=== PATIENT | female | born 1945 | race Caucasian/White ===

== ENCOUNTER 2018-03-14 07:57 | Emergency (ER) | payer BC, OTHER ==
[~2018-03-14] VITALS: Ht 162.6 cm; Wt 65.0 kg
[~2018-03-14 07:57] MED LIST: ASPI81CH5; LEVO.15; TAB-TAB; TOPR50TA
[2018-03-14 08:00] VITALS: BP 163/64; PULSE 97; RESP 16; TEMP 97.4; O2SAT 98
[2018-03-14] MEDS ORDERED: LOSA100T2 PO (08:17)
[2018-03-14] MEDS ORDERED: ATOR20TA15 PO (08:17)
[2018-03-14] MEDS ORDERED: LEVO137T2 PO (08:17)
[2018-03-14] MEDS ORDERED: DONE5TAB7 PO (08:17)
[2018-03-14] MEDS ORDERED: ASPI81CH7 CHEW (08:17)
[2018-03-14] MEDS ORDERED: FLUO20CA12 PO (08:17)
--- NOTE | 2018-03-14 08:36 | PD ---
HPI Chief Complaint: Headache Time Seen by Provider: 08:19 Travel History International Travel<30 days: No Contact w/Intl Traveler<30days: No Traveled to known affect area: No History of Present Illness HPI This patient complains of many things. Primary complaint is headache. She has frontal headache for her 5 days. No thunderclap onset. No fever or head injury. She takes no blood thinners. It is unusual for her to have a headache. Patient had a couple days of uncontrollable vomiting and diarrhea. That has eased off today. Yesterday she had a fall and her right leg buckled underneath her causing her pain in the knee. However no direct trauma to it. She denies neurologic deficit. Symptom severity is moderate. No alleviating factors. No exacerbating factors. PFSH Past Medical History Arthritis: Yes Cardiovascular Problems: Yes (htn on meds) High Cholesterol: Yes Dementia: Yes Diabetes: No Diminished Hearing: No Hypertension: Yes Immunizations Current: Yes Thyroid Disease: Yes Tetanus Vaccination: Unknown ?: Not Past Surgical History Appendectomy: Yes Cholecystectomy: Yes Social History Alcohol Use: No Tobacco Use: No Substance Use: No Allergies-Medications (Allergen,Severity, Reaction): Coded Allergies: codeine (Unverified Allergy, Mild, 03/14/18) penicillin G (Unverified Allergy, Mild, 03/14/18) Reported Meds & Prescriptions Reported Meds & Active Scripts Active Tramadol (Tramadol HCl) 50 Mg Tab 50 Mg PO Q6H PRN Reported Levothyroxine (Levothyroxine Sodium) 137 Mcg Tab 137 Mcg PO DAILY Losartan-Hydrochlorothiazide 100-25 Mg Tab 1 Tab PO DAILY Donepezil 5 Mg Tab 5 Mg PO HS Atorvastatin (Atorvastatin Calcium) 20 Mg Tab 20 Mg PO HS Fluoxetine (Fluoxetine HCl) 20 Mg Capsule 20 Mg PO BID Aspirin Children's (Aspirin) 81 Mg Chew 81 Mg CHEW DAILY Review of Systems General / Constitutional: No: Fever Eyes: No: Visual changes HENT: Positive: Headaches Cardiovascular: No: Chest Pain or Discomfort Respiratory: No: Shortness of Breath Gastrointestinal: Positive: Nausea, Vomiting, Diarrhea, No: Abdominal Pain Genitourinary: No: Dysuria Musculoskeletal: Positive: Pain Skin: No Rash Neurologic: Positive: Headache, No: Weakness Psychiatric: No: Depression Endocrine: No: Polydipsia Hematologic/Lymphatic: No: Easy Bruising Physical Exam Narrative GENERAL: Well-nourished, well-developed patient with headache . SKIN: Focused skin assessment reveals no rash and nodules. Skin is Warm and dry. HEAD: Atraumatic. Normocephalic. EYES: Pupils equal and round. No scleral icterus. No injection or drainage. ENT: No nasal bleeding or discharge. Mucous membranes pink and moist. NECK: Trachea midline. No JVD. No midline tenderness or meningeal signs CARDIOVASCULAR: Regular rate and rhythm. No murmur appreciated. RESPIRATORY: No accessory muscle use. Clear to auscultation. Breath sounds equal bilaterally. GASTROINTESTINAL: Abdomen soft, non-tender, nondistended. Hepatic and splenic margins not palpable. MUSCULOSKELETAL: No obvious deformities. No clubbing. No cyanosis. No edema. No long bone tenderness of the legs. Good range of motion of joints of the legs NEUROLOGICAL: Awake and alert. No obvious cranial nerve deficits. Motor grossly within normal limits. Normal speech. PSYCHIATRIC: Appropriate mood and affect; insight and judgment normal. Data Data Last Documented VS Vital Signs Date Time Temp Pulse Resp B/P (MAP) Pulse Ox O2 Delivery O2 Flow Rate FiO2 03/14/18 08:47 83 16 143/69 (93) 97 Room Air 03/14/18 08:[address] Brain W/O Iv Contrast(Rout) (03/14/18 ) Iv Access Insert/Monitor (03/14/18 08:31) Basic Metabolic Panel (Bmp) (03/14/18 08:31) Complete Blood Count With Diff (03/14/18 08:31) Ondansetron Inj (Zofran Inj) (03/14/18 08:45) Morphine Inj (Morphine Inj) (03/14/18 08:45) Labs Laboratory Tests Test 03/14/18 08:40 White Blood Count 19.1 TH/MM3 Red Blood Count 4.71 MIL/MM3 Hemoglobin 14.1 GM/DL Hematocrit 43.2 % Mean Corpuscular Volume 91.7 FL Mean Corpuscular Hemoglobin 29.8 PG Mean Corpuscular Hemoglobin Concent 32.5 % Red Cell Distribution Width 12.1 % Platelet Count 284 TH/MM3 Mean Platelet Volume 7.8 FL Neutrophils (%) (Auto) 82.8 % Lymphocytes (%) (Auto) 5.4 % Monocytes (%) (Auto) 8.0 % Eosinophils (%) (Auto) 0.4 % Basophils (%) (Auto) 3.4 % Neutrophils # (Auto) 15.8 TH/MM3 Lymphocytes # (Auto) 1.0 TH/MM3 Monocytes # (Auto) 1.5 TH/MM3 Eosinophils # (Auto) 0.1 TH/MM3 Basophils # (Auto) 0.7 TH/MM3 CBC Comment AUTO DIFF Differential Comment AUTO DIFF CONFIRMED Platelet Estimate NORMAL Platelet Morphology Comment NORMAL Red Cell Morphology Comment NORMAL Blood Urea Nitrogen 19 MG/DL Creatinine 0.81 MG/DL Random Glucose 102 MG/DL Calcium Level 10.0 MG/DL Sodium Level 137 MEQ/L Potassium Level 3.3 MEQ/L Chloride Level 103 MEQ/L Carbon Dioxide Level 25.5 MEQ/L Anion Gap 9 MEQ/L Estimat Glomerular Filtration Rate 70 ML/MIN [facility] Medical Decision Making Medical Screen Exam Complete: Yes Emergency Medical Condition: Yes Medical Record Reviewed: Yes Differential Diagnosis Differential diagnosis includes migraine, tension headache, cluster headache, meningitis. Narrative Course I have reviewed the patient's electronic medical record. No objective findings on exam. She is neurologically intact. Vital signs normal Brain CT is negative for acute findings IV placed and labs sent I gave her dose of Zofran and morphine for symptom relief She is clinically improved on recheck. Metabolic studies normal CBC shows some nonspecific leukocytosis She is not having fever or any obvious signs or symptoms of infection. She is a retired nurse. We discussed her leukocytosis and an extensive workup to look for infection but she does not want to undertake that. She is a close friend of her physician Dr. Yaron Salazar. She texted him regarding this visit and he will follow her up closely in the office. I prescribed a dozen tramadol Diagnosis Primary Impression: Headache Qualified Codes: R51 - Headache Additional Impressions: Nausea vomiting and diarrhea Leukocytosis Qualified Codes: D72.829 - Elevated white blood cell count, unspecified Additional Instructions: The patient was advised to follow up with their physician and return if they worsen. The patient was warned about potential sedation for the medications they will receive on prescription. Med/Other Pt SpecificInfo: Prescription(s) given Scripts Tramadol (Tramadol) 50 Mg Tab 50 MG PO Q6H Y for PAIN, #12 TAB 0 Refills Prov: John Ross MD 4/15/18 Disposition: 01 DISCHARGE HOME Condition: Stable John Ross MD Mar 14, 2018 08:36
[2018-03-14 08:45] LABS: AUTOMATED NEUTROPHIL # 15.8 TH/MM3 (1.8-7.7); BASOPHIL # 0.7 TH/MM3 (0-0.2); BASOPHIL % 3.4 % (0.0-2.0); EOSINOPHIL # 0.1 TH/MM3 (0-0.4); EOSINOPHIL % 0.4 % (0.0-4.0); HEMATOCRIT 43.2 % (35.0-46.0); HEMOGLOBIN 14.1 GM/DL (11.6-15.3); LYMPH % 5.4 % (9.0-44.0); MEAN CELL VOLUME 91.7 FL (80.0-100.0); MEAN CORPUSCULAR HEMOGLOBIN 29.8 PG (27.0-34.0); MEAN CORPUSCULAR HGB CONC 32.5 % (32.0-36.0); MEAN PLATELET VOLUME 7.8 FL (7.0-11.0); MONOCYTE # 1.5 TH/MM3 (0-0.9); NEUT % 82.8 % (16.0-70.0); PLATELET COUNT 284 TH/MM3 (150-450); RED BLOOD COUNT 4.71 MIL/MM3 (4.00-5.30); RED CELL DISTRIBUTION WIDTH 12.1 % (11.6-17.2); WHITE BLOOD COUNT 19.1 TH/MM3 (4.0-11.0)
[2018-03-14] MEDS ORDERED: MORPHINE SULFATE 4 MG/ML INJ IV PUSH ONE (08:45)
[2018-03-14] MEDS ORDERED: ONDANSETRON HCL 4 MG/2 ML VIAL IVP ONE (08:45)
[2018-03-14 08:47] VITALS: BP 143/69; PULSE 83; RESP 16; O2SAT 97
[2018-03-14 09:00] LABS: BICARBONATE 25.5 MEQ/L (21.0-32.0)
[2018-03-14 09:04] LABS: CREATININE 0.81 MG/DL (0.50-1.00)
--- NOTE | 2018-03-14 09:10 | RADRPT ---
EXAM DATE/TIME: 03/14/2018 08:59 [facility] COMPARISON: No previous studies available for comparison. INDICATIONS : Severe headache with nausea and vomiting. RADIATION DOSE: 51.36 CTDIvol (mGy) MEDICAL HISTORY : Hypertension. SURGICAL HISTORY : Appendectomy. Cholecystectomy. ENCOUNTER: Initial ACUITY: 4 - 6 days PAIN SCALE: 8/10 LOCATION: cranial TECHNIQUE: Multiple contiguous axial images were obtained of the head. Using automated exposure control and adj ustment of the mA and/or kV according to patient size, radiation dose was kept as low as reasonably a chievable to obtain optimal diagnostic quality images. DICOM format image data is available electro nically for review and comparison. FINDINGS: CEREBRUM: The ventricles are normal for age. No evidence of midline shift, mass lesion, hemorrhage or acute in farction. No extra-axial fluid collections are seen. POSTERIOR FOSSA: The cerebellum and brainstem are intact. The 4th ventricle is midline. The cerebellopontine angle i s unremarkable. EXTRACRANIAL: The visualized portion of the orbits is intact. SKULL: The calvaria is intact. No evidence of skull fracture. CONCLUSION: Negative for acute process. Subacute subarachnoid hemorrhage or meningitis can't be excluded. Mejia Fuentes MD FACR on March 14, 2018 at 9:07 Board Certified Radiologist. This report was verified electronically.
[2018-03-14] MEDS ORDERED: TRAM50TA PO (09:55)
[2018-03-14 10:05] VITALS: BP 176/74
== END 2018-03-14 10:20 | disposition home or self-care (01) ==
LOC: PHED 07:57
DX: R51 Headache (principal); R11.2 Nausea with vomiting, unspecified; D72.829 Elevated white blood cell count, unspecified; R19.7 Diarrhea, unspecified; M25.561 Pain in right knee; M19.90 Unspecified osteoarthritis, unspecified site; I10 Essential (primary) hypertension; E78.00 Pure hypercholesterolemia, unspecified; E07.9 Disorder of thyroid, unspecified
CPT/HCPCS: 70450; 80048; 85025; 96374; 96375; 99284; J2270; J2405

== ENCOUNTER 2018-03-17 09:55 | Inpatient (IN) | payer OTHER, MEDICARE ==
[~2018-03-17] VITALS: Ht 167.6 cm; Wt 63.2 kg
[2018-03-17] VITALS (9 sets, daily range): BP systolic 119–162; BP diastolic 55–74; PULSE 74–91; RESP 16–20; TEMP 97.9–100.9; O2SAT 95–98
[~2018-03-17 09:55] MED LIST changes: -ASPI81CH5; +ASPI81CH7 CHEW; +ATOR20TA15 PO; +DONE5TAB7 PO; +FLUO20CA12 PO; -LEVO.15; +LEVO137T2 PO; +LOSA100T2 PO; -TAB-TAB; -TOPR50TA; +TRAM50TA PO
[2018-03-17] MEDS ORDERED: SODIUM CHLOR 0.9% 1000 ML INJ 1,000 ML IV ONE (10:15)
--- NOTE | 2018-03-17 10:15 | PD ---
HPI Chief Complaint: Fall Time Seen by Provider: 10:03 Travel History International Travel<30 days: No Contact w/Intl Traveler<30days: No Traveled to known affect area: No History of Present Illness HPI This 72-year-old female says that she fell at around 8:00 last night. She fell backwards and hit her head. She said she had a loss of consciousness. She was not able to get off the floor and she spent the night on the floor. She has a history of neuropathy of unknown known etiology. She apparently saw Dr. Segundo at one time and had a spinal tap. She has been having back pain. She also says she also had a fall on Thursday night. She was seen in the emergency department on Thursday and had a CT scan of the head which was negative. She also had a fall last week. Her daughter has, provided additional information. She says that the patient has been told in the past that she has MS though she is on no medication. She had a spinal tap many years ago and then had another spinal tap 2 years ago. She has been having back pain prior to her fall and has had progressive weakness over a period of time. Daughter states that many years ago the patient was in a wheelchair and did have a loss of vision in 1 eye. The daughter says that the patient was told that she has MS many years ago she had a evaluation with Dr. GARZA about 2 years ago which included a spinal tap but the daughter believes the results were inconclusive. The patient later volunteered that she has been having some vaginal bleeding and lower abdominal pain. PFSH Past Medical History Arthritis: Yes Cardiovascular Problems: Yes (htn on meds) High Cholesterol: Yes Dementia: Yes Diabetes: No Diminished Hearing: No Hypertension: Yes Immunizations Current: Yes Thyroid Disease: Yes Past Surgical History Appendectomy: Yes Cholecystectomy: Yes Social History Alcohol Use: No Tobacco Use: No Substance Use: No Allergies-Medications (Allergen,Severity, Reaction): Coded Allergies: codeine (Unverified Allergy, Mild, 03/14/18) penicillin G (Unverified Allergy, Mild, 03/14/18) Reported Meds & Prescriptions Reported Meds & Active Scripts Active Tramadol (Tramadol HCl) 50 Mg Tab 50 Mg PO Q6H PRN Reported Levothyroxine (Levothyroxine Sodium) 137 Mcg Tab 137 Mcg PO DAILY Losartan-Hydrochlorothiazide 100-25 Mg Tab 1 Tab PO DAILY Donepezil 5 Mg Tab 5 Mg PO HS Atorvastatin (Atorvastatin Calcium) 20 Mg Tab 20 Mg PO HS Fluoxetine (Fluoxetine HCl) 20 Mg Capsule 20 Mg PO BID Aspirin Children's (Aspirin) 81 Mg Chew 81 Mg CHEW DAILY Review of Systems General / Constitutional: No: Fever, Chills Eyes: No: Diploplia, Blurred Vision HENT: Positive: Headaches Cardiovascular: No: Chest Pain or Discomfort, Palpitations Respiratory: No: Cough, Shortness of Breath Gastrointestinal: No: Nausea, Vomiting Genitourinary: No: Urgency, Frequency Musculoskeletal: No: Myalgias, Arthralgias Skin: No Rash, No Itching Neurologic: Positive: Weakness Psychiatric: No: Anxiety Endocrine: No: Heat Intolerance, Cold Intolerance Hematologic/Lymphatic: No: Easy Bruising Physical Exam Narrative GENERAL: Well-developed female SKIN: Focused skin assessment warm/dry. HEAD: Atraumatic. Normocephalic. There is a tender area in the occipital scalp EYES: Pupils equal and round. No scleral icterus. No injection or drainage. ENT: No nasal bleeding or discharge. Mucous membranes pink and moist. NECK: Trachea midline. No JVD. No midline tenderness of the neck CARDIOVASCULAR: Regular rate and rhythm. No murmur appreciated. RESPIRATORY: No accessory muscle use. Clear to auscultation. Breath sounds equal bilaterally. GASTROINTESTINAL: Abdomen soft, non-tender, nondistended. Hepatic and splenic margins not palpable. Pelvic: There is a large amount of pus in the vaginal vault. The uterus is enlarged to the level of the umbilicus and is somewhat tender MUSCULOSKELETAL: No obvious deformities. No clubbing. No cyanosis. No edema. She has some tenderness of the very low back NEUROLOGICAL: Awake and alert. No obvious cranial nerve deficits. Inspector Electromechanical are equal. Legs appear quite weak. She is unable to lift either leg against gravity. She is able to plantar and dorsiflex her feet. Babinski appears to be upgoing on the right. At times She appears to be hallucinating PSYCHIATRIC: Mood is fluctuating Data Data Last Documented VS Vital Signs Date Time Temp Pulse Resp B/P (MAP) Pulse Ox O2 Delivery O2 Flow Rate FiO2 03/17/18 13:30 74 16 152/62 (92) 97 03/17/18 09:55 97.9 Orders Orders Electrocardiogram (03/17/18 10:04) Complete Blood Count With Diff (03/17/18 10:04) Comprehensive Metabolic Panel (03/17/18 10:04) Creatine Kinase (Cpk) (03/17/18 10:04) Troponin I (03/17/18 10:04) Urinalysis - C+S If Indicated (03/17/18 10:04) Chest, Single Ap (03/17/18 10:04) Ct Brain W/O Iv Contrast(Rout) (03/17/18 10:04) Ct Lumb Spine W/O Contrast (03/17/18 10:04) Sodium Chlor 0.9% 1000 Ml Inj (Ns 1000 M (03/17/18 10:15) Mri L Spine W&W/O Contrast (03/17/18 ) CKMB (03/17/18 10:10) CKMB% (03/17/18 10:10) Ns + Kcl 20 Meq Inj (Ns + Kcl 20 Meq Inj (03/17/18 12:45) Sodium Chlorid 0.9% 500 Ml Inj (Ns 500 M (03/17/18 13:15) Creatine Kinase (Cpk) (03/17/18 13:30) Troponin I (03/17/18 13:30) Drug Screen, Random Urine (03/17/18 13:36) Urine Culture (03/17/18 13:30) Gadodiamide Pf Inj (Omniscan Pf Inj) (03/17/18 14:25) Wound Culture And Gram Stain (03/17/18 14:49) Ct Abd/Pel W Iv Contrast(Rout) (03/17/18 14:49) Ondansetron Inj (Zofran Inj) (03/17/18 15:00) Morphine Inj (Morphine Inj) (03/17/18 15:00) Labs Laboratory Tests Test 03/17/18 10:10 03/17/18 13:30 03/17/18 14:35 White Blood Count 17.9 TH/MM3 Red Blood Count 4.44 MIL/MM3 Hemoglobin 13.9 GM/DL Hematocrit 40.7 % Mean Corpuscular Volume 91.6 FL Mean Corpuscular Hemoglobin 31.3 PG Mean Corpuscular Hemoglobin Concent 34.2 % Red Cell Distribution Width 12.6 % Platelet Count 245 TH/MM3 Mean Platelet Volume 8.2 FL Neutrophils (%) (Auto) 91.3 % Lymphocytes (%) (Auto) 3.0 % Monocytes (%) (Auto) 5.3 % Eosinophils (%) (Auto) 0.2 % Basophils (%) (Auto) 0.2 % Neutrophils # (Auto) 16.5 TH/MM3 Lymphocytes # (Auto) 0.5 TH/MM3 Monocytes # (Auto) 0.9 TH/MM3 Eosinophils # (Auto) 0.0 TH/MM3 Basophils # (Auto) 0.0 TH/MM3 CBC Comment DIFF FINAL Differential Comment Blood Urea Nitrogen 35 MG/DL Creatinine 1.10 MG/DL Random Glucose 85 MG/DL Total Protein 7.0 GM/DL Albumin 2.7 GM/DL Calcium Level 10.7 MG/DL Alkaline Phosphatase 250 U/L Aspartate Amino Transf (AST/SGOT) 98 U/L Alanine Aminotransferase (ALT/SGPT) 98 U/L Total Bilirubin 0.8 MG/DL Sodium Level 135 MEQ/L Potassium Level 3.4 MEQ/L Chloride Level 98 MEQ/L Carbon Dioxide Level 25.7 MEQ/L Anion Gap 11 MEQ/L Estimat Glomerular Filtration Rate 49 ML/MIN Total Creatine Kinase 402 U/L Creatine Kinase MB 61.1 NG/ML Creatine Kinase MB % 15.2 % Troponin I LESS THAN 0.02 NG/ML Urine Collection Type CATH Urine Color YELLOW Urine Turbidity CLOUDY Urine pH 5.5 Urine Specific [place] 1.025 Urine Protein 100 mg/dL Urine Glucose (UA) NEG mg/dL Urine Ketones 40 mg/dL Urine Occult Blood LARGE Urine Nitrite NEG Urine Bilirubin NEG Urine Urobilinogen 1.0 MG/DL Urine Leukocyte Esterase NEG Urine RBC 0-3 /hpf Urine WBC 3-5 /hpf Urine Squamous Epithelial Cells 0-3 /hpf Urine Amorphous Sediment FEW Urine Bacteria RARE /hpf Urine Hyaline Casts 6-9 /lpf Urine Fine Granular Casts 6-9 /lpf Microscopic Urinalysis Comment CULTURE INDICATED MDM Medical Decision Making Medical Screen Exam Complete: Yes Emergency Medical Condition: Yes Medical Record Reviewed: Yes Differential Diagnosis Differential includes MS exacerbation, HNP, fracture Narrative Course CT scan of the lumbar spine shows extensive degenerative changes with significant spinal stenosis from L2 through L4. CT of the brain shows senescent changes with mild periventricular small vessel white matter demyelination. CPK is 400. Troponin is 0.02. EKG shows normal sinus rhythm. An MRI of the lumbar spine shows advanced multilevel degenerative spondylosis of the lumbar spine with severe canal narrowing. It was when the patient was going to MRI of that was noted that she was having vaginal bleeding. And that is the point which I did the pelvic exam. I have ordered a CT abdomen and pelvis with contrast to assess these abnormalities she has large amount of purulent drainage in the vaginal vault with an enlarged uterus Javier Maldonado MD Mar 17, 2018 10:15
[2018-03-17 10:24] LABS: AUTOMATED NEUTROPHIL # 16.5 TH/MM3 (1.8-7.7); BASOPHIL % 0.2 % (0.0-2.0); EOSINOPHIL % 0.2 % (0.0-4.0); HEMATOCRIT 40.7 % (35.0-46.0); HEMOGLOBIN 13.9 GM/DL (11.6-15.3); LYMPHOCYTE # 0.5 TH/MM3 (1.0-4.8); MEAN CELL VOLUME 91.6 FL (80.0-100.0); MEAN CORPUSCULAR HEMOGLOBIN 31.3 PG (27.0-34.0); MEAN CORPUSCULAR HGB CONC 34.2 % (32.0-36.0); MEAN PLATELET VOLUME 8.2 FL (7.0-11.0); MONO % 5.3 % (0.0-8.0); MONOCYTE # 0.9 TH/MM3 (0-0.9); NEUT % 91.3 % (16.0-70.0); PLATELET COUNT 245 TH/MM3 (150-450); RED BLOOD COUNT 4.44 MIL/MM3 (4.00-5.30); RED CELL DISTRIBUTION WIDTH 12.6 % (11.6-17.2); WHITE BLOOD COUNT 17.9 TH/MM3 (4.0-11.0)
--- NOTE | 2018-03-17 11:02 | RADRPT ---
EXAM DATE/TIME: 03/17/2018 10:36 [facility] COMPARISON: CT BRAIN W/O CONTRAST, March 14, 2018, 8:59. INDICATIONS : Trauma. Fell last night and was on the floor all night. Cephalgia. RADIATION DOSE: 52.46 CTDIvol (mGy) MEDICAL HISTORY : Dementia. Hypertension. SURGICAL HISTORY : Appendectomy. Cholecystectomy. ENCOUNTER: Initial ACUITY: 1 day PAIN SCALE: 10/10 LOCATION: cranial TECHNIQUE: Multiple contiguous axial images were obtained of the head. Using automated exposure control and adj ustment of the mA and/or kV according to patient size, radiation dose was kept as low as reasonably a chievable to obtain optimal diagnostic quality images. DICOM format image data is available electro nically for review and comparison. FINDINGS: CEREBRUM: Mild diffuse triple volume loss. Mild periventricular white matter hypodensities. The ventricles are normal for degree of atrophy. No evidence of midline shift, mass lesion, hemorrhage or acute infarct ion. No extra-axial fluid collections are seen. POSTERIOR FOSSA: The cerebellum and brainstem are intact. The 4th ventricle is midline. The cerebellopontine angle i s unremarkable. EXTRACRANIAL: The visualized portion of the orbits is intact. SKULL: The calvaria is intact. No evidence of skull fracture. CONCLUSION: 1. Senescent changes with mild periventricular small vessel ischemic white matter demyelination. 2. No acute intracranial abnormality. Jaxon Rivera MD on March 17, 2018 at 10:58 Board Certified Radiologist. This report was verified electronically.
--- NOTE | 2018-03-17 11:14 | RADRPT ---
EXAM DATE/TIME: 03/17/2018 10:50 [facility] COMPARISON: No previous studies available for comparison. INDICATIONS : Pain post fall. MEDICAL HISTORY : Hypertension. SURGICAL HISTORY : Appendectomy. Cholecystectomy. ENCOUNTER: Initial ACUITY: 1 day PAIN SCORE: 5/10 LOCATION: lumbar spine FINDINGS: A single view of the chest demonstrates the lungs to be symmetrically aerated without evidence of mas s, infiltrate or effusion. The cardiomediastinal contours are unremarkable. Osseous structures are intact. CONCLUSION: No acute disease. Mejia Fuentes MD FACR on March 17, 2018 at 11:11 Board Certified Radiologist. This report was verified electronically.
--- NOTE | 2018-03-17 11:30 | EKG ---
Date Performed: 03/17/2018 Time Performed: 10:13:02 PTAGE: 72 years EKG: Sinus rhythm POSSIBLE LEFT ATRIAL ENLARGEMENT BORDERLINE LEFT AXIS DEVIATION BORDERLINE ECG NO PREVIOUS TRACING DOCTOR: Rosenda Belle Interpretating Date/Time 03/17/2018 11:29:38
--- NOTE | 2018-03-17 11:52 | RADRPT ---
EXAM DATE/TIME: 03/17/2018 10:39 [facility] COMPARISON: No previous studies available for comparison. INDICATIONS : Trauma. Fell last night and was on the floor all night. Low back pain. RADIATION DOSE: 36.85 CTDIvol (mGy) MEDICAL HISTORY : Dementia. Hypertension. SURGICAL HISTORY : Appendectomy. Cholecystectomy. ENCOUNTER: Initial ACUITY: 1 day PAIN SCALE: 6/10 LOCATION: Lumbar spine. TECHNIQUE: Volumetric scanning of the lumbar spine was performed. Multiplanar reconstructions in the sagittal, coronal and oblique axial planes were performed. Using automated exposure control and adjustment of the mA and/or kV according to patient size, radiation dose was kept as low as reasonably achievable t o obtain optimal diagnostic quality images. DICOM format image data is available electronically for review and comparison. FINDINGS: VERTEBRAE: Normal vertebral body height. ALIGNMENT: Vacuum disc and discogenic changes are seen at L4-5 and L5-S1. T12-L1: Mild disc bulging evident without stenosis. L1-L2: Vacuum disc evident with generalized bulging, ligament hypertrophy and facet disease with moderate sp inal stenosis. L2-L3: Generalized disc bulging with hypertrophy and degenerative changes of facets with moderate to severe spinal stenosis. L3-L4: Generalized disc bulging with lateral recess stenosis, facet disease and ligament hypertrophy with se kesha spinal stenosis. L4-L5: Severe spinal stenosis and extensive facet disease. Significant left-sided neural foramina encroachm ent. Packing changes in the right facet and left facets at this motion. L5-S1: Severe spinal stenosis and bilateral neural foramina encroachment extension facet disease. Degenerative changes both SI joints Retroperitoneum intact with prominent bladder. CONCLUSION: Extensive degenerative changes radiographically significant spinal stenosis from L2-L4. Mejia Fuentes MD FACR on March 17, 2018 at 11:48 Board Certified Radiologist. This report was verified electronically.
[2018-03-17 12:17] LABS: ALBUMIN 2.7 GM/DL (3.4-5.0); AST (GOT) 98 U/L (15-37); BICARBONATE 25.7 MEQ/L (21.0-32.0); BLOOD UREA NITROGEN 35 MG/DL (7-18); CALCIUM 10.7 MG/DL (8.5-10.1); CHLORIDE 98 MEQ/L (98-107); GLOMERULAR FILTRATION RATE 49 ML/MIN (>89); GLUCOSE,RANDOM 85 MG/DL (74-106); SODIUM (NA) 135 MEQ/L (136-145)
[2018-03-17 12:18] LABS: ALT (GPT) 98 U/L (10-53)
[2018-03-17 12:22] LABS: ALKALINE PHOSPHATASE 250 U/L (45-117); TOTAL BILIRUBIN ADULT 0.8 MG/DL (0.2-1.0); TROPONIN I LESS THAN 0.02 NG/ML (0.02-0.05)
[2018-03-17] MEDS ORDERED: NS + KCL 20 MEQ INJ 1,000 ML IV ONE (12:45)
[2018-03-17] MEDS ORDERED: SODIUM CHLORID 0.9% 500 ML INJ 500 ML IV ONE (13:15)
[2018-03-17 13:57] LABS: BLOOD, URINE LARGE (NEG); GLUCOSE,URINE NEG (NEG); KETONE, URINE 40 mg/dL (NEG); NITRITE,URINE NEG (NEG); PH, URINE 5.5 (5.0-8.5); URINE COLOR YELLOW (YELLW/STRAW); URINE LEUKOCYTE ESTERASE NEG (NEG)
[2018-03-17 14:07] LABS: BILIRUBIN, URINE NEG (NEG)
[2018-03-17 14:11] LABS: RBC, URINE 0-3 /hpf (0-3); SQUAMOUS EPITHELIAL CELL URINE 0-3 /hpf (0-5)
[2018-03-17 14:12] LABS: AMORPHOUS SEDIMENT, URINE FEW; BACTERIA, URINE RARE /hpf
[2018-03-17] MEDS ORDERED: GADODIAMIDE PF 287 MG/ML 5 ML VIAL (for RAD MRI) IVCONTRAST ONE (14:25)
--- NOTE | 2018-03-17 14:58 | RADRPT ---
EXAM DATE/TIME: 03/17/2018 13:57 [facility] COMPARISON: No previous studies available for comparison. INDICATIONS : Mulitple sclerosis. Bilateral leg weakness. Abnormal CT. CONTRAST: 13 cc Omniscan (gadodiamide) IV MEDICAL HISTORY : Hypertension. SURGICAL HISTORY : Cholecystectomy. Left foot surgery. ENCOUNTER: Subsequent ACUITY: 1 day PAIN SCORE: 0/10 LOCATION: back. TECHNIQUE: Multiplanar multisequence MRI of the lumbar spine was performed with and without contrast. FINDINGS: The most caudal appearing lumbar vertebra is numbered as L5. VERTEBRAE: Diffusely heterogeneous degenerative signal. Vertebral body heights are intact. CONUS: Normal level and configuration. POST CONTRAST: 2 separate sequences were obtained due to significant motion. Despite this, there is severe motion de gradation limiting the evaluation. There's no significant abnormal bony enhancement although evaluati on of the conus is essentially not possible. T12-L1: Moderate bilateral facet arthropathy. No significant central canal or neural foraminal stenosis. L1-L2: Disc space loss with vacuum disc phenomenon. Diffuse disc bulge with bilateral facet arthropathy. Eff acement of the anterior thecal sac with central canal measuring 12 mm. Mild caudal neural foraminal n arrowing. L2-L3: Disc space narrowing with Modic endplate changes are. Diffuse disc bulge, ligamentum flavum hypertrop hy and bilateral facet arthropathy. Resultant central canal narrowing to 7 mm. Mild caudal bilateral neural frontal narrowing. L3-L4: Disc space narrowing with diffuse disc bulge, ligamentum flavum hypertrophy and prominent bilateral f acet arthropathy. Central canal narrowing to approximately 5 mm. Mild to moderate caudal bilateral ne ural foraminal narrowing. L4-L5: Severe disc space narrowing with diffuse disc bulge, ligamentum flavum hypertrophy and facet arthropa thy. Central canal is essentially completely effaced at this level measuring less than 3 mm. There is severe left neural foraminal narrowing and mild to moderate right neural foraminal narrowing. L5-S1: Severe disc space narrowing with diffuse disc bulge and facet arthropathy. Central canal measuring ap proximately 8 mm. Severe left and moderate severe right neural foraminal narrowing. CONCLUSION: 1. Very limited postcontrast images due to motion degradation. No significant abnormal enhancement al though evaluation of the conus is not possible. 2. Redemonstration of advanced multilevel degenerative spondylosis of the lumbar spine with multileve l severe spinal canal narrowing most prominently at L4-5 with near-complete effacement of the central canal. 3. Multilevel variable neural foraminal stenosis most prominently on the left at L4-5 and L5-S1. 4. Please see above for detailed description of each level. Jaxon Rivera MD on March 17, 2018 at 14:45 Board Certified Radiologist. This report was verified electronically.
[2018-03-17] MEDS ORDERED: ONDANSETRON HCL 4 MG/2 ML VIAL IV PUSH ONE (15:00)
[2018-03-17] MEDS ORDERED: MORPHINE SULFATE 8 MG/ML INJ IV PUSH ONE (15:00)
--- NOTE | 2018-03-17 15:15 | PD ---
Physical Exam Date Seen by Provider: Mar 17, 2018 Time Seen by Provider: 15:10 Narrative The patient is a 72-year-old female who was initially evaluated by Dr. Avery. Please refer to the initial history, physical, diagnostic evaluation, treatment modality plan. The patient was signed out at [address] the abdomen and pelvis pending. Data Data Last Documented VS Vital Signs Date Time Temp Pulse Resp B/P (MAP) Pulse Ox O2 Delivery O2 Flow Rate FiO2 03/17/18 16:17 16 03/17/18 16:10 89 127/62 (83) 95 Room Air 03/17/18 09:55 97.9 Orders Orders Electrocardiogram (03/17/18 10:04) Complete Blood Count With Diff (03/17/18 10:04) Comprehensive Metabolic Panel (03/17/18 10:04) Creatine Kinase (Cpk) (03/17/18 10:04) Troponin I (03/17/18 10:04) Urinalysis - C+S If Indicated (03/17/18 10:04) Chest, Single Ap (03/17/18 10:04) Ct Brain W/O Iv Contrast(Rout) (03/17/18 10:04) Ct Lumb Spine W/O Contrast (03/17/18 10:04) Sodium Chlor 0.9% 1000 Ml Inj (Ns 1000 M (03/17/18 10:15) Mri L Spine W&W/O Contrast (03/17/18 ) CKMB (03/17/18 10:10) CKMB% (03/17/18 10:10) Ns + Kcl 20 Meq Inj (Ns + Kcl 20 Meq Inj (03/17/18 12:45) Sodium Chlorid 0.9% 500 Ml Inj (Ns 500 M (03/17/18 13:15) Creatine Kinase (Cpk) (03/17/18 13:30) Troponin I (03/17/18 13:30) Drug Screen, Random Urine (03/17/18 13:36) Urine Culture (03/17/18 13:30) Gadodiamide Pf Inj (Omniscan Pf Inj) (03/17/18 14:25) Wound Culture And Gram Stain (03/17/18 14:49) Ct Abd/Pel W Iv Contrast(Rout) (03/17/18 14:49) Ondansetron Inj (Zofran Inj) (03/17/18 15:00) Morphine Inj (Morphine Inj) (03/17/18 15:00) Iohexol 350 Inj (Omnipaque 350 Inj) (03/17/18 15:59) Doxycycline (Vibramycin) (03/17/18 16:30) Metronidazole (Flagyl) (03/17/18 16:30) Admit Order (Ed Use Only) (03/17/18 16:56) Gamma Gt (Ggt) (03/17/18 14:35) Magnesium (Mg) (03/17/18 14:35) CKMB (03/17/18 14:35) CKMB% (03/17/18 14:35) Labs Laboratory Tests Test 03/17/18 10:10 03/17/18 13:30 03/17/18 14:35 White Blood Count 17.9 TH/MM3 Red Blood Count 4.44 MIL/MM3 Hemoglobin 13.9 GM/DL Hematocrit 40.7 % Mean Corpuscular Volume 91.6 FL Mean Corpuscular Hemoglobin 31.3 PG Mean Corpuscular Hemoglobin Concent 34.2 % Red Cell Distribution Width 12.6 % Platelet Count 245 TH/MM3 Mean Platelet Volume 8.2 FL Neutrophils (%) (Auto) 91.3 % Lymphocytes (%) (Auto) 3.0 % Monocytes (%) (Auto) 5.3 % Eosinophils (%) (Auto) 0.2 % Basophils (%) (Auto) 0.2 % Neutrophils # (Auto) 16.5 TH/MM3 Lymphocytes # (Auto) 0.5 TH/MM3 Monocytes # (Auto) 0.9 TH/MM3 Eosinophils # (Auto) 0.0 TH/MM3 Basophils # (Auto) 0.0 TH/MM3 CBC Comment DIFF FINAL Differential Comment Blood Urea Nitrogen 35 MG/DL Creatinine 1.10 MG/DL Random Glucose 85 MG/DL Total Protein 7.0 GM/DL Albumin 2.7 GM/DL Calcium Level 10.7 MG/DL Alkaline Phosphatase 250 U/L Aspartate Amino Transf (AST/SGOT) 98 U/L Alanine Aminotransferase (ALT/SGPT) 98 U/L Total Bilirubin 0.8 MG/DL Sodium Level 135 MEQ/L Potassium Level 3.4 MEQ/L Chloride Level 98 MEQ/L Carbon Dioxide Level 25.7 MEQ/L Anion Gap 11 MEQ/L Estimat Glomerular Filtration Rate 49 ML/MIN Total Creatine Kinase 402 U/L 309 U/L Creatine Kinase MB 61.1 NG/ML 43.3 NG/ML Creatine Kinase MB % 15.2 % 14.0 % Troponin I LESS THAN 0.02 NG/ML LESS THAN 0.02 NG/ML Urine Collection Type CATH Urine Color YELLOW Urine Turbidity CLOUDY Urine pH 5.5 Urine Specific [place] 1.025 Urine Protein 100 mg/dL Urine Glucose (UA) NEG mg/dL Urine Ketones 40 mg/dL Urine Occult Blood LARGE Urine Nitrite NEG Urine Bilirubin NEG Urine Urobilinogen 1.0 MG/DL Urine Leukocyte Esterase NEG Urine RBC 0-3 /hpf Urine WBC 3-5 /hpf Urine Squamous Epithelial Cells 0-3 /hpf Urine Amorphous Sediment FEW Urine Bacteria RARE /hpf Urine Hyaline Casts 6-9 /lpf Urine Fine Granular Casts 6-9 /lpf Microscopic Urinalysis Comment CULTURE INDICATED Urine Opiates Screen NEG Urine Barbiturates Screen NEG Urine Amphetamines Screen NEG Urine Benzodiazepines Screen NEG Urine Cocaine Screen NEG Urine Cannabinoids Screen NEG Magnesium Level 1.8 MG/DL Gamma Glutamyl Transpeptidase 217 U/L [facility] Medical Record Reviewed: Yes Supervised Visit with BRIEN: No Interpretation(s) EKG reveals normal sinus rhythm with a rate of 63. Laboratory Tests Test 03/17/18 10:10 03/17/18 13:30 03/17/18 14:35 White Blood Count 17.9 TH/MM3 Red Blood Count 4.44 MIL/MM3 Hemoglobin 13.9 GM/DL Hematocrit 40.7 % Mean Corpuscular Volume 91.6 FL Mean Corpuscular Hemoglobin 31.3 PG Mean Corpuscular Hemoglobin Concent 34.2 % Red Cell Distribution Width 12.6 % Platelet Count 245 TH/MM3 Mean Platelet Volume 8.2 FL Neutrophils (%) (Auto) 91.3 % Lymphocytes (%) (Auto) 3.0 % Monocytes (%) (Auto) 5.3 % Eosinophils (%) (Auto) 0.2 % Basophils (%) (Auto) 0.2 % Neutrophils # (Auto) 16.5 TH/MM3 Lymphocytes # (Auto) 0.5 TH/MM3 Monocytes # (Auto) 0.9 TH/MM3 Eosinophils # (Auto) 0.0 TH/MM3 Basophils # (Auto) 0.0 TH/MM3 CBC Comment DIFF FINAL Differential Comment Blood Urea Nitrogen 35 MG/DL Creatinine 1.10 MG/DL Random Glucose 85 MG/DL Total Protein 7.0 GM/DL Albumin 2.7 GM/DL Calcium Level 10.7 MG/DL Alkaline Phosphatase 250 U/L Aspartate Amino Transf (AST/SGOT) 98 U/L Alanine Aminotransferase (ALT/SGPT) 98 U/L Total Bilirubin 0.8 MG/DL Sodium Level 135 MEQ/L Potassium Level 3.4 MEQ/L Chloride Level 98 MEQ/L Carbon Dioxide Level 25.7 MEQ/L Anion Gap 11 MEQ/L Estimat Glomerular Filtration Rate 49 ML/MIN Total Creatine Kinase 402 U/L Creatine Kinase MB 61.1 NG/ML Creatine Kinase MB % 15.2 % Troponin I LESS THAN 0.02 NG/ML Urine Collection Type CATH Urine Color YELLOW Urine Turbidity CLOUDY Urine pH 5.5 Urine Specific [place] 1.025 Urine Protein 100 mg/dL Urine Glucose (UA) NEG mg/dL Urine Ketones 40 mg/dL Urine Occult Blood LARGE Urine Nitrite NEG Urine Bilirubin NEG Urine Urobilinogen 1.0 MG/DL Urine Leukocyte Esterase NEG Urine RBC 0-3 /hpf Urine WBC 3-5 /hpf Urine Squamous Epithelial Cells 0-3 /hpf Urine Amorphous Sediment FEW Urine Bacteria RARE /hpf Urine Hyaline Casts 6-9 /lpf Urine Fine Granular Casts 6-9 /lpf Microscopic Urinalysis Comment CULTURE INDICATED Last Impressions Lumbar Spine CT 03/17/18 1004 Signed Impressions: Service Date/Time: Saturday, March 17, 2018 10:39 - CONCLUSION: Extensive degenerative changes radiographically significant spinal stenosis from L2-L4. Mejia Fuentes MD FACR Head CT 03/17/18 1004 Signed Impressions: Service Date/Time: Saturday, March 17, 2018 10:36 - CONCLUSION: 1. Senescent changes with mild periventricular small vessel ischemic white matter demyelination. 2. No acute intracranial abnormality. Jaxon Rivera MD Chest X-Ray 03/17/18 1004 Signed Impressions: Service Date/Time: Saturday, March 17, 2018 10:50 - CONCLUSION: No acute disease. Mejia Fuentes MD FACR Lumbar Spine MRI 03/17/18 0000 Signed Impressions: Service Date/Time: Saturday, March 17, 2018 13:57 - CONCLUSION: 1. Very limited postcontrast images due to motion degradation. No significant abnormal enhancement although evaluation of the conus is not possible. 2. Redemonstration of advanced multilevel degenerative spondylosis of the lumbar spine with multilevel severe spinal canal narrowing most prominently at L4-5 with near-complete effacement of the central canal. 3. Multilevel variable neural foraminal stenosis most prominently on the left at L4-5 and L5-S1. 4. Please see above for detailed description of each level. Jaxon Rivera MD CT of the abdomen and pelvis reveals uterus is distended with heterogeneous debris. The appearance would be most consistent with uterine obstruction is associated with endometrial or cervical carcinoma. Differential Diagnosis Differential diagnosis includes MS, inability to ambulate, herniated disc, cauda equina syndrome, uterine tumor, PID, vaginitis, UTI, pelvic infection, fistula, rhabdomyolysis, closed head injury, intracranial hemorrhage. Narrative Course The patient is a 72-year-old female who was initially evaluated by the previous physician, Dr. Avery. Please refer to the initial history, physical, diagnostic evaluation, and treatment modality plan. The patient was signed out at [address] of the abdomen and pelvis pending for significant vaginal discharge with foul odor and enlarged uterus on physical examination. The patient apparently fell and struck her head with an LOC. CT of the brain was negative. The patient also complained of increasing low back pain with questionable history of MS. The patient did have an MRI of the lumbar spine with and without contrast which revealed some degenerative changes but no acute significant findings. The patient was signed out with CT of the abdomen and pelvis pending and subsequent admission as the patient has difficulty ambulating it was lying on the floor overnight. CT of the abdomen and pelvis reveals an enlarged uterus with debris within, suspicious for possible outlet obstruction secondary to uterine and/or cervical carcinoma. Patient has [employer] , therefore, the on-call [facility] was paged for admission. Sepsis Criteria SIRS Criteria (2 or more): WBC > 77121, < 4000 or > 10% bands Physician Communication Physician Communication The patient has [employer], therefore, [facility] were paged for admission. I discussed the patient with Dr. Moore who agrees with admission. Diagnosis Primary Impression: Uterine infection Additional Impressions: Back pain Qualified Codes: M54.5 - Low back pain; G89.29 - Other chronic pain Rhabdomyolysis Qualified Codes: T79.6XXA - Traumatic ischemia of muscle, initial encounter Admitting Information Admitting Physician Requests: Observation Condition: Stable Edilson Aburto MD Mar 17, 2018 15:15
[2018-03-17] MEDS ORDERED: IOHEXOL 350 MG/ML 10 ML VIAL (for RAD DIAG) IVCONTRAST ONE (15:59)
--- NOTE | 2018-03-17 16:16 | RADRPT ---
EXAM DATE/TIME: 03/17/2018 15:47 [facility] COMPARISON: No previous studies available for comparison. INDICATIONS : Abnormal uterus in prior MR and CT imaging. IV CONTRAST: 75 cc Omnipaque 350 (iohexol) IV ORAL CONTRAST: No oral contrast ingested. RADIATION DOSE: 11.80 CTDIvol (mGy) MEDICAL HISTORY : Multple sclerosis. Dementia. Hypertension. SURGICAL HISTORY : Appendectomy. Cholecystectomy. ENCOUNTER: Initial ACUITY: 1 day PAIN SCALE: 0/10 LOCATION: abdomen TECHNIQUE: Volumetric scanning of the abdomen and pelvis was performed. Using automated exposure control and ad justment of the mA and/or kV according to patient size, radiation dose was kept as low as reasonably achievable to obtain optimal diagnostic quality images. DICOM format image data is available electro nically for review and comparison. FINDINGS: LOWER LUNGS: Mild posterior lung base atelectasis. LIVER: Mild intra-and extrahepatic biliary ductal dilatation. No focal liver mass. Gallbladder is surgically absent SPLEEN: Normal size without lesion. PANCREAS: Within normal limits. KIDNEYS: Normal in size and shape. There is no mass, stone or hydronephrosis. ADRENAL GLANDS: Within normal limits. VASCULAR: There is no aortic aneurysm. BOWEL/MESENTERY: Distal colonic diverticulosis. No abnormal dilatation, wall thickening or focal inflammatory changes. ABDOMINAL WALL: Within normal limits. RETROPERITONEUM: There is no lymphadenopathy. BLADDER: No wall thickening or mass. REPRODUCTIVE: The uterus is grossly abnormal, appearing to be filled with abundant debris. The appearance be consis tent with cervical obstruction as likely from cancer. INGUINAL: There is no lymphadenopathy or hernia. MUSCULOSKELETAL: Prominent degenerative changes in the spine. Bone island in the left iliac wing. Degenerative changes in the hips. CONCLUSION: Uterus is distended with heterogeneous debris. The appearance would be most consistent with uterine o bstruction as associated with endometrial or cervical carcinoma. Mario Goodrich MD on March 17, 2018 at 16:09 Board Certified Radiologist. This report was verified electronically.
[2018-03-17] MEDS ORDERED: metroNIDAZOLE 500 MG TAB PO ONE (16:30)
[2018-03-17] MEDS ORDERED: DOXYCYCLINE HYCLATE 100 MG CAP PO ONE (16:30)
[2018-03-17] MEDS ORDERED: SENNOSIDES 8.6 MG TAB PO PRN (18:00)
[2018-03-17] MEDS ORDERED: ONDANSETRON HCL 4 MG/2 ML VIAL IVP PRN (18:00)
[2018-03-17] MEDS ORDERED: ZOLPIDEM TARTRATE 5 MG TAB PO PRN (18:00)
[2018-03-17] MEDS ORDERED: MAGNESIUM HYDROXIDE SUSP 30 ML CUP PO PRN (18:00)
[2018-03-17] MEDS ORDERED: NALOXONE HCL 0.4 MG/ML AMP IV PUSH PRN (18:00)
[2018-03-17] MEDS ORDERED: BISACODYL 10 MG SUPP RECTAL PRN (18:00)
[2018-03-17] MEDS ORDERED: LACTULOSE SYRUP 20 GM/30 ML CUP PO PRN (18:00)
[2018-03-17] MEDS ORDERED: SODIUM CHLORIDE 0.9% FLUSH 10 ML FLUSH IV FLUSH PRN (18:00)
[2018-03-17 18:22] LABS: GAMMA GT 217 U/L (5-55); MAGNESIUM 1.8 MG/DL (1.5-2.5)
[2018-03-17 18:25] LABS: TROPONIN I LESS THAN 0.02 NG/ML (0.02-0.05)
[2018-03-17] MEDS ORDERED: ACETAMINOPHEN 325 MG TAB PO ONE (19:15)
[2018-03-17] MEDS: LACTATED RINGER'S 1000 ML INJ 1,000 ML IV SCH (19:16)
[2018-03-17] MEDS: DOCUSATE SODIUM 50 MG/SENNA 8.6 MG TAB PO SCH (21:00)
[2018-03-17] MEDS: SODIUM CHLORIDE 0.9% FLUSH 10 ML FLUSH IV FLUSH SCH (23:07)
[2018-03-18 00:23] VITALS: BP 122/64; PULSE 76; RESP 16; TEMP 97.8; O2SAT 96
[2018-03-18] MEDS: LACTATED RINGER'S 1000 ML INJ 1,000 ML IV SCH ×2 (04:00→15:32)
[2018-03-18 04:20] VITALS: BP 131/66; PULSE 77; RESP 17; TEMP 98.2; O2SAT 97
[2018-03-18] MEDS: LEVOTHYROXINE SODIUM 112 MCG TAB PO SCH (07:04)
[2018-03-18] MEDS: LEVOTHYROXINE SODIUM 25 MCG TAB PO SCH (07:06)
[2018-03-18 07:51] LABS: BASOPHIL % 0.2 % (0.0-2.0); EOSINOPHIL # 0.1 TH/MM3 (0-0.4); EOSINOPHIL % 0.6 % (0.0-4.0); HEMATOCRIT 33.5 % (35.0-46.0); HEMOGLOBIN 11.3 GM/DL (11.6-15.3); LYMPH % 8.7 % (9.0-44.0); LYMPHOCYTE # 1.1 TH/MM3 (1.0-4.8); MEAN CELL VOLUME 92.5 FL (80.0-100.0); MEAN CORPUSCULAR HEMOGLOBIN 31.2 PG (27.0-34.0); MEAN CORPUSCULAR HGB CONC 33.8 % (32.0-36.0); MEAN PLATELET VOLUME 8.7 FL (7.0-11.0); MONO % 12.8 % (0.0-8.0); MONOCYTE # 1.6 TH/MM3 (0-0.9); NEUT % 77.7 % (16.0-70.0); PLATELET COUNT 201 TH/MM3 (150-450); RED BLOOD COUNT 3.62 MIL/MM3 (4.00-5.30); WHITE BLOOD COUNT 12.9 TH/MM3 (4.0-11.0)
[2018-03-18 07:53] VITALS: BP 161/85; PULSE 62; RESP 16; TEMP 97.9; O2SAT 98
[2018-03-18 08:03] LABS: ALKALINE PHOSPHATASE 172 U/L (45-117); ALT (GPT) 66 U/L (10-53); AST (GOT) 62 U/L (15-37); BICARBONATE 26.1 MEQ/L (21.0-32.0); BLOOD UREA NITROGEN 27 MG/DL (7-18); CALCIUM 9.4 MG/DL (8.5-10.1); CHLORIDE 109 MEQ/L (98-107); CREATININE 0.81 MG/DL (0.50-1.00); GLOMERULAR FILTRATION RATE 70 ML/MIN (>89); GLUCOSE,RANDOM 80 MG/DL (74-106); SODIUM (NA) 142 MEQ/L (136-145); TOTAL BILIRUBIN ADULT 0.3 MG/DL (0.2-1.0); TOTAL PROTEIN 5.4 GM/DL (6.4-8.2)
[2018-03-18] MEDS ORDERED: POTASSIUM CHLORIDE 10 MEQ CONTROLLED RELEASE TAB PO ONE (09:00)
[2018-03-18] MEDS: HYDROCHLOROTHIAZIDE 25 MG TAB PO SCH (09:29)
[2018-03-18] MEDS: LOSARTAN 50 MG TAB PO SCH (09:29)
[2018-03-18] MEDS: SODIUM CHLORIDE 0.9% FLUSH 10 ML FLUSH IV FLUSH SCH ×2 (09:29→21:00)
[2018-03-18] MEDS: DOCUSATE SODIUM 50 MG/SENNA 8.6 MG TAB PO SCH ×2 (09:29→23:08)
[2018-03-18] MEDS: traMADol HCL 50 MG TAB PO PRN ×2 (09:30→18:43)
[2018-03-18 11:40] VITALS: BP 164/72; PULSE 77; RESP 16; TEMP 97.9; O2SAT 97
[2018-03-18] MEDS ORDERED: methylPREDNISolone SOD SUCC 125 MG/2 ML VIAL IV PUSH ONE (14:30)
--- NOTE | 2018-03-18 14:37 | HHI.HP ---
[facility] Service [facility] Primary Care Physician Yaron Salazar M.D. Admission Diagnosis Uterine obstruction rule out carcinoma, inability to ambulate, leuko Diagnoses: Travel History International Travel<30 Days: No Contact w/Intl Traveler <30 Da: No Traveled to Known Affected Are: No History of Present Illness Mrs. Downing is a 72-year-old female. She is here today after having a gradual onset of weakness. She says she has had an onset of dyspepsia, headache and lower extremity numbness. Over the past 1-2 weeks. Just over the past 2 days she has had a acute worsening of her weakness and had 2 falls. She may have multiple sclerosis. At the age of 22 she had some sort of exacerbation and was suspected to have multiple sclerosis. She has not had exacerbations since then. This could be multiple sclerosis or alternative autoimmune exacerbation. She also complains of vaginal bleeding. Gynecology has been consulted in this regard. No other complaints today. Review of Systems Constitutional: COMPLAINS OF: Fatigue, DENIES: Fever Eyes: DENIES: Blurred vision, Diplopia, Eye inflammation, Eye pain Respiratory: DENIES: Cough, Wheezing, Shortness of breath Cardiovascular: DENIES: Chest pain, Palpitations, Syncope Gastrointestinal: DENIES: Abdominal pain, Black stools, Bloody stools, Constipation Musculoskeletal: DENIES: Joint pain, Muscle aches, Stiffness Integumentary: DENIES: Abnormal pigmentation, Pruritus, Rash, Nail changes Hematologic/lymphatic: DENIES: Bruising, Lymphadenopathy Immunologic/allergic: DENIES: Eczema, Urticaria Neurologic: COMPLAINS OF: Headache, Localized weakness, Paresthesias, Poor Balance, DENIES: Abnormal gait Psychiatric: DENIES: Anxiety, Confusion, Hallucinations Past Family Social History Past Medical History Osteoarthritis Hypertension Hyperlipidemia Mild dementia Hypothyroidism Past Surgical History Appendectomy Cholecystectomy Reported Medications Reported Meds & Active Scripts Active Tramadol (Tramadol HCl) 50 Mg Tab 50 Mg PO Q6H PRN Reported Levothyroxine (Levothyroxine Sodium) 137 Mcg Tab 137 Mcg PO DAILY Losartan-Hydrochlorothiazide 100-25 Mg Tab 1 Tab PO DAILY Donepezil 5 Mg Tab 5 Mg PO HS Atorvastatin (Atorvastatin Calcium) 20 Mg Tab 20 Mg PO HS Fluoxetine (Fluoxetine HCl) 20 Mg Capsule 20 Mg PO BID Aspirin Children's (Aspirin) 81 Mg Chew 81 Mg CHEW DAILY Allergies: Coded Allergies: codeine (Unverified Allergy, Mild, 03/14/18) penicillin G (Unverified Allergy, Mild, 03/14/18) Active Ordered Medications Administered Medications Medications (Trade) Dose Ordered Sig/Kareem Route PRN Reason Start Time Stop Time Status Last Admin Dose Admin Lactated Ringer's 1,000 ml @ 100 mls/hr Q10H IV 03/17/18 18:00 03/18/18 04:00 Sodium Chloride (NS Flush) 2 ml BID IV FLUSH 03/17/18 21:00 03/18/18 09:29 Senna/Docusate Sodium (Nargis-Colace) 1 tab BID PO 03/17/18 21:00 03/18/18 09:29 Tramadol HCl (Ultram) 50 mg Q6H PRN PO PAIN 03/17/18 18:00 03/18/18 09:30 Levothyroxine Sodium (Synthroid) 112 mcg DAILY@0600 PO 03/18/18 06:00 03/18/18 07:04 Losartan Potassium (Cozaar) 100 mg DAILY PO 03/18/18 09:00 03/18/18 09:29 Hydrochlorothiazide (Hydrodiuril) 25 mg DAILY PO 03/18/18 09:00 03/18/18 09:29 Levothyroxine Sodium (Synthroid) 25 mcg DAILY@0600 PO 03/18/18 06:00 03/18/18 07:06 Family History No known family history Social History No alcohol use No nicotine use No illicit drug abuse Physical Exam Vital Signs Vital Signs Date Time Temp Pulse Resp B/P (MAP) Pulse Ox O2 Delivery O2 Flow Rate FiO2 03/18/18 11:40 97.9 77 16 164/72 (102) 97 03/18/18 07:53 97.9 62 16 161/85 (110) 98 03/18/18 04:20 98.2 77 17 131/66 (87) 97 03/18/18 00:23 97.8 76 16 122/64 (83) 96 03/17/18 22:10 99.1 82 20 119/64 (82) 98 03/17/18 20:30 86 20 119/55 (76) 98 03/17/18 19:26 100.9 91 20 162/74 (103) 03/17/18 19:18 92 16 97 03/17/18 17:52 85 16 146/64 (91) 95 Room Air 03/17/18 16:17 16 03/17/18 16:10 89 16 127/62 (83) 95 Room Air 03/17/18 16:00 88 16 95 Room Air 03/17/18 15:30 82 16 127/64 (85) 95 Room Air Physical Exam GENERAL: This is a well-nourished, well-developed patient, in no apparent distress. SKIN: No rashes, ecchymoses or lesions. Cool and dry. HEAD: Atraumatic. Normocephalic. No temporal or scalp tenderness. EYES: Pupils equal round and reactive. Extraocular motions intact. No scleral icterus. No injection or drainage. ENT: Nose without bleeding, purulent drainage or septal hematoma. Throat without erythema, tonsillar hypertrophy or exudate. Uvula midline. Airway patent. NECK: Trachea midline. No JVD or lymphadenopathy. Supple, nontender, no meningeal signs. CARDIOVASCULAR: Regular rate and rhythm without murmurs, gallops, or rubs. RESPIRATORY: Clear to auscultation. Breath sounds equal bilaterally. No wheezes , rales, or rhonchi. GASTROINTESTINAL: Abdomen soft, non-tender, nondistended. No hepato-splenomegaly , or palpable masses. No guarding. MUSCULOSKELETAL: Extremities without clubbing, cyanosis, or edema. No joint tenderness, effusion, or edema noted. No calf tenderness. Negative Homans sign bilaterally. NEUROLOGICAL: Awake and alert. Cranial nerves II through XII intact. Motor and sensory grossly within normal limits. Five out of 5 muscle strength in all muscle groups. Normal speech. Laboratory Laboratory Tests Test 03/17/18 14:35 03/18/18 06:50 Magnesium Level 1.8 Gamma Glutamyl Transpeptidase 217 Total Creatine Kinase 309 Creatine Kinase MB 43.3 Creatine Kinase MB % 14.0 Troponin I LESS THAN 0.02 White Blood Count 12.9 Red Blood Count 3.62 Hemoglobin 11.3 Hematocrit 33.5 Mean Corpuscular Volume 92.5 Mean Corpuscular Hemoglobin 31.2 Mean Corpuscular Hemoglobin Concent 33.8 Red Cell Distribution Width 13.0 Platelet Count 201 Mean Platelet Volume 8.7 Neutrophils (%) (Auto) 77.7 Lymphocytes (%) (Auto) 8.7 Monocytes (%) (Auto) 12.8 Eosinophils (%) (Auto) 0.6 Basophils (%) (Auto) 0.2 Neutrophils # (Auto) 10.0 Lymphocytes # (Auto) 1.1 Monocytes # (Auto) 1.6 Eosinophils # (Auto) 0.1 Basophils # (Auto) 0.0 CBC Comment DIFF FINAL Differential Comment Blood Urea Nitrogen 27 Creatinine 0.81 Random Glucose 80 Total Protein 5.4 Albumin 2.0 Calcium Level 9.4 Alkaline Phosphatase 172 Aspartate Amino Transf (AST/SGOT) 62 Alanine Aminotransferase (ALT/SGPT) 66 Total Bilirubin 0.3 Sodium Level 142 Potassium Level 3.2 Chloride Level 109 Carbon Dioxide Level 26.1 Anion Gap 7 Estimat Glomerular Filtration Rate 70 Date/Time Source Procedure Growth Status 03/17/18 13:30 Urine Catheterized Urine Urine Culture Pending Received 03/17/18 15:00 Wound Groin Gram Stain - Final Resulted 03/17/18 15:00 Wound Groin Wound Culture Pending Resulted Result Diagram: 03/18/18 0650 03/18/18 0650 Caprini VTE Risk Assessment Caprini VTE Risk Assessment: Mod/High Risk (score >= 2) Caprini Risk Assessment Model Point Value = 1 Point Value = 2 Point Value = 3 Point Value = 5 Age 41-60 Minor surgery BMI > 25 kg/m2 Swollen legs Varicose veins or History of unexplained or recurrent spontaneous Oral contraceptives or hormone replacement Sepsis (< 1 month) Serious lung disease, including pneumonia (< 1 month) Abnormal pulmonary function Acute myocardial infarction Congestive heart failure (< 1 month) History of inflammatory bowel disease Medical patient at bed rest Age 61-74 Arthroscopic surgery Major open surgery (> 45 min) Laparoscopic surgery (> 45 min) Malignancy Confined to bed (> 72 hours) Immobilizing plaster cast Central venous access Age >= 75 History of VTE Family history of VTE Factor V Leiden Prothrombin [id number] Lupus anticoagulant Anticardiolipin antibodies Elevated serum homocysteine Heparin-induced thrombocytopenia Other congenital or acquired thrombophilia Stroke (< 1 month) Elective arthroplasty Hip, pelvis, or leg fracture Acute spinal cord injury (< 1 month) Prophylaxis Regimen Total Risk Factor Score Risk Level Prophylaxis Regimen 0-1 Low Early ambulation 2 Moderate Order ONE of the following: *Sequential Compression Device (SCD) *Heparin 5000 units SQ BID 3-4 Higher Order ONE of the following medications: *Heparin 5000 units SQ TID *Enoxaparin/Lovenox 40 mg SQ daily (WT < 150 kg, CrCl > 30 mL/min) *Enoxaparin/Lovenox 30 mg SQ daily (WT < 150 kg, CrCl > 10-29 mL/min) *Enoxaparin/Lovenox 30 mg SQ BID (WT < 150 kg, CrCl > 30 mL/min) AND/OR *Sequential Compression Device (SCD) 5 or more Highest Order ONE of the following medications: *Heparin 5000 units SQ TID (Preferred with Epidurals) *Enoxaparin/Lovenox 40 mg SQ daily (WT < 150 kg, CrCl > 30 mL/min) *Enoxaparin/Lovenox 30 mg SQ daily (WT < 150 kg, CrCl > 10-29 mL/min) *Enoxaparin/Lovenox 30 mg SQ BID (WT < 150 kg, CrCl > 30 mL/min) AND *Sequential Compression Device (SCD) Assessment and Plan Problem List: (1) Uterine infection ICD Code: N71.9 - Inflammatory disease of uterus, unspecified Status: Acute (2) Rhabdomyolysis ICD Code: M62.82 - Rhabdomyolysis Status: Acute (3) Back pain ICD Code: M54.9 - Dorsalgia, unspecified Status: Acute Assessment and Plan 66-year-old female admitted secondary to inflammatory exacerbation, suspected to be multiple sclerosis with evidence of uterine infection. Multiple sclerosis exacerbation versus autoimmune exacerbation High-dose systemic steroids Monitor for improvement in symptoms Physical therapy Follow for improvement Uterine infection Could be contributory to an autoimmune exacerbation Doxycycline Gynecology following Follow CBC Hypertension Continue baseline treatment Follow blood pressures Adjust treatments as needed Hyperlipidemia Continue present treatment Follow as an outpatient Mild dementia Supportive care Hypothyroidism Continue baseline treatments Follow as an outpatient DVT prophylaxis Lovenox Physician Certification 2 Midnight Certification Type: Admission for Inpatient Services Order for Inpatient Services The services are ordered in accordance with Medicare regulations or non- Medicare payer requirements, as applicable. In the case of services not specified as inpatient-only, they are appropriately provided as inpatient services in accordance with the 2-midnight benchmark. Estimated LOS (days): 2 days is the estimated time the patient will need to remain in the hospital, assuming treatment plan goals are met and no additional complications. Post-Hospital Plan: Home Problem Qualifiers (1) Rhabdomyolysis: Qualified Codes: T79.6XXA - Traumatic ischemia of muscle, initial encounter (2) Back pain: Qualified Codes: M54.5 - Low back pain; G89.29 - Other chronic pain Geo Bravo MD Mar 18, 2018 14:37
[2018-03-18 15:06] VITALS: BP 153/72; PULSE 68; RESP 16; TEMP 98; O2SAT 97
[2018-03-18] MEDS: ENOXAPARIN SODIUM 40 MG/0.4 ML SYRINGE SQ SCH (15:32)
[2018-03-18 21:09] VITALS: BP 152/72; PULSE 78; RESP 16; TEMP 98.5; O2SAT 96
[2018-03-18] MEDS: DONEPEZIL HCL 5 MG TAB PO SCH (23:08)
[2018-03-18] MEDS: ATORVASTATIN 20 MG TAB PO SCH (23:08)
[2018-03-18] MEDS: FLUoxetine HCL 20 MG CAP PO SCH (23:09)
[2018-03-18] MEDS: methylPREDNISolone SOD SUCC 40 MG/1 ML VIAL IV PUSH SCH (23:11)
[2018-03-19] VITALS (7 sets, daily range): BP systolic 130–183; BP diastolic 65–103; PULSE 54–76; RESP 16–20; TEMP 97.5–98.9; O2SAT 94–99
[2018-03-19] MEDS: methylPREDNISolone SOD SUCC 40 MG/1 ML VIAL IV PUSH SCH ×4 (02:31→21:03)
[2018-03-19] MEDS: LACTATED RINGER'S 1000 ML INJ 1,000 ML IV SCH ×4 (02:32→22:50)
[2018-03-19] MEDS: LEVOTHYROXINE SODIUM 25 MCG TAB PO SCH (05:35)
[2018-03-19] MEDS: LEVOTHYROXINE SODIUM 112 MCG TAB PO SCH (05:35)
[2018-03-19 07:47] LABS: BASOPHIL % 0.1 % (0.0-2.0); EOSINOPHIL % 0.1 % (0.0-4.0); HEMATOCRIT 34.8 % (35.0-46.0); HEMOGLOBIN 11.8 GM/DL (11.6-15.3); LYMPH % 4.4 % (9.0-44.0); LYMPHOCYTE # 0.7 TH/MM3 (1.0-4.8); MEAN CORPUSCULAR HEMOGLOBIN 31.2 PG (27.0-34.0); MEAN CORPUSCULAR HGB CONC 33.9 % (32.0-36.0); MEAN PLATELET VOLUME 8.6 FL (7.0-11.0); MONO % 3.7 % (0.0-8.0); MONOCYTE # 0.6 TH/MM3 (0-0.9); NEUT % 91.7 % (16.0-70.0); PLATELET COUNT 205 TH/MM3 (150-450); RED BLOOD COUNT 3.78 MIL/MM3 (4.00-5.30); RED CELL DISTRIBUTION WIDTH 13.2 % (11.6-17.2); WHITE BLOOD COUNT 15.2 TH/MM3 (4.0-11.0)
[2018-03-19 08:20] LABS: ALBUMIN 1.8 GM/DL (3.4-5.0); ALKALINE PHOSPHATASE 169 U/L (45-117); ALT (GPT) 51 U/L (10-53); AST (GOT) 46 U/L (15-37); BICARBONATE 28.9 MEQ/L (21.0-32.0); BLOOD UREA NITROGEN 14 MG/DL (7-18); CALCIUM 9.5 MG/DL (8.5-10.1); CHLORIDE 108 MEQ/L (98-107); CREATININE 0.61 MG/DL (0.50-1.00); GLOMERULAR FILTRATION RATE 97 ML/MIN (>89); GLUCOSE,RANDOM 136 MG/DL (74-106); SODIUM (NA) 143 MEQ/L (136-145); TOTAL BILIRUBIN ADULT 0.3 MG/DL (0.2-1.0); TOTAL PROTEIN 5.4 GM/DL (6.4-8.2)
[2018-03-19] MEDS: HYDROCHLOROTHIAZIDE 25 MG TAB PO SCH (08:56)
[2018-03-19] MEDS: ASPIRIN 81 MG CHEW TAB CHEW SCH (08:56)
[2018-03-19] MEDS: LOSARTAN 50 MG TAB PO SCH (08:57)
[2018-03-19] MEDS: FLUoxetine HCL 20 MG CAP PO SCH ×2 (08:57→21:02)
[2018-03-19] MEDS: SODIUM CHLORIDE 0.9% FLUSH 10 ML FLUSH IV FLUSH SCH ×2 (08:57→21:02)
[2018-03-19] MEDS: DOCUSATE SODIUM 50 MG/SENNA 8.6 MG TAB PO SCH ×2 (08:57→21:02)
[2018-03-19 10:39] LABS: BANDS 25 % (0-6); LYMPHOCYTES 4 % (9-44); MONOCYTES 1 % (0-8); NEUTROPHIL # MANUAL DIFF 14.3 TH/MM3 (1.8-7.7); PLASMA CELLS 1 % (0-0); POLYS (SEG NEUTROPHILS) 69 % (16-70)
--- NOTE | 2018-03-19 11:33 | PD.CONS ---
History of Present Illness Service EDISCOVERY PROJECT MANAGER CONSULTATION NOTE Consult Requested By [facility] Reason for Consult Mass on CT Primary Care Physician Yaron Salazar M.D. Diagnoses: History of Present Illness This is a 72-year-old who presented to the ED with severe muscular pain in her full body. She is admitted for further workup and started on steroids. She notes that she has had 6-7 days of abdominal pain, vaginal bleeding/discharge, and headache. Denies shortness of breath or chest pain. She did have a fall at home on Thursday morning of unknown etiology. Review of Systems Constitutional: COMPLAINS OF: Weight loss (16 pounds last 2 months), DENIES: Fever Eyes: DENIES: Blurred vision, Diplopia Respiratory: DENIES: Cough, Shortness of breath Cardiovascular: DENIES: Chest pain, Syncope Gastrointestinal: COMPLAINS OF: Abdominal pain Genitourinary: COMPLAINS OF: Abnormal vaginal bleeding, Vaginal discharge Musculoskeletal: DENIES: Joint pain, Muscle aches Integumentary: DENIES: Pruritus, Rash Hematologic/lymphatic: DENIES: Bruising, Lymphadenopathy Neurologic: DENIES: Abnormal gait, Headache Psychiatric: DENIES: Anxiety, Confusion Past Family Social History Allergies: Coded Allergies: codeine (Unverified Allergy, Mild, 03/14/18) penicillin G (Unverified Allergy, Mild, 03/14/18) Past Medical History Hypertension, hypothyroidism, hyperlipidemia Past Surgical History Tonsillectomy, appendectomy, cholecystitis Reported Medications Reported Meds & Active Scripts Active Tramadol (Tramadol HCl) 50 Mg Tab 50 Mg PO Q6H PRN Reported Levothyroxine (Levothyroxine Sodium) 137 Mcg Tab 137 Mcg PO DAILY Losartan-Hydrochlorothiazide 100-25 Mg Tab 1 Tab PO DAILY Donepezil 5 Mg Tab 5 Mg PO HS Atorvastatin (Atorvastatin Calcium) 20 Mg Tab 20 Mg PO HS Fluoxetine (Fluoxetine HCl) 20 Mg Capsule 20 Mg PO BID Aspirin Children's (Aspirin) 81 Mg Chew 81 Mg CHEW DAILY Active Ordered Medications Inpatient Medications Acetaminophen (Tylenol) 650 mg ONCE ONCE PO Last administered on 03/17/18at 19: 17; Start 03/17/18 at 19:15; Stop 03/17/18 at 19:16; Status DC Aspirin (Aspirin Chew) 81 mg DAILY CHEW Last administered on 03/19/18at 08:56; Start 03/19/18 at 09:00 Atorvastatin Calcium (Lipitor) 20 mg HS PO Last administered on 03/18/18 23:08 ; Start 03/18/18 at 21:00 Bisacodyl (Dulcolax Supp) 10 mg DAILY PRN RECTAL SEVERE CONSITIPATION; Start at 18:00 Donepezil HCl (Aricept) 5 mg HS PO Last administered on 03/18/18at 23:08; Start 03/18/18 at 21:00 Doxycycline Hyclate (Vibramycin) 100 mg ONCE ONCE PO Last administered on 03/17 18:01; Start 03/17/18 at 16:30; Stop 03/17/18 at 16:31; Status DC Enoxaparin Sodium (Lovenox Inj) 40 mg Q24H SQ Last administered on 03/18/18at 15 :32; Start 03/18/18 at 14:45 Fluoxetine HCl (PROzac) 20 mg BID PO Last administered on 03/19/18 08:57; Start 03/18/18 at 21:00 Hydrochlorothiazide (Hydrodiuril) 25 mg DAILY PO Last administered on 08:56; Start 03/18/18 at 09:00 Lactated Ringer's 1,000 ml @ 100 mls/hr Q10H IV Last administered on 10:00; Start 03/17/18 at 18:00 Lactulose (Lactulose Liq) 30 ml DAILY PRN PO SEVERE CONSITIPATION; Start at 18:00 Levothyroxine Sodium (Synthroid) 25 mcg DAILY@0600 PO Last administered on 03/19 05:35; Start 03/18/18 at 06:00 Losartan Potassium (Cozaar) 100 mg DAILY PO Last administered on 03/19/18 08: 57; Start 03/18/18 at 09:00 Magnesium Hydroxide (Milk Of Magnesia Liq) 30 ml Q12H PRN PO Mild constipation ; Start 03/17/18 at 18:00 Methylprednisolone Sodium Succinate (SoluMEDROL INJ) 40 mg Q6H IV PUSH Last administered on 03/19/18 08:57; Start 03/18/18 at 20:00 Metronidazole (Flagyl) 500 mg ONCE ONCE PO Last administered on 03/17/18at 18: 01; Start 03/17/18 at 16:30; Stop 03/17/18 at 16:31; Status DC Morphine Sulfate (Morphine Inj) 6 mg ONCE ONCE IV PUSH Last administered on at 15:01; Start 03/17/18 at 15:00; Stop 03/17/18 at 15:01; Status DC Naloxone HCl (Narcan Inj) 0.4 mg UNSCH PRN IV PUSH SEE LABEL COMMENTS; Start at 18:00 Ondansetron HCl (Zofran Inj) 4 mg Q6H PRN IVP NAUSEA OR VOMITING; Start at 18:00 Potassium Chloride/Sodium Chloride 1,000 ml @ 250 mls/hr Q4H ONCE IV Last administered on 03/17/18at 14:06; Start 03/17/18 at 12:45; Stop 03/17/18 at 16:44 ; Status DC Potassium Chloride (KCl) 30 meq ONCE ONCE PO Last administered on 03/18/18at 09 :30; Start 03/18/18 at 09:00; Stop 03/18/18 at 09:02; Status DC Senna/Docusate Sodium (Nargis-Colace) 1 tab BID PO Last administered on at 08:57; Start 03/17/18 at 21:00 Sennosides (Senokot) 17.2 mg Q12H PRN PO Moderate constipation; Start 03/17/18 at 18:00 Sodium Chloride (NS Flush) 2 ml BID IV FLUSH Last administered on 03/19/18at 08: 57; Start 03/17/18 at 21:00 Tramadol HCl (Ultram) 50 mg Q6H PRN PO PAIN Last administered on 03/18/18at 18: 43; Start 03/17/18 at 18:00 Zolpidem Tartrate (Ambien) 5 mg HS PRN PO INSOMNIA; Start 03/17/18 at 18:00 Family History Mother with breast cancer at advanced age Social History per EMR denies alcohol, tobacco, illicit drug use Physical Exam Vital Signs Vital Signs Date Time Temp Pulse Resp B/P (MAP) Pulse Ox O2 Delivery O2 Flow Rate FiO2 03/19/18 10:05 151/82 (105) 03/19/18 07:56 98.1 70 16 183/103 (129) 96 03/19/18 03:26 98.3 62 16 159/74 (102) 94 03/19/18 00:25 98.9 76 16 130/65 (86) 95 03/18/18 21:09 98.5 78 16 152/72 (98) 96 03/18/18 15:06 98.0 68 16 153/72 (99) 97 03/18/18 11:40 97.9 77 16 164/72 (102) 97 Physical Exam GENERAL: This is a well-nourished, well-developed patient, in no apparent distress. SKIN: There are healing abrasions ecchymoses on the bony prominences of the lower extremities and left elbow. Skin is cool and dry HEAD: Atraumatic. Normocephalic. No temporal or scalp tenderness. EYES: Pupils equal and EOMI. No scleral icterus. No injection or drainage. ENT: Airway patent. Trachea midline. RESPIRATORY: Clear to auscultation. Breath sounds equal bilaterally. No wheezes , rales, or rhonchi. GASTROINTESTINAL: Abdomen notable healed right upper quadrant surgical scar, palpable right lower quadrant nontender mass. No skin changes noted. No guarding. MUSCULOSKELETAL: Extremities without clubbing, cyanosis, or edema. No joint tenderness, effusion, or edema noted. NEUROLOGICAL: Awake and alert. Cranial nerves II through XII grossly intact. Normal speech. GENITOURINARY: External Genitalia: intact and normal in appearance. Speculum exam notable for malodorous serosanguineous fluid of large volume. Bimanual exam notable for 18 weeks size uterus. Palpated intravaginal mass appreciated on uterus vs cervix via bimanual exam. Cervix: large mass, unclear if mass visualized is cervical vs. uterine in origin Laboratory Laboratory Tests Test 03/19/18 06:51 White Blood Count 15.2 Red Blood Count 3.78 Hemoglobin 11.8 Hematocrit 34.8 Mean Corpuscular Volume 92.0 Mean Corpuscular Hemoglobin 31.2 Mean Corpuscular Hemoglobin Concent 33.9 Red Cell Distribution Width 13.2 Platelet Count 205 Mean Platelet Volume 8.6 Neutrophils (%) (Auto) 91.7 Lymphocytes (%) (Auto) 4.4 Monocytes (%) (Auto) 3.7 Eosinophils (%) (Auto) 0.1 Basophils (%) (Auto) 0.1 Neutrophils # (Auto) 14.0 Lymphocytes # (Auto) 0.7 Monocytes # (Auto) 0.6 Eosinophils # (Auto) 0.0 Basophils # (Auto) 0.0 CBC Comment AUTO DIFF Differential Total Cells Counted 100 Neutrophils % (Manual) 69 Band Neutrophils % 25 Lymphocytes % 4 Monocytes % 1 Neutrophils # (Manual) 14.3 Differential Comment FINAL DIFF MANUAL Plasma Cells 1 Platelet Estimate NORMAL Platelet Morphology Comment NORMAL Red Cell Morphology Comment NORMAL Blood Urea Nitrogen 14 Creatinine 0.61 Random Glucose 136 Total Protein 5.4 Albumin 1.8 Calcium Level 9.5 Alkaline Phosphatase 169 Aspartate Amino Transf (AST/SGOT) 46 Alanine Aminotransferase (ALT/SGPT) 51 Total Bilirubin 0.3 Sodium Level 143 Potassium Level 3.5 Chloride Level 108 Carbon Dioxide Level 28.9 Anion Gap 6 Estimat Glomerular Filtration Rate 97 Date/Time Source Procedure Growth Status 03/17/18 13:30 Urine Catheterized Urine Urine Culture - Preliminary NO GROWTH IN 24 HOURS. Resulted 03/17/18 15:00 Wound Groin Gram Stain - Final Complete 03/17/18 15:00 Wound Culture - Final Escherichia Coli Complete Result Diagram: 03/19/18 0651 03/19/18 0651 Imaging Last Impressions Abdomen/Pelvis CT 03/17/18 1449 Signed Impressions: Service Date/Time: Saturday, March 17, 2018 15:47 - CONCLUSION: Uterus is distended with heterogeneous debris. The appearance would be most consistent with uterine obstruction as associated with endometrial or cervical carcinoma. Mario Goodrich MD Lumbar Spine CT 03/17/18 1004 Signed Impressions: Service Date/Time: Saturday, March 17, 2018 10:39 - CONCLUSION: Extensive degenerative changes radiographically significant spinal stenosis from L2-L4. Mejia Fuentes MD FACR Head CT 03/17/18 1004 Signed Impressions: Service Date/Time: Saturday, March 17, 2018 10:36 - CONCLUSION: 1. Senescent changes with mild periventricular small vessel ischemic white matter demyelination. 2. No acute intracranial abnormality. Jaxon Rivera MD Chest X-Ray 03/17/18 1004 Signed Impressions: Service Date/Time: Saturday, March 17, 2018 10:50 - CONCLUSION: No acute disease. Mejia Fuentes MD FACR Lumbar Spine MRI 03/17/18 0000 Signed Impressions: Service Date/Time: Saturday, March 17, 2018 13:57 - CONCLUSION: 1. Very limited postcontrast images due to motion degradation. No significant abnormal enhancement although evaluation of the conus is not possible. 2. Redemonstration of advanced multilevel degenerative spondylosis of the lumbar spine with multilevel severe spinal canal narrowing most prominently at L4-5 with near-complete effacement of the central canal. 3. Multilevel variable neural foraminal stenosis most prominently on the left at L4-5 and L5-S1. 4. Please see above for detailed description of each level. Jaxon Rivera MD Assessment and Plan Assessment and Plan 72-year-old female with CT abdomen/pelvis findings malignancy. Uterus is distended with heterogeneous fiber within is also uterine outlet obstruction concerning for either endometrial or cervical carcinoma and clinical exam consistent with this differential. Additional concern is patient's 16-lb weight loss in 2 months. Differential also include fungating degenerating fibroid though is lower on the differential. No acute concern for infection at this time. Patient does require further workup prior to full disposition for this finding. Plan is as follows: * Obtain CA 19-9, CEA, CA-125. CA-125 elevated at 78. * Obtain Pelvic US: showing heterogeneous mass without obvious source. * Defer bedside biopsy given unclear etiology of mass and risk for bleeding. * Further disposition based on results * Will need EDISCOVERY PROJECT MANAGER follow-up - WOULD BENEFIT FROM DIRECT EDISCOVERY PROJECT MANAGER/ONCOLOGY FOLLOW UP SO NOT TO DELAY CARE. Patient was seen and discussed with Dr. Deshpande who agrees with above plan. Patient was discussed with Dr. Bravo who agrees with plan of care. Bonita King MD R2 Mar 19, 2018 11:33
--- NOTE | 2018-03-19 11:56 | HHI.PR ---
Subjective Remarks No new complaints today. She says her strength is improving. She feels like she could ambulate. Gynecological exam is highly suspect for cancer which is causing her uterine obstruction and symptoms. Further workup is in process. Objective Vital Signs Date Time Temp Pulse Resp B/P (MAP) Pulse Ox O2 Delivery O2 Flow Rate FiO2 03/19/18 10:05 151/82 (105) 03/19/18 07:56 98.1 70 16 183/103 (129) 96 03/19/18 03:26 98.3 62 16 159/74 (102) 94 03/19/18 00:25 98.9 76 16 130/65 (86) 95 03/18/18 21:09 98.5 78 16 152/72 (98) 96 03/18/18 15:06 98.0 68 16 153/72 (99) 97 I/O 03/18/18 03/18/18 03/18/18 03/19/18 03/19/18 03/19/18 07:00 15:00 23:00 07:00 15:00 23:00 Intake Total 1650 ml 1300 ml Output Total 300 ml 550 ml 300 ml Balance 1350 ml 750 ml -300 ml Intake Oral 250 ml 500 ml IV Total 1400 ml 800 ml Output Urine Total 300 ml 550 ml 300 ml Result Diagram: 03/19/18 0651 03/19/18 0651 Objective Remarks GENERAL: NAD, A&Ox3 HEAD: Normocephalic. NECK: Supple, trachea midline. No lymphadenopathy. EYES: No scleral icterus. No injection or drainage. CARDIOVASCULAR: Regular rate and rhythm without murmurs, gallops, or rubs. RESPIRATORY: Breath sounds equal bilaterally. No accessory muscle use. GASTROINTESTINAL: Abdomen soft, non-tender, nondistended. MUSCULOSKELETAL: No cyanosis, or edema. SKIN: Warm and dry. NEURO: No focal neurological deficitis. A/P Problem List: (1) Multiple sclerosis exacerbation ICD Code: G35 - Multiple sclerosis (2) Uterine mass ICD Code: N85.9 - Noninflammatory disorder of uterus, unspecified (3) Uterine infection ICD Code: N71.9 - Inflammatory disease of uterus, unspecified Status: Acute (4) Rhabdomyolysis ICD Code: M62.82 - Rhabdomyolysis Status: Acute (5) Back pain ICD Code: M54.9 - Dorsalgia, unspecified Status: Acute Assessment and Plan 66-year-old female admitted secondary to inflammatory exacerbation, suspected to be multiple sclerosis with evidence of uterine infection. Multiple sclerosis exacerbation versus autoimmune exacerbation Continue high-dose systemic steroids Symptoms improving Physical therapy Follow for improvement Uterine infection Uterine mass Uterine masses of concern, including cervical cancer or endometrial cancer or other Doxycycline Gynecology following Further workup by gynecology including ultrasound at this time Follow CBC Hypertension Continue baseline treatment Follow blood pressures Adjust treatments as needed Hyperlipidemia Continue present treatment Follow as an outpatient Mild dementia Supportive care Hypothyroidism Continue baseline treatments Follow as an outpatient DVT prophylaxis Lovenox Problem Qualifiers (1) Rhabdomyolysis: Qualified Codes: T79.6XXA - Traumatic ischemia of muscle, initial encounter (2) Back pain: Qualified Codes: M54.5 - Low back pain; G89.29 - Other chronic pain Geo Bravo MD Mar 19, 2018 11:56
[2018-03-19] MEDS: ENOXAPARIN SODIUM 40 MG/0.4 ML SYRINGE SQ SCH (14:50)
[2018-03-19 18:56] LABS: CA 125 78.1 U/ML (0.0-30.2); CA 19-9 36.6 U/ML (0.0-35.0)
[2018-03-19 19:17] LABS: CARCINOEMBRYONIC ANTIGEN 1.3 NG/ML (0.2-5.0)
[2018-03-19] MEDS: DONEPEZIL HCL 5 MG TAB PO SCH (21:02)
[2018-03-19] MEDS: ATORVASTATIN 20 MG TAB PO SCH (21:02)
[2018-03-19] MEDS: traMADol HCL 50 MG TAB PO PRN (22:55)
[2018-03-20] VITALS (8 sets, daily range): BP systolic 113–195; BP diastolic 56–97; PULSE 52–80; RESP 16–19; TEMP 97.3–98.5; O2SAT 95–100
--- NOTE | 2018-03-20 00:07 | RADRPT ---
EXAM DATE/TIME: 03/19/2018 17:40 [facility] COMPARISON: CT ABDOMEN & PELVIS W CONTRAST, March 17, 2018, 15:47. INDICATIONS : Vaginal bleeding. MEDICAL HISTORY : Osteoporosis. Hypertension. Hypothyroidism. Mild dimentia. SURGICAL HISTORY : Appendectomy. Cholecystectomy. ENCOUNTER: Initial ACUITY: 1 week PAIN SCORE: 3/10 LOCATION: Bilateral pelvis MEASUREMENTS: UTERUS: cm ENDOMETRIAL STRIPE: RIGHT OVARY: cm Non visualized LEFT OVARY: cm Non visualized FINDINGS: UTERUS: The uterus is markedly abnormal. It is enlarged and the endometrial canal is filled with mixed echoge nicity material including fluid. Limited evaluation of the lower uterine segment and cervical region secondary to air. No discernible mass. RIGHT OVARY: The ovary is not visualized. No adnexal mass or fluid collection is seen. LEFT OVARY: The ovary is not visualized. No adnexal mass or fluid collection is seen. MISCELLANEOUS: No free fluid. CONCLUSION: Markedly abnormal uterus which is enlarged and contains heterogeneous material including fluid within the endometrial canal. I'm not able to clearly identify a mass, however, the lower uterine segment a nd cervix are poorly visualized on this study. Consider MRI of the pelvis with contrast as follow. Ne ither ovary visualized. Sotero Fernando Jr., MD on March 20, 2018 at 0:02 Board Certified Radiologist. This report was verified electronically.
[2018-03-20] MEDS: methylPREDNISolone SOD SUCC 40 MG/1 ML VIAL IV PUSH SCH ×4 (02:16→19:57)
[2018-03-20 04:32] LABS: AUTOMATED NEUTROPHIL # 14.5 TH/MM3 (1.8-7.7); BASOPHIL % 0.1 % (0.0-2.0); HEMATOCRIT 33.6 % (35.0-46.0); HEMOGLOBIN 11.4 GM/DL (11.6-15.3); LYMPH % 7.4 % (9.0-44.0); LYMPHOCYTE # 1.2 TH/MM3 (1.0-4.8); MEAN CELL VOLUME 91.6 FL (80.0-100.0); MEAN CORPUSCULAR HGB CONC 33.9 % (32.0-36.0); MEAN PLATELET VOLUME 9.1 FL (7.0-11.0); MONO % 5.8 % (0.0-8.0); NEUT % 86.7 % (16.0-70.0); PLATELET COUNT 225 TH/MM3 (150-450); RED BLOOD COUNT 3.67 MIL/MM3 (4.00-5.30); RED CELL DISTRIBUTION WIDTH 13.4 % (11.6-17.2); WHITE BLOOD COUNT 16.8 TH/MM3 (4.0-11.0)
[2018-03-20 04:39] LABS: ALBUMIN 1.8 GM/DL (3.4-5.0); ALT (GPT) 53 U/L (10-53); AST (GOT) 49 U/L (15-37); BICARBONATE 28.4 MEQ/L (21.0-32.0); BLOOD UREA NITROGEN 18 MG/DL (7-18); CALCIUM 9.5 MG/DL (8.5-10.1); CHLORIDE 108 MEQ/L (98-107); CREATININE 0.58 MG/DL (0.50-1.00); GLOMERULAR FILTRATION RATE 102 ML/MIN (>89); GLUCOSE,RANDOM 131 MG/DL (74-106); MAGNESIUM 1.7 MG/DL (1.5-2.5); SODIUM (NA) 144 MEQ/L (136-145)
[2018-03-20 04:41] LABS: ALKALINE PHOSPHATASE 148 U/L (45-117); TOTAL BILIRUBIN ADULT 0.2 MG/DL (0.2-1.0); TOTAL PROTEIN 5.1 GM/DL (6.4-8.2)
[2018-03-20 05:32] LABS: LYMPHOCYTES 3 % (9-44); MONOCYTES 5 % (0-8); MYELOCYTES 1 % (0-0); NEUTROPHIL # MANUAL DIFF 15.5 TH/MM3 (1.8-7.7); POLYS (SEG NEUTROPHILS) 91 % (16-70)
[2018-03-20] MEDS: LEVOTHYROXINE SODIUM 112 MCG TAB PO SCH (06:30)
[2018-03-20] MEDS: LEVOTHYROXINE SODIUM 25 MCG TAB PO SCH (06:30)
[2018-03-20] MEDS: DOCUSATE SODIUM 50 MG/SENNA 8.6 MG TAB PO SCH ×2 (08:39→19:51)
[2018-03-20] MEDS: LOSARTAN 50 MG TAB PO SCH (08:39)
[2018-03-20] MEDS: traMADol HCL 50 MG TAB PO PRN (08:40)
[2018-03-20] MEDS: FLUoxetine HCL 20 MG CAP PO SCH ×2 (08:40→19:53)
[2018-03-20] MEDS: HYDROCHLOROTHIAZIDE 25 MG TAB PO SCH (08:40)
[2018-03-20] MEDS: SODIUM CHLORIDE 0.9% FLUSH 10 ML FLUSH IV FLUSH SCH ×2 (08:40→19:55)
[2018-03-20] MEDS: ASPIRIN 81 MG CHEW TAB CHEW SCH (08:40)
[2018-03-20] MEDS ORDERED: POTASSIUM CHLORIDE 20 MEQ CONTROLLED RELEASE TAB PO ONE (10:00)
[2018-03-20] MEDS ORDERED: GLYCERIN ADULT 2 GM SUPP RECTAL PRN (12:00)
[2018-03-20] MEDS: cloNIDine HCL 0.1 MG TAB PO PRN (12:29)
[2018-03-20] MEDS: ENOXAPARIN SODIUM 40 MG/0.4 ML SYRINGE SQ SCH (13:19)
[2018-03-20] MEDS: HYDROmorphone HCL PF 2 MG/ML VIAL IV PUSH PRN (15:08)
--- NOTE | 2018-03-20 15:15 | PD.CONS ---
History & Physical H&P ENGRAVER TIRE MOLD consult follow-up Patient is 72-year-old white female para 2 who has history of vaginal bleeding discharge, abdominal pain, syncope, she was sent from [place] to [facility] [address] scan and ultrasound showed an enlarged uterus filled with fluid and tissue and a large lower uterine segment mass. CA 125 is 78 which is elevated I was called today because the patient passed some blood clots per vagina. I went and examined the patient. Exam-normal external genitalia with some blood noted on the pad and on the vulva which appeared normal;, in the vagina there is a large soft brown tissue mass approximately baseball size this mass essentially fills three fourths of the vagina almost growing to the point of presenting at the introitus. On visualizing with the speculum there is some minimal amount of old blood buildup around and underneath this. And on digital exam I could not get around the soft tissue mass to get back to the cervical os . However because this soft tissue mass is really soft and he can just break off pieces of with the examining hand, that is what I did several small pieces then one large piece that was 7 x 5 cm, this tissue is roach-brown and very fleshy and soft. And apparently is relatively avascular because his whole area did not bleed from this manipulation. 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 Bennett the ENGRAVER TIRE MOLD oncologist, obviously await tissue results, and plan therapy accordingly Glen Shi II, MD Mar 20, 2018 15:15
[2018-03-20] MEDS ORDERED: hydrALAZINE HCL 20 MG/ML VIAL IV PUSH ONE (17:00)
--- NOTE | 2018-03-20 18:18 | HHI.PR ---
Subjective Remarks This morning patient only complained of dizziness. She is not quite aware what is going on with her uterus. I did my best to fill her in without causing her distress. Objective Vitals Vital Signs Date Time Temp Pulse Resp B/P (MAP) Pulse Ox O2 Delivery O2 Flow Rate FiO2 03/20/18 17:51 58 18 113/58 (76) 96 03/20/18 17:27 80 18 181/84 (116) 100 03/20/18 15:38 18 03/20/18 14:37 195/90 (125) 03/20/18 12:00 98.0 52 18 187/97 (127) 98 03/20/18 09:40 18 03/20/18 08:00 97.4 52 18 179/94 (122) 98 03/20/18 04:00 98.5 55 19 182/91 (121) 95 03/20/18 00:00 97.6 57 18 171/92 (118) 95 03/19/18 20:57 97.8 54 20 177/79 (111) 96 I/O 03/19/18 03/19/18 03/19/18 03/20/18 03/20/18 03/20/18 07:00 15:00 23:00 07:00 15:00 23:00 Intake Total 1720 ml 1000 ml Output Total 300 ml Balance -300 ml 1720 ml 1000 ml Intake Oral 720 ml 300 ml IV Total 1000 ml 700 ml Output Urine Total 300 ml # Voids 1 2 2 # Bowel Movements 1 # Sanitary Pads 1 Pads Result Diagram: 03/20/18 0342 03/20/18 0342 Objective Remarks GENERAL: Well-nourished, well-developed patient. SKIN: Warm and dry. HEAD: Normocephalic. EYES: No scleral icterus. No injection or drainage. NECK: Supple, trachea midline. No JVD or lymphadenopathy. CARDIOVASCULAR: Regular rate and rhythm without murmurs, gallops, or rubs. RESPIRATORY: Breath sounds equal bilaterally. No accessory muscle use. GASTROINTESTINAL: Abdomen soft, non-tender, nondistended. EXTREMITIES: No cyanosis, or trace edema NEUROLOGICAL: Awake, alert, and oriented x 3. Non-focal. A/P Problem List: (1) Uterine infection ICD Code: N71.9 - Inflammatory disease of uterus, unspecified Status: Acute (2) Rhabdomyolysis ICD Code: M62.82 - Rhabdomyolysis Status: Acute (3) Back pain ICD Code: M54.9 - Dorsalgia, unspecified Status: Acute Assessment and Plan Uterine mass w/ signs of infection Uterine masses concerning for malignancy Uterine ultrasound shows widespread abnormality, MRI deferred due to today's obtaining of tissue sample Gynecology was able to obtain a tissue sample during manual exam today, sent to pathology Follow pathology for identification Once identification is confirmed consult 3rd grade teacher-onc Continue doxycycline Benign paroxysmal positional vertigo Patient has history of MS which should be considered, however the onset of her symptoms are more consistent with BPPV Recommend continuing IV steroids Patient states she is somewhat improved Will request specific PT therapy (Ade's maneuver) if symptoms persist Hypertension Elevated pressure today into the 190s despite pain management following biopsy Clonidine as needed, hydralazine as needed Continue home meds as baseline Mild dementia By daughter's report, continue supportive care Hypothyroidism Continue home meds DVT prophylaxis Lovenox Problem Qualifiers (1) Rhabdomyolysis: Qualified Codes: T79.6XXA - Traumatic ischemia of muscle, initial encounter (2) Back pain: Qualified Codes: M54.5 - Low back pain; G89.29 - Other chronic pain Russ Bravo MD Mar 20, 2018 18:18
[2018-03-20] MEDS: ATORVASTATIN 20 MG TAB PO SCH (19:51)
[2018-03-20] MEDS: DONEPEZIL HCL 5 MG TAB PO SCH (19:54)
[2018-03-21] VITALS (8 sets, daily range): BP systolic 148–193; BP diastolic 67–93; PULSE 52–96; RESP 16–18; TEMP 97.4–98; O2SAT 96–99
[2018-03-21] MEDS: LEVOTHYROXINE SODIUM 25 MCG TAB PO SCH (04:05)
[2018-03-21] MEDS: methylPREDNISolone SOD SUCC 40 MG/1 ML VIAL IV PUSH SCH ×4 (04:05→19:40)
[2018-03-21] MEDS: LEVOTHYROXINE SODIUM 112 MCG TAB PO SCH (04:05)
[2018-03-21] MEDS: FLUoxetine HCL 20 MG CAP PO SCH ×2 (08:36→19:39)
[2018-03-21] MEDS: DOCUSATE SODIUM 50 MG/SENNA 8.6 MG TAB PO SCH ×2 (08:37→19:39)
[2018-03-21] MEDS: SODIUM CHLORIDE 0.9% FLUSH 10 ML FLUSH IV FLUSH SCH ×2 (08:37→19:40)
[2018-03-21] MEDS: HYDROCHLOROTHIAZIDE 25 MG TAB PO SCH (08:37)
[2018-03-21] MEDS: LOSARTAN 50 MG TAB PO SCH (08:37)
[2018-03-21] MEDS: cloNIDine HCL 0.1 MG TAB PO PRN ×2 (13:30→19:39)
--- NOTE | 2018-03-21 16:02 | HHI.PR ---
Subjective Remarks 72-year-old female with vertigo and uterine mass. She had a manual biopsy of a growth in her vaginal wall yesterday by gynecology, she had pain following this procedure. Today her pain is improved. She feels less vertigo and on her previous 2 days here. Objective Vitals Vital Signs Date Time Temp Pulse Resp B/P (MAP) Pulse Ox O2 Delivery O2 Flow Rate FiO2 03/21/18 13:00 97.8 56 16 161/79 (106) 96 03/21/18 09:30 56 160/76 (104) 03/21/18 08:30 97.4 52 16 190/83 (118) 98 03/21/18 04:00 98.0 64 16 150/86 (107) 96 03/21/18 00:00 97.5 96 16 150/75 (100) 97 03/20/18 20:00 97.3 55 16 119/56 (77) 97 03/20/18 17:51 58 18 113/58 (76) 96 03/20/18 17:27 80 18 181/84 (116) 100 I/O 03/20/18 03/20/18 03/20/18 03/21/18 03/21/18 03/21/18 07:00 15:00 23:00 07:00 15:00 23:00 Intake Total 1000 ml 1080 ml 240 ml Balance 1000 ml 1080 ml 240 ml Intake Oral 300 ml 1080 ml 240 ml IV Total 700 ml # Voids 2 3 2 # Bowel Movements 1 # Sanitary Pads 1 Pads 2 Pads 1 Pads 3 Pads Result Diagram: 03/20/18 0342 03/20/18 0342 Objective Remarks GENERAL: Well-nourished, well-developed patient. SKIN: Warm and dry. HEAD: Normocephalic. EYES: No scleral icterus. No injection or drainage. NECK: Supple, trachea midline. No JVD or lymphadenopathy. CARDIOVASCULAR: Regular rate and rhythm without murmurs, gallops, or rubs. RESPIRATORY: Breath sounds equal bilaterally. No accessory muscle use. GASTROINTESTINAL: Abdomen soft, non-tender, nondistended. EXTREMITIES: No cyanosis, or trace edema NEUROLOGICAL: Awake, alert, and oriented x 3. Non-focal. A/P Problem List: (1) Uterine infection ICD Code: N71.9 - Inflammatory disease of uterus, unspecified Status: Acute (2) Rhabdomyolysis ICD Code: M62.82 - Rhabdomyolysis Status: Acute (3) Back pain ICD Code: M54.9 - Dorsalgia, unspecified Status: Acute Assessment and Plan Uterine mass w/ signs of infection Uterine masses concerning for malignancy Uterine ultrasound shows widespread abnormality, MRI deferred due to today's obtaining of tissue sample Gynecology was able to obtain a tissue sample during manual exam 03/20, pathology results pending Consult retail and promotions coordinator-onc once pathology results are resulted Continue doxycycline Benign paroxysmal positional vertigo Patient has history of MS which should be considered, however the onset of her symptoms are more consistent with BPPV Continue IV steroids Patient states she feels well today, vertigo is minimal Hypertension Clonidine as needed, hydralazine as needed Continue home meds as baseline coverage Mild dementia By daughter's report, continue supportive care Hypothyroidism Continue home meds DVT prophylaxis Lovenox Problem Qualifiers (1) Rhabdomyolysis: Qualified Codes: T79.6XXA - Traumatic ischemia of muscle, initial encounter (2) Back pain: Qualified Codes: M54.5 - Low back pain; G89.29 - Other chronic pain Russ Bravo MD Mar 21, 2018 16:02
[2018-03-21] MEDS: DONEPEZIL HCL 5 MG TAB PO SCH (19:39)
[2018-03-21] MEDS: ATORVASTATIN 20 MG TAB PO SCH (19:39)
[2018-03-21] MEDS: traMADol HCL 50 MG TAB PO PRN (21:34)
[2018-03-21] MEDS ORDERED: hydrALAZINE HCL 20 MG/ML VIAL IV PUSH ONE (21:45)
[2018-03-22] MEDS: methylPREDNISolone SOD SUCC 40 MG/1 ML VIAL IV PUSH SCH ×2 (03:31→09:14)
[2018-03-22] MEDS: LEVOTHYROXINE SODIUM 112 MCG TAB PO SCH (03:32)
[2018-03-22] MEDS: LEVOTHYROXINE SODIUM 25 MCG TAB PO SCH (03:32)
[2018-03-22 04:22] VITALS: BP_SYST 150; BP_SYST 156; BP_DIAS 70; BP_DIAS 86; PULSE 64; RESP 16; TEMP 98; O2SAT 96
[2018-03-22 06:27] LABS: HEMATOCRIT 35.3 % (35.0-46.0); HEMOGLOBIN 11.9 GM/DL (11.6-15.3); MEAN CORPUSCULAR HEMOGLOBIN 30.7 PG (27.0-34.0); MEAN CORPUSCULAR HGB CONC 33.8 % (32.0-36.0); MEAN PLATELET VOLUME 8.7 FL (7.0-11.0); PLATELET COUNT 303 TH/MM3 (150-450); RED BLOOD COUNT 3.88 MIL/MM3 (4.00-5.30); RED CELL DISTRIBUTION WIDTH 13.1 % (11.6-17.2); WHITE BLOOD COUNT 22.9 TH/MM3 (4.0-11.0)
[2018-03-22 06:49] LABS: BICARBONATE 27.6 MEQ/L (21.0-32.0); CALCIUM 9.6 MG/DL (8.5-10.1); CREATININE 0.58 MG/DL (0.50-1.00)
[2018-03-22 09:06] VITALS: BP 133/60; PULSE 65; RESP 18; TEMP 97.8; O2SAT 98
[2018-03-22] MEDS: LOSARTAN 50 MG TAB PO SCH (09:14)
[2018-03-22] MEDS: FLUoxetine HCL 20 MG CAP PO SCH ×2 (09:14→21:28)
[2018-03-22] MEDS: HYDROCHLOROTHIAZIDE 25 MG TAB PO SCH (09:14)
[2018-03-22] MEDS: DOCUSATE SODIUM 50 MG/SENNA 8.6 MG TAB PO SCH ×3 (09:15→21:29)
[2018-03-22] MEDS: SODIUM CHLORIDE 0.9% FLUSH 10 ML FLUSH IV FLUSH SCH ×2 (09:15→21:28)
--- NOTE | 2018-03-22 12:20 | HHI.PR ---
Subjective Remarks Patient c/o abdominal cramping and vaginal bleeding. Denies cp/sob Afebrile Denies dizziness Objective Vitals Vital Signs Date Time Temp Pulse Resp B/P (MAP) Pulse Ox O2 Delivery O2 Flow Rate FiO2 03/22/18 09:06 97.8 65 18 133/60 (84) 98 03/22/18 04:22 98.0 64 16 156/70 (98) 96 03/21/18 23:00 98.0 60 16 148/67 (94) 96 03/21/18 20:00 97.5 67 16 193/93 (126) 97 03/21/18 17:45 98.0 54 18 172/84 (113) 99 03/21/18 13:00 97.8 56 16 161/79 (106) 96 I/O 03/21/18 03/21/18 03/21/18 03/22/18 03/22/18 03/22/18 07:00 15:00 23:00 07:00 15:00 23:00 Intake Total 240 ml 1080 ml 120 ml Output Total 50 ml Balance 240 ml 1080 ml 70 ml Intake Oral 240 ml 1080 ml 120 ml Output Urine Total 50 ml # Voids 2 4 4 # Bowel Movements 2 # Sanitary Pads 2 Pads 1 Pads 3 Pads Result Diagram: 03/22/18 0604 03/22/18 0604 Imaging Last Impressions Pelvis Ultrasound 03/19/18 1121 Signed Impressions: Service Date/Time: Monday, March 19, 2018 17:40 - CONCLUSION: Markedly abnormal uterus which is enlarged and contains heterogeneous material including fluid within the endometrial canal. I'm not able to clearly identify a mass, however, the lower uterine segment and cervix are poorly visualized on this study. Consider MRI of the pelvis with contrast as follow. Neither ovary visualized. Sotero Fernando Jr., MD Abdomen/Pelvis CT 03/17/18 1449 Signed Impressions: Service Date/Time: Saturday, March 17, 2018 15:47 - CONCLUSION: Uterus is distended with heterogeneous debris. The appearance would be most consistent with uterine obstruction as associated with endometrial or cervical carcinoma. Mario Goodrich MD Lumbar Spine CT 03/17/18 1004 Signed Impressions: Service Date/Time: Saturday, March 17, 2018 10:39 - CONCLUSION: Extensive degenerative changes radiographically significant spinal stenosis from L2-L4. Mejia Fuentes MD FACR Head CT 03/17/18 1004 Signed Impressions: Service Date/Time: Saturday, March 17, 2018 10:36 - CONCLUSION: 1. Senescent changes with mild periventricular small vessel ischemic white matter demyelination. 2. No acute intracranial abnormality. Jaxon Rivera MD Chest X-Ray 03/17/18 1004 Signed Impressions: Service Date/Time: Saturday, March 17, 2018 10:50 - CONCLUSION: No acute disease. Mejia Fuentes MD FACR Lumbar Spine MRI 03/17/18 0000 Signed Impressions: Service Date/Time: Saturday, March 17, 2018 13:57 - CONCLUSION: 1. Very limited postcontrast images due to motion degradation. No significant abnormal enhancement although evaluation of the conus is not possible. 2. Redemonstration of advanced multilevel degenerative spondylosis of the lumbar spine with multilevel severe spinal canal narrowing most prominently at L4-5 with near-complete effacement of the central canal. 3. Multilevel variable neural foraminal stenosis most prominently on the left at L4-5 and L5-S1. 4. Please see above for detailed description of each level. Jaxon Rivera MD Objective Remarks AAOx3, moderate distress due to pain Clear lungs BL S1S2 RRR, no MRG abdomen soft, moderately tender to palpation of hypogastric region, no rebound tenderness no edema in lower extremities Large clot and active vaginal bleeding Procedures none Medications and IVs Current Medications Medications (Trade) Dose Ordered Sig/Kareem Route Start Time Stop Time Status Last Admin (NS Flush) 2 ml UNSCH PRN IV FLUSH 03/17/18 18:00 (NS Flush) 2 ml BID IV FLUSH 03/17/18 21:00 03/22/18 09:15 (Zofran Inj) 4 mg Q6H PRN IVP 03/17/18 18:00 (Ambien) 5 mg HS PRN PO 03/17/18 18:00 (Narcan Inj) 0.4 mg UNSCH PRN IV PUSH 03/17/18 18:00 (Nargis-Colace) 1 tab BID PO 03/17/18 21:00 03/22/18 09:15 (Milk Of Magnesia Liq) 30 ml Q12H PRN PO 03/17/18 18:00 (Senokot) 17.2 mg Q12H PRN PO 03/17/18 18:00 (Dulcolax Supp) 10 mg DAILY PRN RECTAL 03/17/18 18:00 (Lactulose Liq) 30 ml DAILY PRN PO 03/17/18 18:00 (Ultram) 50 mg Q6H PRN PO 03/17/18 18:00 03/21/18 21:34 (Synthroid) 112 mcg DAILY@0600 PO 03/18/18 06:00 03/22/18 03:32 (Cozaar) 100 mg DAILY PO 03/18/18 09:00 03/22/18 09:14 (Hydrodiuril) 25 mg DAILY PO 03/18/18 09:00 03/22/18 09:14 (Synthroid) 25 mcg DAILY@0600 PO 03/18/18 06:00 03/22/18 03:32 (SoluMEDROL INJ) 40 mg Q6H IV PUSH 03/18/18 20:00 03/22/18 09:14 (Lipitor) 20 mg HS PO 03/18/18 21:00 03/21/18 19:39 (Aricept) 5 mg HS PO 03/18/18 21:00 03/21/18 19:39 (PROzac) 20 mg BID PO 03/18/18 21:00 03/22/18 09:14 (Glycerin Adult Supp) 2 gm BID PRN RECTAL 03/20/18 12:00 (Catapres) 0.1 mg Q6H PRN PO 03/20/18 12:15 03/21/18 19:39 (Dilaudid Pf Inj) 0.5 mg Q4H PRN IV PUSH 03/20/18 15:00 03/20/18 15:08 A/P Problem List: (1) Uterine infection ICD Code: N71.9 - Inflammatory disease of uterus, unspecified Status: Acute (2) Rhabdomyolysis ICD Code: M62.82 - Rhabdomyolysis Status: Acute (3) Back pain ICD Code: M54.9 - Dorsalgia, unspecified Status: Acute (4) Uterine mass ICD Code: N85.9 - Noninflammatory disorder of uterus, unspecified Status: Acute (5) Vaginal bleeding ICD Code: N93.9 - Abnormal uterine and vaginal bleeding, unspecified Assessment and Plan Uterine mass w signs of infection Uterine masses concerning for malignancy with elevated CA-19-9 and CEA 125. Uterine ultrasound shows widespread abnormality, MRI deferred due to today's obtaining of tissue sample Gynecology was able to obtain a tissue sample during manual exam 03/20, pathology results pending 03/22 continue oral doxycycline for presumptive infection as per previous records. Patient with active GI bleeding. Discussed with RN will contact [employer] and will get stat CBC and correlation profile. Benign paroxysmal positional vertigo Patient has history of MS which should be considered, however the onset of her symptoms are more consistent with BPPV Patient states she feels well today, vertigo is minimal 03/22 will start steroid taper. Decrease Solu-Medrol dose to 40 g IV every 12 hours. Hypertension Clonidine as needed, hydralazine as needed Continue home meds as baseline coverage 03/22 blood pressure has been persistently elevated into the 140s up to 190s. Continue as needed antihypertensive medications as above. Continue losartan and HCTZ. Mild dementia By daughter's report, continue supportive care Seems stable. Hypothyroidism On levothyroxine. Continue. Vaginal bleeding Suspect patient is bleeding from mass. Will order stat CBC and monitor hemoglobin trend. Also ordered stat correlation profile. Discussed with RN who will contact [employer] physician. Transfuse as needed for hemoglobin less than 8 with a target of hemoglobin more than 9. DVT prophylaxis As per previous records the patient supposedly on Lovenox, however upon review of active medication list, the patient is not on Lovenox. Discharge Planning Continue to monitor on the medical floor. Pending pathology results, with active vaginal bleeding. Problem Qualifiers (1) Rhabdomyolysis: Qualified Codes: T79.6XXA - Traumatic ischemia of muscle, initial encounter (2) Back pain: Qualified Codes: M54.5 - Low back pain; G89.29 - Other chronic pain Howard Demarco MD Mar 22, 2018 12:20
[2018-03-22] MEDS: traMADol HCL 50 MG TAB PO PRN (12:41)
[2018-03-22 12:58] VITALS: BP 172/80; PULSE 52; RESP 18; TEMP 97.4; O2SAT 96
[2018-03-22] MEDS: HYDROmorphone HCL PF 2 MG/ML VIAL IV PUSH PRN (13:00)
[2018-03-22 13:30] VITALS: BP 152/67
[2018-03-22 14:06] LABS: HEMATOCRIT 36.1 % (35.0-46.0); HEMOGLOBIN 12.1 GM/DL (11.6-15.3); MEAN CELL VOLUME 91.4 FL (80.0-100.0); MEAN CORPUSCULAR HEMOGLOBIN 30.7 PG (27.0-34.0); MEAN CORPUSCULAR HGB CONC 33.6 % (32.0-36.0); MEAN PLATELET VOLUME 8.6 FL (7.0-11.0); PLATELET COUNT 384 TH/MM3 (150-450); RED BLOOD COUNT 3.95 MIL/MM3 (4.00-5.30); RED CELL DISTRIBUTION WIDTH 12.9 % (11.6-17.2); WHITE BLOOD COUNT 31.9 TH/MM3 (4.0-11.0)
[2018-03-22 14:22] LABS: INTERNATIONAL NORMALIZED RATIO 1.1 RATIO; PROTHROMBIN TIME - PATIENT 11.2 SEC (9.8-11.6)
[2018-03-22 16:22] VITALS: BP 131/73; PULSE 57; RESP 18; TEMP 97.8; O2SAT 96
[2018-03-22 20:00] VITALS: BP 151/70; PULSE 59; RESP 16; TEMP 97.8; O2SAT 98
[2018-03-22] MEDS: DONEPEZIL HCL 5 MG TAB PO SCH (21:28)
[2018-03-22] MEDS: ATORVASTATIN 20 MG TAB PO SCH (21:29)
[2018-03-22 22:11] LABS: HEMATOCRIT 36.6 % (35.0-46.0); HEMOGLOBIN 12.1 GM/DL (11.6-15.3); MEAN CELL VOLUME 92.3 FL (80.0-100.0); MEAN CORPUSCULAR HEMOGLOBIN 30.4 PG (27.0-34.0); MEAN PLATELET VOLUME 8.9 FL (7.0-11.0); PLATELET COUNT 377 TH/MM3 (150-450); RED BLOOD COUNT 3.97 MIL/MM3 (4.00-5.30); WHITE BLOOD COUNT 36.9 TH/MM3 (4.0-11.0)
[2018-03-23] VITALS: BP 132/80; PULSE 62; RESP 16; TEMP 97.8; O2SAT 98
[2018-03-23 04:00] VITALS: BP 168/74; PULSE 57; RESP 16; TEMP 97.9; O2SAT 97
[2018-03-23] MEDS: LEVOTHYROXINE SODIUM 25 MCG TAB PO SCH (06:05)
[2018-03-23] MEDS: LEVOTHYROXINE SODIUM 112 MCG TAB PO SCH (06:05)
[2018-03-23 06:34] LABS: ALBUMIN 1.9 GM/DL (3.4-5.0); ALT (GPT) 72 U/L (10-53); AST (GOT) 35 U/L (15-37); BICARBONATE 28.6 MEQ/L (21.0-32.0); BLOOD UREA NITROGEN 24 MG/DL (7-18); CALCIUM 9.4 MG/DL (8.5-10.1); CHLORIDE 107 MEQ/L (98-107); CREATININE 0.61 MG/DL (0.50-1.00); GLOMERULAR FILTRATION RATE 97 ML/MIN (>89); GLUCOSE,RANDOM 80 MG/DL (74-106); SODIUM (NA) 143 MEQ/L (136-145)
[2018-03-23 06:40] LABS: ALKALINE PHOSPHATASE 110 U/L (45-117); TOTAL BILIRUBIN ADULT 0.4 MG/DL (0.2-1.0); TOTAL PROTEIN 4.6 GM/DL (6.4-8.2)
[2018-03-23 06:46] LABS: AUTOMATED NEUTROPHIL # 25.9 TH/MM3 (1.8-7.7); BASOPHIL # 0.1 TH/MM3 (0-0.2); BASOPHIL % 0.4 % (0.0-2.0); EOSINOPHIL % 0.1 % (0.0-4.0); HEMATOCRIT 33.3 % (35.0-46.0); HEMOGLOBIN 11.2 GM/DL (11.6-15.3); LYMPHOCYTE # 4.1 TH/MM3 (1.0-4.8); MEAN CELL VOLUME 92.6 FL (80.0-100.0); MEAN CORPUSCULAR HEMOGLOBIN 31.1 PG (27.0-34.0); MEAN CORPUSCULAR HGB CONC 33.5 % (32.0-36.0); MEAN PLATELET VOLUME 8.7 FL (7.0-11.0); MONO % 4.6 % (0.0-8.0); MONOCYTE # 1.5 TH/MM3 (0-0.9); NEUT % 81.9 % (16.0-70.0); PLATELET COUNT 311 TH/MM3 (150-450); RED BLOOD COUNT 3.59 MIL/MM3 (4.00-5.30); RED CELL DISTRIBUTION WIDTH 12.8 % (11.6-17.2); WHITE BLOOD COUNT 31.6 TH/MM3 (4.0-11.0)
[2018-03-23 08:05] VITALS: BP 163/80; PULSE 62; RESP 16; TEMP 98.4; O2SAT 97
[2018-03-23 08:23] LABS: BANDS 4 % (0-6); LYMPHOCYTES 10 % (9-44); METAMYELOCYTES 1 % (0-1); MONOCYTES 4 % (0-8); MYELOCYTES 1 % (0-0); NEUTROPHIL # MANUAL DIFF 27.2 TH/MM3 (1.8-7.7); POLYS (SEG NEUTROPHILS) 80 % (16-70)
[2018-03-23] MEDS: LOSARTAN 50 MG TAB PO SCH (08:43)
[2018-03-23] MEDS: HYDROCHLOROTHIAZIDE 25 MG TAB PO SCH (08:43)
[2018-03-23] MEDS: FLUoxetine HCL 20 MG CAP PO SCH ×2 (08:43→20:57)
[2018-03-23] MEDS: DOCUSATE SODIUM 50 MG/SENNA 8.6 MG TAB PO SCH ×2 (08:44→21:00)
[2018-03-23] MEDS: SODIUM CHLORIDE 0.9% FLUSH 10 ML FLUSH IV FLUSH SCH ×2 (08:44→20:57)
[2018-03-23] MEDS ORDERED: POTASSIUM CHLORIDE 10 MEQ CONTROLLED RELEASE TAB PO ONE (09:15)
[2018-03-23] MEDS: traMADol HCL 50 MG TAB PO PRN (12:13)
[2018-03-23] MEDS ORDERED: HYDROmorphone HCL PF 0.5 MG/0.5 ML SYRINGE IV PRN (12:15)
[2018-03-23] MEDS: predniSONE 20 MG TAB PO SCH ×2 (12:16→20:54)
[2018-03-23 12:45] VITALS: BP 154/72; PULSE 58; RESP 16; TEMP 97.6; O2SAT 98
--- NOTE | 2018-03-23 15:44 | HHI.PR ---
Subjective Remarks c/o low backl pain 7/10 in intensity. Denies fevers or chills. Patient states she still having vaginal bleeding. Objective Vitals Vital Signs Date Time Temp Pulse Resp B/P (MAP) Pulse Ox O2 Delivery O2 Flow Rate FiO2 03/23/18 12:45 97.6 58 16 154/72 (99) 98 03/23/18 08:05 98.4 62 16 163/80 (107) 97 03/23/18 04:00 97.9 57 16 168/74 (105) 97 03/23/18 00:00 97.8 62 16 132/80 (97) 98 03/22/18 20:00 97.8 59 16 151/70 (97) 98 03/22/18 16:22 97.8 57 18 131/73 (92) 96 I/O 03/22/18 03/22/18 03/22/18 03/23/18 03/23/18 03/23/18 06:59 14:59 22:59 06:59 14:59 22:59 Intake Total 120 ml 560 ml 150 ml Output Total 50 ml Balance 70 ml 560 ml 150 ml Intake Oral 120 ml 560 ml 150 ml Output Urine Total 50 ml # Voids 4 6 2 # Bowel Movements 1 1 Result Diagram: 03/23/18 0527 03/23/18 0527 Imaging Last Impressions Pelvis Ultrasound 03/19/18 1121 Signed Impressions: Service Date/Time: Monday, March 19, 2018 17:40 - CONCLUSION: Markedly abnormal uterus which is enlarged and contains heterogeneous material including fluid within the endometrial canal. I'm not able to clearly identify a mass, however, the lower uterine segment and cervix are poorly visualized on this study. Consider MRI of the pelvis with contrast as follow. Neither ovary visualized. Sotero Fernando Jr., MD Abdomen/Pelvis CT 03/17/18 1449 Signed Impressions: Service Date/Time: Saturday, March 17, 2018 15:47 - CONCLUSION: Uterus is distended with heterogeneous debris. The appearance would be most consistent with uterine obstruction as associated with endometrial or cervical carcinoma. Mario Goodrich MD Lumbar Spine CT 03/17/18 1004 Signed Impressions: Service Date/Time: Saturday, March 17, 2018 10:39 - CONCLUSION: Extensive degenerative changes radiographically significant spinal stenosis from L2-L4. Mejia Fuentes MD FACR Head CT 03/17/18 1004 Signed Impressions: Service Date/Time: Saturday, March 17, 2018 10:36 - CONCLUSION: 1. Senescent changes with mild periventricular small vessel ischemic white matter demyelination. 2. No acute intracranial abnormality. Jaxon Rivera MD Chest X-Ray 03/17/18 1004 Signed Impressions: Service Date/Time: Saturday, March 17, 2018 10:50 - CONCLUSION: No acute disease. Mejia Fuentes MD FACR Lumbar Spine MRI 03/17/18 0000 Signed Impressions: Service Date/Time: Saturday, March 17, 2018 13:57 - CONCLUSION: 1. Very limited postcontrast images due to motion degradation. No significant abnormal enhancement although evaluation of the conus is not possible. 2. Redemonstration of advanced multilevel degenerative spondylosis of the lumbar spine with multilevel severe spinal canal narrowing most prominently at L4-5 with near-complete effacement of the central canal. 3. Multilevel variable neural foraminal stenosis most prominently on the left at L4-5 and L5-S1. 4. Please see above for detailed description of each level. Jaxon Rivera MD Objective Remarks AAOx3, moderate distress due to pain Clear lungs BL S1S2 RRR, no MRG abdomen soft, moderately tender to palpation of hypogastric region, no rebound tenderness no edema in lower extremities + vaginal bleeding cranial nerves II through XII appear to be normal. Muscle strength is 5/5 in all extremities. Intact sensation in all extremities. Procedures none Medications and IVs Current Medications Medications (Trade) Dose Ordered Sig/Kareem Route Start Time Stop Time Status Last Admin (NS Flush) 2 ml UNSCH PRN IV FLUSH 03/17/18 18:00 (NS Flush) 2 ml BID IV FLUSH 03/17/18 21:00 03/23/18 08:44 (Zofran Inj) 4 mg Q6H PRN IVP 03/17/18 18:00 (Ambien) 5 mg HS PRN PO 03/17/18 18:00 03/22/18 21:32 (Narcan Inj) 0.4 mg UNSCH PRN IV PUSH 03/17/18 18:00 (Nargis-Colace) 1 tab BID PO 03/17/18 21:00 03/22/18 09:15 (Milk Of Magnesia Liq) 30 ml Q12H PRN PO 03/17/18 18:00 (Senokot) 17.2 mg Q12H PRN PO 03/17/18 18:00 (Dulcolax Supp) 10 mg DAILY PRN RECTAL 03/17/18 18:00 (Lactulose Liq) 30 ml DAILY PRN PO 03/17/18 18:00 (Ultram) 50 mg Q6H PRN PO 03/17/18 18:00 03/23/18 12:13 (Synthroid) 112 mcg DAILY@0600 PO 03/18/18 06:00 03/23/18 06:05 (Cozaar) 100 mg DAILY PO 03/18/18 09:00 03/23/18 08:43 (Hydrodiuril) 25 mg DAILY PO 03/18/18 09:00 03/23/18 08:43 (Synthroid) 25 mcg DAILY@0600 PO 03/18/18 06:00 03/23/18 06:05 (Lipitor) 20 mg HS PO 03/18/18 21:00 03/22/18 21:29 (Aricept) 5 mg HS PO 03/18/18 21:00 03/22/18 21:28 (PROzac) 20 mg BID PO 03/18/18 21:00 03/23/18 08:43 (Glycerin Adult Supp) 2 gm BID PRN RECTAL 03/20/18 12:00 (Catapres) 0.1 mg Q6H PRN PO 03/20/18 12:15 03/21/18 19:39 (Deltasone) 20 mg BID PO 03/23/18 09:15 03/23/18 12:16 (Dilaudid Pf Inj) 0.5 mg Q4H PRN IV 03/23/18 12:15 A/P Problem List: (1) Uterine infection ICD Code: N71.9 - Inflammatory disease of uterus, unspecified Status: Acute (2) Rhabdomyolysis ICD Code: M62.82 - Rhabdomyolysis Status: Acute (3) Back pain ICD Code: M54.9 - Dorsalgia, unspecified Status: Acute (4) Uterine mass ICD Code: N85.9 - Noninflammatory disorder of uterus, unspecified Status: Acute (5) Vaginal bleeding ICD Code: N93.9 - Abnormal uterine and vaginal bleeding, unspecified (6) Leukocytosis ICD Code: D72.829 - Elevated white blood cell count, unspecified Plan: Patient presented with leukocytosis of 17.9 and bandemia. Patient met sepsis criteria on admission with leukocytosis, bandemia and heart rate more than 90. The patient was started on doxycycline. Continue. Leukocytosis trended up to 30 6.9K, however patient was placed on IV steroids. WBC trending down, 30 1.6K today. Continue to monitor CBC with differential. (7) Sepsis ICD Code: A41.9 - Sepsis, unspecified organism Plan: Suspected uterine infection on admission -as per ED documentation the patient had a large amount of purulent drainage in the vaginal vault with an enlarged uterus. Continue doxycycline. (8) Central stenosis of spinal canal ICD Code: M48.00 - Spinal stenosis, site unspecified Assessment and Plan Uterine mass w signs of infection Uterine masses concerning for malignancy with elevated CA-19-9 and CEA 125. Uterine ultrasound shows widespread abnormality, MRI deferred due to today's obtaining of tissue sample Gynecology was able to obtain a tissue sample during manual exam 03/20, pathology results pending 03/22 continue oral doxycycline for presumptive infection as per previous records. Patient with active GI bleeding. Discussed with RN will contact [employer] and will get stat CBC and c anticoagulate and profile. 03/23 awaiting [facility] [facility]/oncology recommendations. Monitor H&H every 12 hours. Awaiting pathology results. Benign paroxysmal positional vertigo Patient has history of MS which should be considered, however the onset of her symptoms are more consistent with BPPV Patient states she feels well today, vertigo is minimal 03/23 DC IV Solu-Medrol and start the patient on prednisone taper. Dizziness resolved. Hypertension Clonidine as needed, hydralazine as needed Continue home meds as baseline coverage 03/22 blood pressure has been persistently elevated into the 140s up to 190s. Continue as needed antihypertensive medications as above. Continue losartan and HCTZ. 03/23 blood pressure severely elevated into the 170 systolic. Continue losartan and hydrochlorothiazide. Add amlodipine 5 mg p.o. daily. Mild dementia By daughter's report, continue supportive care Seems stable. Hypothyroidism On levothyroxine. Continue. Vaginal bleeding Coagulation profile normal. Hemoglobin dropped from 12.1-11.2. Continue to monitor CBC Transfuse as needed for hemoglobin less than 8 with a target of hemoglobin more than 9. Low back pain/spinal canal stenosis. Patient had imaging of the lumbar spine including lumbar spine CT which showed extensive degenerative changes radiographically, significant spinal stenosis from L2 through L4. MRI of the lumbar spine showed advanced multilevel degenerative spondylosis of the lumbar spine with multilevel severe spinal canal narrowing most prominently at L4-5 with near complete effacement of the central canal. Multilevel variable neural foraminal stenosis most prominent on the left at L4-5 and L5-S1. Patient started on IV Dilaudid for pain control. I will place on oral Bigelow and IV morphine for breakthrough pain. Consult neurosurgery. DVT prophylaxis As per previous records the patient supposedly on Lovenox, however upon review of active medication list, the patient is not on Lovenox. Discharge Planning Continue to monitor on the medical floor. Pending pathology results, with active vaginal bleeding. Problem Qualifiers (1) Rhabdomyolysis: Qualified Codes: T79.6XXA - Traumatic ischemia of muscle, initial encounter (2) Back pain: Qualified Codes: M54.5 - Low back pain; G89.29 - Other chronic pain (3) Leukocytosis: Qualified Codes: D72.829 - Elevated white blood cell count, unspecified (4) Sepsis: Qualified Codes: A41.9 - Sepsis, unspecified organism Howard Demarco MD Mar 23, 2018 15:44
[2018-03-23] MEDS ORDERED: ACETAMINOPHEN/HYDROcodone 325 MG/5 MG TAB PO PRN (15:45)
[2018-03-23] MEDS ORDERED: amLODIPine BESYLATE 5 MG TAB PO ONE (15:45)
[2018-03-23] MEDS ORDERED: MORPHINE SULFATE 2 MG/ML SYRINGE IV PUSH PRN (15:45)
[2018-03-23 16:30] VITALS: BP 154/80; PULSE 74; RESP 18; TEMP 98.7; O2SAT 96
[2018-03-23] MEDS: ACETAMINOPHEN/HYDROcodone 325 MG/5 MG TAB PO PRN ×2 (16:36→20:54)
--- NOTE | 2018-03-23 16:58 | PD.CONS ---
History of Present Illness Service [employer]/ONC Consult Requested By Dr. You Reason for Consult adenocarcinoma cervix vs. endometrial Primary Care Physician Yaron Salazar M.D. Diagnoses: (1) Vaginal bleeding (2) Uterine mass History of Present Illness This is a 72 year old female who came to ER with a 7 day history of vaginal bleeding and abdominal pain. She tells me she had a fall and that is when the vaginal bleeding started. 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 She states she was having some constipation and difficulty with urination that start over the past few days but that has subsided. I explained to patient that when someone presents with vaginal bleeding we need for figure out if it is coming from cervix vs. uterus because they are not treated the same. As of this time we do not have final pathology from recent tissue send to pathology during Dr. Shi's exam. Imaging obtained shown a uterus that has fluid and debris. Dr. Shi describes a (during his exam ) mass from uterus or cervix. No other abnormalities were detected per CT scan. Review of Systems Gastrointestinal: COMPLAINS OF: Constipation Genitourinary: COMPLAINS OF: Abnormal vaginal bleeding, Vaginal discharge Musculoskeletal: COMPLAINS OF: Back pain Past Family Social History Allergies: Coded Allergies: codeine (Unverified Allergy, Mild, 03/14/18) penicillin G (Unverified Allergy, Mild, 03/14/18) Past Surgical History HTN hypothyroid hyperlipidemia Reported Medications per EMR Active Ordered Medications Current Medications Sodium Chloride 1,000 ml @ 999 mls/hr BOLUS ONCE IV Last administered on 03/17at 10:45; Start 03/17/18 at 10:15; Stop 03/17/18 at 11:15; Status DC Potassium Chloride/Sodium Chloride 1,000 ml @ 250 mls/hr Q4H ONCE IV Last administered on 03/17/18at 14:06; Start 03/17/18 at 12:45; Stop 03/17/18 at 16:44 ; Status DC Sodium Chloride 500 ml @ 500 mls/hr BOLUS ONCE IV Last administered on at 14:05; Start 03/17/18 at 13:15; Stop 03/17/18 at 14:14; Status DC Gadodiamide (Omniscan Pf Inj) 13 ml STK-MED ONCE IVCONTRAST Last administered on 03/17/18at 14:25; Start 03/17/18 at 14:25; Stop 03/17/18 at 14:37; Status DC Ondansetron HCl (Zofran Inj) 4 mg ONCE ONCE IV PUSH Last administered on at 15:02; Start 03/17/18 at 15:00; Stop 03/17/18 at 15:01; Status DC Morphine Sulfate (Morphine Inj) 6 mg ONCE ONCE IV PUSH Last administered on at 15:01; Start 03/17/18 at 15:00; Stop 03/17/18 at 15:01; Status DC Iohexol (Omnipaque 350 Inj) 75 ml STK-MED ONCE IVCONTRAST Last administered on 03/17/18at 15:59; Start 03/17/18 at 15:59; Stop 03/17/18 at 16:00; Status DC Doxycycline Hyclate (Vibramycin) 100 mg ONCE ONCE PO Last administered on 03/17at 18:01; Start 03/17/18 at 16:30; Stop 03/17/18 at 16:31; Status DC Metronidazole (Flagyl) 500 mg ONCE ONCE PO Last administered on 03/17/18at 18: 01; Start 03/17/18 at 16:30; Stop 03/17/18 at 16:31; Status DC Lactated Ringer's 1,000 ml @ 100 mls/hr Q10H IV Last administered on at 22:50; Start 03/17/18 at 18:00; Stop 03/20/18 at 09:47; Status DC Sodium Chloride (NS Flush) 2 ml UNSCH PRN IV FLUSH FLUSH AFTER USING IV ACCESS ; Start 03/17/18 at 18:00 Sodium Chloride (NS Flush) 2 ml BID IV FLUSH Last administered on 03/23/18at 08: 44; Start 03/17/18 at 21:00 Ondansetron HCl (Zofran Inj) 4 mg Q6H PRN IVP NAUSEA OR VOMITING; Start at 18:00 Zolpidem Tartrate (Ambien) 5 mg HS PRN PO INSOMNIA Last administered on at 21:32; Start 03/17/18 at 18:00 Naloxone HCl (Narcan Inj) 0.4 mg UNSCH PRN IV PUSH SEE LABEL COMMENTS; Start at 18:00 Senna/Docusate Sodium (Nargis-Colace) 1 tab BID PO Last administered on at 09:15; Start 03/17/18 at 21:00 Magnesium Hydroxide (Milk Of Magnesia Liq) 30 ml Q12H PRN PO Mild constipation ; Start 03/17/18 at 18:00 Sennosides (Senokot) 17.2 mg Q12H PRN PO Moderate constipation; Start 03/17/18 at 18:00 Bisacodyl (Dulcolax Supp) 10 mg DAILY PRN RECTAL SEVERE CONSITIPATION; Start at 18:00 Lactulose (Lactulose Liq) 30 ml DAILY PRN PO SEVERE CONSITIPATION; Start at 18:00 Tramadol HCl (Ultram) 50 mg Q6H PRN PO PAIN Last administered on 03/23/18at 12: 13; Start 03/17/18 at 18:00; Stop 03/23/18 at 15:45; Status DC Levothyroxine Sodium (Synthroid) 112 mcg DAILY@0600 PO Last administered on at 06:05; Start 03/18/18 at 06:00 Losartan Potassium (Cozaar) 100 mg DAILY PO Last administered on 03/23/18at 08: 43; Start 03/18/18 at 09:00 Hydrochlorothiazide (Hydrodiuril) 25 mg DAILY PO Last administered on at 08:43; Start 03/18/18 at 09:00 Levothyroxine Sodium (Synthroid) 25 mcg DAILY@0600 PO Last administered on 03/23at 06:05; Start 03/18/18 at 06:00 Acetaminophen (Tylenol) 650 mg ONCE ONCE PO Last administered on 03/17/18at 19: 17; Start 03/17/18 at 19:15; Stop 03/17/18 at 19:16; Status DC Potassium Chloride (KCl) 30 meq ONCE ONCE PO Last administered on 03/18/18at 09 :30; Start 03/18/18 at 09:00; Stop 03/18/18 at 09:02; Status DC Methylprednisolone Sodium Succinate (SoluMEDROL INJ) 125 mg ONCE ONCE IV PUSH Last administered on 03/18/18 15:32; Start 03/18/18 at 14:30; Stop 03/18/18 at 14:32; Status DC Methylprednisolone Sodium Succinate (SoluMEDROL INJ) 40 mg Q6H IV PUSH Last administered on 03/22/18 09:14; Start 03/18/18 at 20:00; Stop 03/22/18 at 12:45 ; Status DC Aspirin (Aspirin Chew) 81 mg DAILY CHEW Last administered on 03/20/18 08:40; Start 03/19/18 at 09:00; Stop 03/20/18 at 14:55; Status DC Atorvastatin Calcium (Lipitor) 20 mg HS PO Last administered on 03/22/18 21:29 ; Start 03/18/18 at 21:00 Donepezil HCl (Aricept) 5 mg HS PO Last administered on 03/22/18 21:28; Start 03/18/18 at 21:00 Fluoxetine HCl (PROzac) 20 mg BID PO Last administered on 03/23/18 08:43; Start 03/18/18 at 21:00 Enoxaparin Sodium (Lovenox Inj) 40 mg Q24H SQ Last administered on 03/20/18 13 :19; Start 03/18/18 at 14:45; Stop 03/20/18 at 14:55; Status DC Potassium Chloride (KCl) 20 meq ONCE ONCE PO Last administered on 03/20/18at 10 :46; Start 03/20/18 at 10:00; Stop 03/20/18 at 10:01; Status DC Glycerin (Glycerin Adult Supp) 2 gm BID PRN RECTAL MODERATE CONSTIPATION; Start 03/20/18 at 12:00 Clonidine (Catapres) 0.1 mg Q6H PRN PO SBP > 160 Last administered on 19:39; Start 03/20/18 at 12:15 Hydromorphone HCl (Dilaudid Pf Inj) 0.5 mg Q4H PRN IV PUSH PAIN SCALE 4 TO 10 Last administered on 03/22/18 13:00; Start 03/20/18 at 15:00; Stop 03/23/18 at 12:01; Status DC Hydralazine HCl (Apresoline Inj) 20 mg ONCE ONCE IV PUSH Last administered on 4/21/18at 17:27; Start 03/20/18 at 17:00; Stop 03/20/18 at 17:02; Status DC Hydralazine HCl (Apresoline Inj) 10 mg ONCE ONCE IV PUSH Last administered on 03/21/18at 22:03; Start 03/21/18 at 21:45; Stop 03/21/18 at 21:52; Status DC Prednisone (Deltasone) 20 mg BID PO Last administered on 03/23/18at 12:16; Start 03/23/18 at 09:15 Potassium Chloride (KCl) 30 meq ONCE ONCE PO Last administered on 03/23/18at 12 :12; Start 03/23/18 at 09:15; Stop 03/23/18 at 09:16; Status DC Hydromorphone HCl (Dilaudid Pf Inj) 0.5 mg Q4H PRN IV PAIN 4-10; Start at 12:15; Stop 03/23/18 at 15:45; Status DC Amlodipine Besylate (Norvasc) 5 mg ONCE ONCE PO ; Start 03/23/18 at 15:45; Stop 03/23/18 at 15:47; Status DC Amlodipine Besylate (Norvasc) 5 mg DAILY PO ; Start 03/24/18 at 09:00 Acetaminophen/ Hydrocodone Bitart ([place] 5-325 Mg) 1 tab Q4H PRN PO PAIN SCALE 1 TO 4; Start 03/23/18 at 15:45 Acetaminophen/ Hydrocodone Bitart ([place] 5-325 Mg) 2 tab Q4H PRN PO PAIN SCALE 5 TO 10; Start 03/23/18 at 15:45 Morphine Sulfate (Morphine Inj) 2 mg Q3H PRN IV PUSH BREAKTHROUGH PAIN; Start 03/23/18 at 15:45 Family History breast CA: Mom Social History denies alcohol, tobacco or illicit drugs Physical Exam Vital Signs Vital Signs Date Time Temp Pulse Resp B/P (MAP) Pulse Ox O2 Delivery O2 Flow Rate FiO2 03/23/18 16:30 98.7 74 18 154/80 (104) 96 03/23/18 12:45 97.6 58 16 154/72 (99) 98 03/23/18 08:05 98.4 62 16 163/80 (107) 97 03/23/18 04:00 97.9 57 16 168/74 (105) 97 03/23/18 00:00 97.8 62 16 132/80 (97) 98 03/22/18 20:00 97.8 59 16 151/70 (97) 98 Physical Exam GENERAL: This is a well-nourished, well-developed patient, in no apparent distress. SKIN: No rashes, ecchymoses or lesions. Cool and dry. HEAD: Atraumatic. Normocephalic. No temporal or scalp tenderness. EYES: Pupils equal round and reactive. Extraocular motions intact. No scleral icterus. No injection or drainage. CARDIOVASCULAR: Regular rate and rhythm without murmurs, gallops, or rubs. RESPIRATORY: Clear to auscultation. Breath sounds equal bilaterally. No wheezes , rales, or rhonchi. MUSCULOSKELETAL: Extremities without clubbing, cyanosis. mild edema to LLE/ foot. negative Josiah's bilat NEUROLOGICAL: Awake and alert. Motor and sensory grossly within normal limits. Normal speech. Laboratory Laboratory Tests Test 03/22/18 20:32 03/23/18 05:27 White Blood Count 36.9 31.6 Red Blood Count 3.97 3.59 Hemoglobin 12.1 11.2 Hematocrit 36.6 33.3 Mean Corpuscular Volume 92.3 92.6 Mean Corpuscular Hemoglobin 30.4 31.1 Mean Corpuscular Hemoglobin Concent 33.0 33.5 Red Cell Distribution Width 13.0 12.8 Platelet Count 377 311 Mean Platelet Volume 8.9 8.7 Neutrophils (%) (Auto) 81.9 Lymphocytes (%) (Auto) 13.0 Monocytes (%) (Auto) 4.6 Eosinophils (%) (Auto) 0.1 Basophils (%) (Auto) 0.4 Neutrophils # (Auto) 25.9 Lymphocytes # (Auto) 4.1 Monocytes # (Auto) 1.5 Eosinophils # (Auto) 0.0 Basophils # (Auto) 0.1 CBC Comment AUTO DIFF Differential Total Cells Counted 100 Neutrophils % (Manual) 80 Band Neutrophils % 4 Lymphocytes % 10 Monocytes % 4 Neutrophils # (Manual) 27.2 Metamyelocytes 1 Myelocytes 1 Differential Comment FINAL DIFF MANUAL Platelet Estimate NORMAL Platelet Morphology Comment NORMAL Red Cell Morphology Comment NORMAL Blood Urea Nitrogen 24 Creatinine 0.61 Random Glucose 80 Total Protein 4.6 Albumin 1.9 Calcium Level 9.4 Alkaline Phosphatase 110 Aspartate Amino Transf (AST/SGOT) 35 Alanine Aminotransferase (ALT/SGPT) 72 Total Bilirubin 0.4 Sodium Level 143 Potassium Level 3.5 Chloride Level 107 Carbon Dioxide Level 28.6 Anion Gap 7 Estimat Glomerular Filtration Rate 97 Date/Time Source Procedure Growth Status 03/17/18 13:30 Urine Catheterized Urine Urine Culture - Final NO GROWTH IN 48 HOURS. Complete 03/17/18 15:00 Wound Groin Gram Stain - Final Complete 03/17/18 15:00 Wound Culture - Final Escherichia Coli Complete Result Diagram: 03/23/1827 03/23/18526 Imaging Last Impressions Pelvis Ultrasound 03/19/18 1121 Signed Impressions: Service Date/Time: Monday, March 19, 2018 17:40 - CONCLUSION: Markedly abnormal uterus which is enlarged and contains heterogeneous material including fluid within the endometrial canal. I'm not able to clearly identify a mass, however, the lower uterine segment and cervix are poorly visualized on this study. Consider MRI of the pelvis with contrast as follow. Neither ovary visualized. Sotero Fernando Jr., MD Abdomen/Pelvis CT 03/17/18 1449 Signed Impressions: Service Date/Time: Saturday, March 17, 2018 15:47 - CONCLUSION: Uterus is distended with heterogeneous debris. The appearance would be most consistent with uterine obstruction as associated with endometrial or cervical carcinoma. Mario Goodrich MD Lumbar Spine CT 03/17/18 1004 Signed Impressions: Service Date/Time: Saturday, March 17, 2018 10:39 - CONCLUSION: Extensive degenerative changes radiographically significant spinal stenosis from L2-L4. Mejia Fuentes MD FACR Head CT 03/17/18 1004 Signed Impressions: Service Date/Time: Saturday, March 17, 2018 10:36 - CONCLUSION: 1. Senescent changes with mild periventricular small vessel ischemic white matter demyelination. 2. No acute intracranial abnormality. Jaxon Rivera MD Chest X-Ray 03/17/18 1004 Signed Impressions: Service Date/Time: Saturday, March 17, 2018 10:50 - CONCLUSION: No acute disease. Mejia Fuentes MD FACR Lumbar Spine MRI 03/17/18 0000 Signed Impressions: Service Date/Time: Saturday, March 17, 2018 13:57 - CONCLUSION: 1. Very limited postcontrast images due to motion degradation. No significant abnormal enhancement although evaluation of the conus is not possible. 2. Redemonstration of advanced multilevel degenerative spondylosis of the lumbar spine with multilevel severe spinal canal narrowing most prominently at L4-5 with near-complete effacement of the central canal. 3. Multilevel variable neural foraminal stenosis most prominently on the left at L4-5 and L5-S1. 4. Please see above for detailed description of each level. Jaxon Rivera MD Assessment and Plan Problem List: (1) Vaginal bleeding ICD Codes: N93.9 - Abnormal uterine and vaginal bleeding, unspecified Status: Acute (2) Uterine mass ICD Codes: N85.9 - Noninflammatory disorder of uterus, unspecified Status: Acute Plan: uterine vs. cervical mass pathology pending plan of treatment based on pathology surgery vs. treatment Discussed with Dr. Bennett and he is considering EUA D&C bx, cycto and procto. for . Kathy Dominique Mar 23, 2018 16:58
--- NOTE | 2018-03-23 18:29 | MB ---
cc: Barbei Bennett MD,Judie Shi,Glen Bravo,Yaron Kebede MD, MD,Howard ARCE DATE: 03/23/2018 REQUESTING PHYSICIANS: Dr. Judie Moore and Dr. Glen Shi. REASON FOR CONSULTATION: Postmenopausal bleeding; uterine ,cervical and vaginal mass-like abnormalities; fluid in the endometrial cavity. REASON FOR ADMISSION: 1. Dizziness, fall, loss of consciousness at home. 2. Ongoing evaluation for neuromuscular disorder. HISTORY OF PRESENT ILLNESS: This patient seen. Her findings are reviewed. Radiology images are viewed. She is counseled by me and examined by me in conjunction with our nurse practitioner (Kathy Dominique). I agree with the findings, assessment and plan of care. This is a 72-year-old female who suddenly went very weak, passed out at home, apparently was unconscious for a while and unable to get to a phone for many hours to call for help. She was able to finally get help. She states that she had to crawl to her phone. She did not have the strength to get up or to stand up. Prior to this, she noted some progressive weakness over recent days to a couple of weeks, but got quite profound and then suddenly the episode where she could no longer stand. She has a history that suggests she may have a neuromuscular disorder, possibly multiple sclerosis, perhaps some relapsing remitting variant. Nevertheless, ongoing evaluation is underway to try to clarify these issues. Also, she reports recently only in the last 7 days, she has had postmenopausal bleeding. She denies any bleeding, spotting or blood tinged discharge prior to that time. Imaging shows a markedly enlarged uterus. The uterine wall is thinned out as there is fluid and solid appearing material within the endometrial cavity, dilating the uterus at the lower uterine segment and cervix, it is prominent with a mass-like effect. Dr. 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 On pelvic exam, his findings were quite abnormal in that the vagina was filled with polypoid mass that had the appearance of tumor that extended almost to the introitus as per his description. He tried to palpate the cervix and could not clearly delineate any normal cervix such that the origin of this abnormality remains uncertain as to vaginal, cervical or uterine in origin, less likely other pelvic structures with growth into the central pelvis. Dr. Shi was able to obtain tissue as the tissue was friable and segments of the tissue was removed and sent to pathology. At that time, there was no active bleeding, suggesting a possibility of some necrosis. Pathology report is pending. She reports that she has had intermittent bleeding, but this had been going on for approximately 1 week and accompanying the bleeding, she describes pain which is in her lower back, lower mid abdomen and pelvis, not otherwise specified. PAST MEDICAL HISTORY: Due for hypothyroidism, elevated lipids, hypertension, osteoarthritis, neurological or neuromuscular disorder, and medical record suggests mild dementia. PAST SURGICAL HISTORY: Open cholecystectomy and appendectomy. ALLERGIES: 1. CODEINE. 2. PENICILLIN. MEDICATIONS: As listed in the chart and are reviewed. FAMILY HISTORY: Noncontributory. SOCIAL HISTORY: She is accompanied by a family member. Denies alcohol, tobacco or illicit drug use. 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 She found her work very satisfying. DIAGNOSTIC STUDIES: Imaging of her lumbar spine, CAT scan and MRI showed degenerative changes. Head CT showed some age-related changes with no acute abnormality. Chest x-ray no acute disease. Pelvic ultrasound and CAT scan of the abdomen and pelvis both show a markedly enlarged uterus, fluid and/or solid tissue within the dilated uterine cavity, mass effect in the lower uterine segment and cervix. No overt evidence to suggest metastatic disease and that there is no ascites, adenopathy, omental thickening, intraperitoneal nodularity or other changes. LABORATORY STUDIES: She was admitted a week ago on 03/17/2018. H and H at that time were 13.9 and 40.7, white count was elevated at 17.9. Currently, her H and H as of this morning 11.2 and 33.3, white count 31.6, platelets normal at 311. CA-125 modestly elevated 78. CA 19-9 modestly elevated at 36. Her troponins were less than 0.02, but her CK-MB 1 and 2 are elevated. Transaminases elevated. The liver functions have improved. Bilirubin has been normal, 0.8 at admission. BUN and creatinine currently 24 and 0.61. PHYSICAL EXAMINATION: VITAL SIGNS: She is afebrile currently, respirations 18, blood pressure 154/80, pulse 96. GENERAL: She seems to be alert and oriented x 3, talkative, very pleasant, asks insightful questions. She is accompanied by a family member. HEENT: Pupils equal, round, reactive to light. Mucous membranes are moist. NECK: No adenopathy in the cervical or supraclavicular area. HEART: Normal S1 and S2. Regular rate and rhythm with an occasional premature beat. LUNGS: Clear to auscultation. Scant basilar rales. BACK: Without CVA tenderness or point tenderness. ABDOMEN: Not appreciably distended. There is a fullness palpable in the lower midline of the abdomen although her abdomen itself on visual inspection is flat. There is no rebound or guarding. GYNECOLOGIC: Exam is deferred until exam under anesthesia. EXTREMITIES: Shows some superficial abrasions. She has some well-healed scars that seem consistent her varicose vein surgery. Trace to 1+ lower extremity edema in the ankles and lower legs. No palpable cords. Vascularly intact. Time is spent discussion with her, reviewing findings in her case to date, the reason for INSURANCE SALES MANAGER oncology consultation is explained. I explained the findings as above, expressed concern about her symptoms and the abnormalities displayed on imaging as well as the tissue protruding into the vagina, a portion of which was removed for a pathology specimen, the results of which are pending at the time of this dictation. I recommend we obtain additional information to try to clarify whether this is benign or malignant to try to clarify the origin of vaginal versus cervical or a mass from the endometrium that has prolapsed through a dilated cervix or even the possibility of a problem arising from elsewhere in the pelvis, such as the bladder, anus or rectum that has extended into the central pelvis and/or to clarify if the problem has extended into the bladder or into the anus or rectum. I have recommend an exam where it would not be uncomfortable to her and that we would exam under anesthesia to get additional tissue biopsies if technically feasible to get into the uterine cavity, dilate the cervix, drain some fluid to perform a fractional dilation and curettage and to perform cystoscopy and proctoscopy and the reason for each of those steps are explained. I also explained that this may be a tumor that is arising from the vagina or arising from and replacing the cervix, such that it may not be safe or feasible to enter the cervical canal for risk of hemorrhage or it may be obstructed due to whatever this abnormality is. Nevertheless, the purpose of this procedure is information gathering. We will try to clarify the origin of this tissue, try to determine the type and extent so that we can subsequently make recommendations for intervention. Intervention may include such things as packing the vagina or using hemostatic agents, it may include a consultation with interventional radiology to consider arterial embolization, it could include surgical intervention such as hysterectomy or it may include radiation and chemotherapy which is certainly a broad spectrum of possibilities and accordingly more information is needed to try to clarify. Discussion ensued. Questions were answered. They expressed good understanding and agreed. She has been made aware that we have tentatively scheduled this for 7:00 a.m. this forthcoming to (03/25/2018), she will need to be n.p.o. after midnight Thursday night and stay on clear liquids tomorrow, but I do not think a bowel prep is necessary. She and her family member expressed good understanding and would like to move forward as per our recommendations. ASSESSMENT: 1. Postmenopausal bleeding. 2. Enlarged uterus, fluid and/or tissue in the endometrial cavity, a mass-like effect in the lower uterine segment, cervix and mass-like tissue extending into the vagina. 3. Extensive discussion PLAN: 1. Exam under anesthesia morning, 03/25/2018 at 7:00 a.m. 2. Keep n.p.o. after midnight on Thursday. ADDENDUM: Pathology has been signed out from the tissue previously removed on pelvic exam. It remains largely nondiagnostic as it was largely necrotic and specific information could not be provided. There is a range of possibilities without definitive diagnosis. Thank you for the consultation. MD LEIGH ANN Herman/BERNARDA , 05:30 PM , 06:27 PM
[2018-03-23 19:30] VITALS: BP 137/74; PULSE 73; RESP 18; TEMP 99.7; O2SAT 97
--- NOTE | 2018-03-23 19:51 | PD.CONS ---
History of Present Illness Service Neurosurgery Consult Requested By Medicine service Reason for Consult Lumbar stenosis Primary Care Physician Yaron Salazar M.D. Diagnoses: History of Present Illness 72-year-old female who presented to the emergency room on 03/17/2018 with complaints of approximately 1 week of abdominal pain, vaginal bleeding. She has also noted approximately 2 weeks of increased difficulty with ambulation which she states may be related to recent onset of vertigo. She does not indicate any recent back or lower extremity pain symptoms. She has felt somewhat unsteady ambulating. Some complaint of generalized weakness in the lower extremities with ambulation recently. She does state that she has been using a cane to ambulate for quite a while due to some gait unsteadiness. She states that she tripped over her dog and lost her balance, fell to the ground and passed out at home on the day of admission, initially unable to stand up due to diffuse numbness in the lower extremities. She was able to crawl to a phone to ask for help. The lower extremity numbness has since resolved and she has no complaint of ongoing weakness. She did have some problems with bladder control in the few days prior to admission, however this seemed to be temporary. She has been seen by Dr. Bennett, found to have enlarged uterus, masslike region of the cervix and vagina. She has been scheduled for examination under anesthesia on 03/25/2018. Previous biopsies have been nondiagnostic. Review of Systems Constitutional: COMPLAINS OF: Fatigue, Dizziness, Change in appetite, DENIES: Fever Eyes: DENIES: Blurred vision Ears, nose, mouth, throat: COMPLAINS OF: Vertigo Respiratory: DENIES: Cough Cardiovascular: DENIES: Chest pain, Palpitations Gastrointestinal: DENIES: Abdominal pain, Nausea, Vomiting Genitourinary: COMPLAINS OF: Abnormal vaginal bleeding Musculoskeletal: DENIES: Joint pain, Muscle aches Hematologic/lymphatic: DENIES: Bruising Neurologic: COMPLAINS OF: Abnormal gait, DENIES: Headache Psychiatric: DENIES: Confusion Past Family Social History Allergies: Coded Allergies: codeine (Unverified Allergy, Mild, 03/14/18) penicillin G (Unverified Allergy, Mild, 03/14/18) Past Medical History Hypertension Dyslipidemia Hypothyroidism Arthritis Past Surgical History Appendectomy Cholecystectomy Reported Medications Reported Meds & Active Scripts Active Tramadol (Tramadol HCl) 50 Mg Tab 50 Mg PO Q6H PRN Reported Levothyroxine (Levothyroxine Sodium) 137 Mcg Tab 137 Mcg PO DAILY Losartan-Hydrochlorothiazide 100-25 Mg Tab 1 Tab PO DAILY Donepezil 5 Mg Tab 5 Mg PO HS Atorvastatin (Atorvastatin Calcium) 20 Mg Tab 20 Mg PO HS Fluoxetine (Fluoxetine HCl) 20 Mg Capsule 20 Mg PO BID Aspirin Children's (Aspirin) 81 Mg Chew 81 Mg CHEW DAILY Family History Negative neurologic disorders Social History No history of significant alcohol or cigarette use Physical Exam Vital Signs Vital Signs Date Time Temp Pulse Resp B/P (MAP) Pulse Ox O2 Delivery O2 Flow Rate FiO2 03/23/18 16:30 98.7 74 18 154/80 (104) 96 03/23/18 12:45 97.6 58 16 154/72 (99) 98 03/23/18 08:05 98.4 62 16 163/80 (107) 97 03/23/18 04:00 97.9 57 16 168/74 (105) 97 03/23/18 00:00 97.8 62 16 132/80 (97) 98 03/22/18 20:00 97.8 59 16 151/70 (97) 98 Physical Exam GENERAL: This is a well-nourished, well-developed patient, no apparent distress. SKIN: No abrasions, contusion, rash noted. Skin warm and dry. HEAD: Atraumatic. Normocephalic. No temporal or scalp tenderness. EYES: Sclerae are clear and nonicteric ENT: No facial edema or ecchymosis. No periorbital edema. No CSF otorrhea or rhinorrhea. No palpable facial fracture or deformity. NECK: Trachea midline. No cervical spine tenderness. CARDIOVASCULAR: Regular rate and rhythm without murmurs, gallops, or rubs. RESPIRATORY: Clear to auscultation. Breath sounds equal bilaterally. No wheezes , rales, or rhonchi. GASTROINTESTINAL: Abdomen soft, non-tender, nondistended. No hepato-splenomegaly , or palpable masses. No guarding. MUSCULOSKELETAL: Extremities without cyanosis, or edema. No joint tenderness, or edema noted. No calf tenderness. Dorsalis pedis pulses 2+ bilateral NEUROLOGICAL: Awake and alert Oriented X 3 Speech is clear Conversant and appropriate Follow simple commands well Answers questions appropriately Reasonable judgment and insight Recent and remote memory are intact No evidence of anxiety or depression Pupils are equal and reactive to accommodation. Extra-ocular movements, visual pierre to confrontation, facial sensorimotor, tongue, palate, sternocleidomastoid testing, hearing to finger rub testing, and bilateral shoulder shrug are all intact. Sensation is intact to light touch in all extremities Strength normal major flexion and extension groups all extremities Vandana's absent bilaterally No ankle clonus Plantar responses absent bilateral Fine motor movements intact upper extremities Laboratory Laboratory Tests Test 03/22/18 20:32 03/23/18 05:27 White Blood Count 36.9 31.6 Red Blood Count 3.97 3.59 Hemoglobin 12.1 11.2 Hematocrit 36.6 33.3 Mean Corpuscular Volume 92.3 92.6 Mean Corpuscular Hemoglobin 30.4 31.1 Mean Corpuscular Hemoglobin Concent 33.0 33.5 Red Cell Distribution Width 13.0 12.8 Platelet Count 377 311 Mean Platelet Volume 8.9 8.7 Neutrophils (%) (Auto) 81.9 Lymphocytes (%) (Auto) 13.0 Monocytes (%) (Auto) 4.6 Eosinophils (%) (Auto) 0.1 Basophils (%) (Auto) 0.4 Neutrophils # (Auto) 25.9 Lymphocytes # (Auto) 4.1 Monocytes # (Auto) 1.5 Eosinophils # (Auto) 0.0 Basophils # (Auto) 0.1 CBC Comment AUTO DIFF Differential Total Cells Counted 100 Neutrophils % (Manual) 80 Band Neutrophils % 4 Lymphocytes % 10 Monocytes % 4 Neutrophils # (Manual) 27.2 Metamyelocytes 1 Myelocytes 1 Differential Comment FINAL DIFF MANUAL Platelet Estimate NORMAL Platelet Morphology Comment NORMAL Red Cell Morphology Comment NORMAL Blood Urea Nitrogen 24 Creatinine 0.61 Random Glucose 80 Total Protein 4.6 Albumin 1.9 Calcium Level 9.4 Alkaline Phosphatase 110 Aspartate Amino Transf (AST/SGOT) 35 Alanine Aminotransferase (ALT/SGPT) 72 Total Bilirubin 0.4 Sodium Level 143 Potassium Level 3.5 Chloride Level 107 Carbon Dioxide Level 28.6 Anion Gap 7 Estimat Glomerular Filtration Rate 97 Date/Time Source Procedure Growth Status 03/17/18 13:30 Urine Catheterized Urine Urine Culture - Final NO GROWTH IN 48 HOURS. Complete 03/17/18 15:00 Wound Groin Gram Stain - Final Complete 03/17/18 15:00 Wound Culture - Final Escherichia Coli Complete Result Diagram: 03/23/18 0503/23/1827 Imaging 03/17/2018 MRI lumbar spine images reviewed. The study reveals severe L4-5 and L5-S1 degenerative disc disease, loss of intervertebral disc space height. There is a at least moderate posterior osteophytic disc complex at the L4-5 and L5-S1 level which along with moderate facet and ligament hypertrophy creates severe L4-5 stenosis with approximately 4 mm central AP thecal sac dimension. Approximately 4-5 mm canal at the L3-4 level and 8 mm at the L5-S1 level. Pelvis Ultrasound 03/19/18 1121 Signed Impressions: Service Date/Time: Monday, March 19, 2018 17:40 - CONCLUSION: Markedly abnormal uterus which is enlarged and contains heterogeneous material including fluid within the endometrial canal. I'm not able to clearly identify a mass, however, the lower uterine segment and cervix are poorly visualized on this study. Consider MRI of the pelvis with contrast as follow. Neither ovary visualized. Sotero Fernando Jr., MD Abdomen/Pelvis CT 03/17/18 1449 Signed Impressions: Service Date/Time: Saturday, March 17, 2018 15:47 - CONCLUSION: Uterus is distended with heterogeneous debris. The appearance would be most consistent with uterine obstruction as associated with endometrial or cervical carcinoma. Mario Goodrich MD Lumbar Spine CT 03/17/18 1004 Signed Impressions: Service Date/Time: Saturday, March 17, 2018 10:39 - CONCLUSION: Extensive degenerative changes radiographically significant spinal stenosis from L2-L4. Mejia Fuentes MD FACR Head CT 03/17/18 1004 Signed Impressions: Service Date/Time: Saturday, March 17, 2018 10:36 - CONCLUSION: 1. Senescent changes with mild periventricular small vessel ischemic white matter demyelination. 2. No acute intracranial abnormality. Jaxon Rivera MD Chest X-Ray 03/17/18 1004 Signed Impressions: Service Date/Time: Saturday, March 17, 2018 10:50 - CONCLUSION: No acute disease. Mejia Fuentes MD FACR Lumbar Spine MRI 03/17/18 0000 Signed Impressions: Service Date/Time: Saturday, March 17, 2018 13:57 - CONCLUSION: 1. Very limited postcontrast images due to motion degradation. No significant abnormal enhancement although evaluation of the conus is not possible. 2. Redemonstration of advanced multilevel degenerative spondylosis of the lumbar spine with multilevel severe spinal canal narrowing most prominently at L4-5 with near-complete effacement of the central canal. 3. Multilevel variable neural foraminal stenosis most prominently on the left at L4-5 and L5-S1. 4. Please see above for detailed description of each level. Jaxon Rivera MD Assessment and Plan Assessment and Plan Impression: 1. Lumbar spondylosis and degenerative disc disease. Severe L4-5 canal stenosis with AP thecal sac dimension, severe bilateral lateral recess stenosis. 2. No evidence of focal lumbar radiculopathy, or cauda equina syndrome. Possible mild recent claudication symptoms. 3. Uterine, cervical, vaginal masslike abnormalities with enlarged uterus. Plan: Continue to watch closely for any signs of progressive radiculopathy or development of cauda equina syndrome. At this point patient should complete her gynecologic oncology evaluation to get a better understanding of what further treatment she may require as well as overall prognosis. She can mobilize out of bed with assistance, continue physical therapy. Signs and symptoms to watch for including possible foot drop have been discussed. She will need intermittent monitoring of her her lower extremity neurologic function on an ongoing basis. Bautista Nguyen MD Mar 23, 2018 19:51
[2018-03-23] MEDS: DONEPEZIL HCL 5 MG TAB PO SCH (20:54)
[2018-03-23] MEDS: ATORVASTATIN 20 MG TAB PO SCH (20:54)
[2018-03-23 21:55] LABS: HEMATOCRIT 34.3 % (35.0-46.0); HEMOGLOBIN 11.5 GM/DL (11.6-15.3); MEAN CELL VOLUME 91.9 FL (80.0-100.0); MEAN CORPUSCULAR HEMOGLOBIN 30.7 PG (27.0-34.0); MEAN CORPUSCULAR HGB CONC 33.4 % (32.0-36.0); MEAN PLATELET VOLUME 8.6 FL (7.0-11.0); PLATELET COUNT 360 TH/MM3 (150-450); RED BLOOD COUNT 3.74 MIL/MM3 (4.00-5.30); RED CELL DISTRIBUTION WIDTH 13.1 % (11.6-17.2); WHITE BLOOD COUNT 37.1 TH/MM3 (4.0-11.0)
[2018-03-24] VITALS (8 sets, daily range): BP systolic 91–163; BP diastolic 49–90; PULSE 58–80; RESP 18–24; TEMP 97.1–98.3; O2SAT 95–99
[2018-03-24] MEDS: ACETAMINOPHEN/HYDROcodone 325 MG/5 MG TAB PO PRN ×6 (00:38→22:05)
[2018-03-24] MEDS: LEVOTHYROXINE SODIUM 25 MCG TAB PO SCH (05:20)
[2018-03-24] MEDS: cloNIDine HCL 0.1 MG TAB PO PRN (05:20)
[2018-03-24] MEDS: LEVOTHYROXINE SODIUM 112 MCG TAB PO SCH (05:20)
[2018-03-24 08:55] LABS: AUTOMATED NEUTROPHIL # 34.8 TH/MM3 (1.8-7.7); BASOPHIL % 0.1 % (0.0-2.0); EOSINOPHIL % 0.1 % (0.0-4.0); HEMATOCRIT 34.2 % (35.0-46.0); HEMOGLOBIN 11.3 GM/DL (11.6-15.3); LYMPH % 7.6 % (9.0-44.0); MEAN CELL VOLUME 92.7 FL (80.0-100.0); MEAN CORPUSCULAR HEMOGLOBIN 30.6 PG (27.0-34.0); MONO % 3.2 % (0.0-8.0); MONOCYTE # 1.3 TH/MM3 (0-0.9); PLATELET COUNT 361 TH/MM3 (150-450); RED BLOOD COUNT 3.69 MIL/MM3 (4.00-5.30); RED CELL DISTRIBUTION WIDTH 12.9 % (11.6-17.2); WHITE BLOOD COUNT 39.1 TH/MM3 (4.0-11.0)
[2018-03-24] MEDS: LOSARTAN 50 MG TAB PO SCH (09:00)
[2018-03-24 09:29] LABS: AST (GOT) 41 U/L (15-37); BICARBONATE 28.9 MEQ/L (21.0-32.0); BLOOD UREA NITROGEN 19 MG/DL (7-18); CALCIUM 9.6 MG/DL (8.5-10.1); CHLORIDE 105 MEQ/L (98-107); CREATININE 0.71 MG/DL (0.50-1.00); GLOMERULAR FILTRATION RATE 81 ML/MIN (>89); GLUCOSE,RANDOM 94 MG/DL (74-106); SODIUM (NA) 141 MEQ/L (136-145)
[2018-03-24 09:32] LABS: ALKALINE PHOSPHATASE 128 U/L (45-117); ALT (GPT) 71 U/L (10-53); TOTAL BILIRUBIN ADULT 0.5 MG/DL (0.2-1.0)
[2018-03-24 09:38] LABS: BANDS 3 % (0-6); LYMPHOCYTES 6 % (9-44); MONOCYTES 6 % (0-8); NEUTROPHIL # MANUAL DIFF 34.4 TH/MM3 (1.8-7.7); POLYS (SEG NEUTROPHILS) 85 % (16-70)
[2018-03-24] MEDS: HYDROCHLOROTHIAZIDE 25 MG TAB PO SCH (09:41)
[2018-03-24] MEDS: amLODIPine BESYLATE 5 MG TAB PO SCH (09:43)
[2018-03-24] MEDS: FLUoxetine HCL 20 MG CAP PO SCH ×2 (09:43→22:06)
[2018-03-24] MEDS: DOCUSATE SODIUM 50 MG/SENNA 8.6 MG TAB PO SCH ×2 (09:43→22:05)
[2018-03-24] MEDS: predniSONE 20 MG TAB PO SCH ×2 (09:43→22:06)
--- NOTE | 2018-03-24 12:52 | HHI.PR ---
Subjective Remarks Patient still complaining of vaginal bleeding. Still having abdominal cramps but these are better controlled. Denies fevers or chills. Denies diarrhea. Denies nausea, vomiting. Objective Vitals Vital Signs Date Time Temp Pulse Resp B/P (MAP) Pulse Ox O2 Delivery O2 Flow Rate FiO2 03/24/18 10:44 18 03/24/18 08:00 97.3 58 18 105/55 (72) 98 03/24/18 05:16 97.9 69 18 163/90 (114) 96 03/24/18 00:42 97.1 73 18 129/73 (91) 99 03/23/18 19:30 99.7 73 18 137/74 (95) 97 03/23/18 16:30 98.7 74 18 154/80 (104) 96 03/23/18 12:45 97.6 58 16 154/72 (99) 98 I/O 03/23/18 03/23/18 03/23/18 03/24/18 03/24/18 03/24/18 07:00 15:00 23:00 07:00 15:00 23:00 Intake Total 150 ml 1200 ml Balance 150 ml 1200 ml Intake Oral 150 ml 1200 ml # Voids 2 7 2 # Bowel Movements 1 # Sanitary Pads 5 Pads Result Diagram: 03/24/18 0841 03/24/18 0841 Imaging Last Impressions Pelvis Ultrasound 03/19/18 1121 Signed Impressions: Service Date/Time: Monday, March 19, 2018 17:40 - CONCLUSION: Markedly abnormal uterus which is enlarged and contains heterogeneous material including fluid within the endometrial canal. I'm not able to clearly identify a mass, however, the lower uterine segment and cervix are poorly visualized on this study. Consider MRI of the pelvis with contrast as follow. Neither ovary visualized. Sotero Fernando Jr., MD Abdomen/Pelvis CT 03/17/18 1449 Signed Impressions: Service Date/Time: Saturday, March 17, 2018 15:47 - CONCLUSION: Uterus is distended with heterogeneous debris. The appearance would be most consistent with uterine obstruction as associated with endometrial or cervical carcinoma. Mario Goodrich MD Lumbar Spine CT 03/17/18 1004 Signed Impressions: Service Date/Time: Saturday, March 17, 2018 10:39 - CONCLUSION: Extensive degenerative changes radiographically significant spinal stenosis from L2-L4. Mejia Fuentes MD FACR Head CT 03/17/18 1004 Signed Impressions: Service Date/Time: Saturday, March 17, 2018 10:36 - CONCLUSION: 1. Senescent changes with mild periventricular small vessel ischemic white matter demyelination. 2. No acute intracranial abnormality. Jaxon Rivera MD Chest X-Ray 03/17/18 1004 Signed Impressions: Service Date/Time: Saturday, March 17, 2018 10:50 - CONCLUSION: No acute disease. Mejia Fuentes MD FACR Lumbar Spine MRI 03/17/18 0000 Signed Impressions: Service Date/Time: Saturday, March 17, 2018 13:57 - CONCLUSION: 1. Very limited postcontrast images due to motion degradation. No significant abnormal enhancement although evaluation of the conus is not possible. 2. Redemonstration of advanced multilevel degenerative spondylosis of the lumbar spine with multilevel severe spinal canal narrowing most prominently at L4-5 with near-complete effacement of the central canal. 3. Multilevel variable neural foraminal stenosis most prominently on the left at L4-5 and L5-S1. 4. Please see above for detailed description of each level. Jaxon Rivera MD Objective Remarks AAOx3, moderate distress due to pain Clear lungs BL S1S2 RRR, no MRG abdomen soft, moderately tender to palpation of hypogastric region, no rebound tenderness no edema in lower extremities + vaginal bleeding cranial nerves II through XII appear to be normal. Muscle strength is 5/5 in all extremities. Intact sensation in all extremities. Procedures none Medications and IVs Current Medications Medications (Trade) Dose Ordered Sig/Kareem Route Start Time Stop Time Status Last Admin (NS Flush) 2 ml UNSCH PRN IV FLUSH 03/17/18 18:00 (NS Flush) 2 ml BID IV FLUSH 03/17/18 21:00 03/23/18 20:57 (Zofran Inj) 4 mg Q6H PRN IVP 03/17/18 18:00 (Ambien) 5 mg HS PRN PO 03/17/18 18:00 03/22/18 21:32 (Narcan Inj) 0.4 mg UNSCH PRN IV PUSH 03/17/18 18:00 (Nargis-Colace) 1 tab BID PO 03/17/18 21:00 03/24/18 09:43 (Milk Of Magnesia Liq) 30 ml Q12H PRN PO 03/17/18 18:00 (Senokot) 17.2 mg Q12H PRN PO 03/17/18 18:00 (Dulcolax Supp) 10 mg DAILY PRN RECTAL 03/17/18 18:00 (Lactulose Liq) 30 ml DAILY PRN PO 03/17/18 18:00 (Synthroid) 112 mcg DAILY@0600 PO 03/18/18 06:00 03/24/18 05:20 (Cozaar) 100 mg DAILY PO 03/18/18 09:00 03/24/18 09:00 (Hydrodiuril) 25 mg DAILY PO 03/18/18 09:00 03/24/18 09:41 (Synthroid) 25 mcg DAILY@0600 PO 03/18/18 06:00 03/24/18 05:20 (Lipitor) 20 mg HS PO 03/18/18 21:00 03/23/18 20:54 (Aricept) 5 mg HS PO 03/18/18 21:00 03/23/18 20:54 (PROzac) 20 mg BID PO 03/18/18 21:00 03/24/18 09:43 (Glycerin Adult Supp) 2 gm BID PRN RECTAL 03/20/18 12:00 (Catapres) 0.1 mg Q6H PRN PO 03/20/18 12:15 03/24/18 05:20 (Deltasone) 20 mg BID PO 03/23/18 09:15 03/24/18 09:43 (Norvasc) 5 mg DAILY PO 03/24/18 09:00 03/24/18 09:43 ([place] 5-325 Mg) 1 tab Q4H PRN PO 03/23/18 15:45 ([place] 5-325 Mg) 2 tab Q4H PRN PO 03/23/18 15:45 03/24/18 09:44 (Morphine Inj) 2 mg Q3H PRN IV PUSH 03/23/18 15:45 A/P Problem List: (1) Uterine infection ICD Code: N71.9 - Inflammatory disease of uterus, unspecified Status: Acute (2) Rhabdomyolysis ICD Code: M62.82 - Rhabdomyolysis Status: Acute (3) Back pain ICD Code: M54.9 - Dorsalgia, unspecified Status: Acute (4) Uterine mass ICD Code: N85.9 - Noninflammatory disorder of uterus, unspecified Status: Acute (5) Vaginal bleeding ICD Code: N93.9 - Abnormal uterine and vaginal bleeding, unspecified Status: Acute (6) Leukocytosis ICD Code: D72.829 - Elevated white blood cell count, unspecified (7) Sepsis ICD Code: A41.9 - Sepsis, unspecified organism (8) Central stenosis of spinal canal ICD Code: M48.00 - Spinal stenosis, site unspecified Assessment and Plan Uterine mass w signs of infection Uterine masses concerning for malignancy with elevated CA-19-9 and CEA 125. Uterine ultrasound shows widespread abnormality, MRI deferred due to today's obtaining of tissue sample Gynecology was able to obtain a tissue sample during manual exam 03/20, pathology results pending 03/22 continue oral doxycycline for presumptive infection as per previous records. Patient with active GI bleeding. Discussed with RN will contact [facility] and will get stat CBC and c anticoagulate and profile. 03/23 awaiting [facility]/oncology recommendations. Monitor H&H every 12 hours. Awaiting pathology results. 03/24 pathology showed a fragment of tissue almost entirely necrotic with several diagnostic possibilities. The patient has been seen by [facility] oncology and is going for exam under anesthesia on morning, 03/25/18 at 7 AM. Keep n.p.o. after midnight. Benign paroxysmal positional vertigo Patient has history of MS which should be considered, however the onset of her symptoms are more consistent with BPPV Patient states she feels well today, vertigo is minimal 03/23 DC IV Solu-Medrol and start the patient on prednisone taper. Dizziness resolved. 03/24 no recurrence of dizziness. Continue to taper prednisone. Hypertension Clonidine as needed, hydralazine as needed Continue home meds as baseline coverage 03/22 blood pressure has been persistently elevated into the 140s up to 190s. Continue as needed antihypertensive medications as above. Continue losartan and HCTZ. 03/23 blood pressure severely elevated into the 170 systolic. Continue losartan and hydrochlorothiazide. Add amlodipine 5 mg p.o. daily. 03/24 blood pressure with improved control. Continue losartan, hydrochlorothiazide and amlodipine. Mild dementia By daughter's report, continue supportive care Seems stable. Hypothyroidism On levothyroxine. Continue. Vaginal bleeding Coagulation profile normal. Hemoglobin dropped from 12.1-11.2. Continue to monitor CBC Transfuse as needed for hemoglobin less than 8 with a target of hemoglobin more than 9. 03/24 hemoglobin stable at 11.3. Low back pain/spinal canal stenosis. Patient had imaging of the lumbar spine including lumbar spine CT which showed extensive degenerative changes radiographically, significant spinal stenosis from L2 through L4. MRI of the lumbar spine showed advanced multilevel degenerative spondylosis of the lumbar spine with multilevel severe spinal canal narrowing most prominently at L4-5 with near complete effacement of the central canal. Multilevel variable neural foraminal stenosis most prominent on the left at L4-5 and L5-S1. Patient started on IV Dilaudid for pain control. I will place on oral [place] and IV morphine for breakthrough pain. Consult neurosurgery. 03/24 appreciate neurosurgery consultation. Recommended conservative management with close observation of any signs of progressive radiculopathy or development of cauda equina syndrome. I will liberalize out of bed with assistance and continue physical therapy. Recommended intermittent monitoring of her lower extremity neurologic function ongoing basis. Continue pain control as above. DVT prophylaxis As per previous records the patient supposedly on Lovenox, however upon review of active medication list, the patient is not on Lovenox. Discharge Planning For exam under anesthesia with possible hysterectomy in a.m. Problem Qualifiers (1) Rhabdomyolysis: Qualified Codes: T79.6XXA - Traumatic ischemia of muscle, initial encounter (2) Back pain: Qualified Codes: M54.5 - Low back pain; G89.29 - Other chronic pain (3) Leukocytosis: Qualified Codes: D72.829 - Elevated white blood cell count, unspecified (4) Sepsis: Qualified Codes: A41.9 - Sepsis, unspecified organism Howard Demarco MD Mar 24, 2018 12:52
--- NOTE | 2018-03-24 12:56 | RADRPT ---
EXAM DATE/TIME: 03/24/2018 12:00 [facility] COMPARISON: No previous studies available for comparison. INDICATIONS : Lower extremity numbness. MEDICAL HISTORY : Hypertension. SURGICAL HISTORY : Cholecystectomy. Lt foot surgery ENCOUNTER: Subsequent ACUITY: 4-6 days PAIN SCORE: 0/10 LOCATION: neck TECHNIQUE: Multiplanar, multisequence MRI examination of the cervical spine was performed. FINDINGS: VERTEBRAE: Normal vertebral body height. Homogeneous marrow signal. ALIGNMENT: No evidence of subluxation. CORD: Normal configuration and signal. POST FOSSA: The cerebellar tonsils are normal in position. C2-C3: The thecal sac has a normal configuration. There is no evidence of disc herniation or spinal canal s tenosis. The neural foramina are patent bilaterally. C3-C4: The thecal sac has a normal configuration. There is no evidence of disc herniation or spinal canal s tenosis. The neural foramina are patent bilaterally. C4-C5: The thecal sac has a normal configuration. There is no evidence of disc herniation or spinal canal s tenosis. The neural foramina are patent bilaterally. C5-C6: There is a mild broad-based disc osteophyte complex with mild mass effect on the anterior thecal sac and mild flattening of the anterior cord. There is no abnormal signal. There is a small amount of res idual CSF surrounding the cord. It is a mild narrowing of the neural foramina. C6-C7: The thecal sac has a normal configuration. There is no evidence of disc herniation or spinal canal s tenosis. The neural foramina are patent bilaterally. C7-T1: The thecal sac has a normal configuration. There is no evidence of disc herniation or spinal canal s tenosis. The neural foramina are patent bilaterally. CONCLUSION: 1. Mild disc osteophyte complex at C5-6 with mass effect on the anterior thecal sac and mild flatteni ng of anterior cord with no abnormal signal. 2. Mild narrowing of the neural foramina bilaterally at C5-6. Ocsar Barrientos MD on March 24, 2018 at 12:51 Board Certified Radiologist. This report was verified electronically.
[2018-03-24] MEDS: SODIUM CHLORIDE 0.9% FLUSH 10 ML FLUSH IV FLUSH SCH ×2 (18:43→22:06)
--- NOTE | 2018-03-24 20:13 | HHI.NSPN ---
History Chief Complaint: Mild lower extremity numbness Interval History 72-year-old female who presented to the emergency room on 03/17/2018 with complaints of approximately 1 week of abdominal pain, vaginal bleeding. She has also noted approximately 2 weeks of increased difficulty with ambulation which she states may be related to recent onset of vertigo. She does not indicate any recent back or lower extremity pain symptoms. She has felt somewhat unsteady ambulating. Some complaint of generalized weakness in the lower extremities with ambulation recently. She does state that she has been using a cane to ambulate for quite a while due to some gait unsteadiness. She states that she tripped over her dog and lost her balance, fell to the ground and passed out at home on the day of admission, initially unable to stand up due to diffuse numbness in the lower extremities. She was able to crawl to a phone to ask for help. The lower extremity numbness has since resolved and she has no complaint of ongoing weakness. She did have some problems with bladder control in the few days prior to admission, however this seemed to be temporary. She has been seen by Dr. Bennett, found to have enlarged uterus, masslike region of the cervix and vagina. She has been scheduled for examination under anesthesia on 03/25/2018. Previous biopsies have been nondiagnostic. 03/24/2018: Patient states that lower extremity numbness continues to improve. She does have some baseline chronic numbness in the lower extremities. It does not appear to her present symptoms are much different than her usual baseline. She was able to ambulate with therapy today. No significant low back pain. Exam Results Vital Signs Date Time Temp Pulse Resp B/P (MAP) Pulse Ox O2 Delivery O2 Flow Rate FiO2 03/24/18 18:00 97.6 63 18 108/62 (77) 03/24/18 13:30 97 Intake and Output 03/24/18 03/24/18 03/25/18 08:00 16:00 00:00 Intake Total 840 ml Balance 840 ml Physical Examination Awake and alert Conversant and appropriate Sensation mostly intact to light touch in the lower extremities with complaint of mild paresthesias-may be close to her usual baseline. Strength is 5/5 all major flexion-extension groups in the lower extremities. No ankle clonus Castrejon's response mild positive right, absent left Plantar responses are absent Lab, Micro, Other Results 03/24/2018 cervical spine MRI images are reviewed. Mild C5-6 posterior osteophytic disc complex with effacement of the anterior thecal sac. No significant spinal cord or nerve compression. No abnormal cervical cord signal intensity. Cervical Spine MRI 03/24/18 0000 Signed Impressions: Service Date/Time: Saturday, March 24, 2018 12:00 - CONCLUSION: 1. Mild disc osteophyte complex at C5-6 with mass effect on the anterior thecal sac and mild flattening of anterior cord with no abnormal signal. 2. Mild narrowing of the neural foramina bilaterally at C5-6. Oscar Barrientos MD Medical Decision Making Impression and Plan Impression: 1. L4-5 stenosis. No definite evidence of cauda equina syndrome or focal lumbar radiculopathy. She may have some mild relatively chronic neurogenic claudication symptoms. Plan: Findings were discussed at length with the patient. She will continue conservative treatment and observation for the lumbar stenosis. I would like to see her back for follow-up in 2-3 months. Signs and symptoms to watch for fully discussed including signs of claudication , cauda equina syndrome, or radiculopathy including foot drop. She appears to understand all of the above All questions answered She is stable for discharge from a neurosurgical standpoint Bautista Nguyen MD Mar 24, 2018 20:13
[2018-03-24] MEDS: DONEPEZIL HCL 5 MG TAB PO SCH (22:05)
[2018-03-24] MEDS: ATORVASTATIN 20 MG TAB PO SCH (22:06)
[2018-03-25] VITALS (13 sets, daily range): BP systolic 106–142; BP diastolic 53–80; PULSE 64–83; RESP 16–22; TEMP 97.9–99.7; O2SAT 74–98
[2018-03-25] MEDS: LEVOTHYROXINE SODIUM 112 MCG TAB PO SCH (06:00)
[2018-03-25] MEDS: LEVOTHYROXINE SODIUM 25 MCG TAB PO SCH (06:00)
[2018-03-25] MEDS ORDERED: LIDOCAINE 1%/EPINEPHrine 1:100,000 SOLN 50 ML VIAL ONE (06:15)
[2018-03-25] MEDS ORDERED: ESTROGENS CONJUGATED VAG CREA 15 APPL/30 GM TUBE ONE ×3 (07:25→07:42)
[2018-03-25] MEDS ORDERED: MIDAZOLAM HCL 2 MG/2 ML VIAL ONE ×3 (08:24→10:13)
[2018-03-25] MEDS ORDERED: fentaNYL CITRATE 250 MCG/5 ML AMP ONE (08:50)
--- NOTE | 2018-03-25 08:54 | MP ---
cc: Barbie Bennett MD,Howard Milligan,Carson Nguyen,Bautista Bravo,Russ Shi,Glen Bravo,Geo Johnson MD DATE OF OPERATION: 03/25/2018 PREOPERATIVE DIAGNOSIS: 1. Enlarged uterus with fluid or blood in the uterine cavity. 2. Large pelvic tumor hemorrhagic. 3. Mass effect in the lower uterine segment, cervix and vagina. 4. Initial tissue biopsy necrotic, nondiagnostic. POSTOPERATIVE DIAGNOSIS the 1. Enlarged uterus with fluid or blood in the uterine cavity. 2. Large pelvic tumor hemorrhagic. 3. Mass effect in the lower uterine segment, cervix and vagina. 4. Initial tissue biopsy necrotic, nondiagnostic. 5. Active bleeding. PROCEDURE: Examination under anesthesia, removal of necrotic mass extending through the introitus approximately 10 cm in diameter with large multiple biopsies of tissue in the vagina and against the right upper vaginal sidewall, vaginal packing and Alejandro catheter placement for acquisition of hemostasis. SURGEON: Barbie Bennett MD. PLATE KEEPER: Terri safety assistant. ANESTHESIA: General endotracheal anesthesia. ESTIMATED BLOOD LOSS: 300 mL. HISTORY: A 72-year-old female presented to the emergency room after weakness, falling down at home. She has some neuromuscular disorder, possible variant of multiple sclerosis that is being evaluated. Also in her history, she reports bleeding supposedly of only 7 days duration. Imaging was obtained which showed a markedly enlarged uterus, fluid or blood and a dilated uterine cavity with some solid tissue,as well and then a very widened lower uterine segment, cervix and mass-like effect that on exam was clearly confirmed to extend into the vagina. She was seen by Dr. Shi, one of the [facility] hospitalists, where tissue was obtained on pelvic exam and sent for pathology, but the tissue was necrotic and therefore nondiagnostic. She was counseled regarding concerns of malignancy on the nondiagnostic initial biopsy and to try to get a better understanding of the origin and extent of the tumor and she presents now for diagnostic surgical evaluation. FINDINGS: On exam under anesthesia in the resting position, there was large necrotic tissue prolapsing through the introitus. On speculum exam, the overtly necrotic portion was approximately 10 cm. The entire vaginal canal was filled with tissue that certainly clinically appeared to be tumor. There was tumor against the right proximal vaginal sidewall. Tumor replacing the cervix. I could not visibly see the cervix due to the large volume of tumor. I could not palpate a clear cervix, although clinically it still suggested this to be a tumor that had prolapsed through a dilated cervix, perhaps initially and now has grown through the cervix. The parametria is full, nodular and there is extension to the upper vagina. Clinically, this is certainly suggestive of a sarcoma. Frozen section biopsies obtained again showed necrotic tissue, but there was a small area of viable tissue. In speaking with Dr. 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 PROCEDURE: She was taken to the operating room, placed in the dorsal lithotomy position. After general endotracheal anesthesia was administered, time-out was undertaken. The planned procedure was reviewed and the patient was identified by site recognition and hospital ID [email or web address]. An exam under anesthesia was performed. There was a large malodorous necrotic tumor prolapsing through the introitus as described above. She was prepped and draped in a sterile fashion. Digital exam was such that about a 10 cm necrotic mass was from the remainder of the tumor and there was initially minimal to absent bleeding as the tissue was necrotic. Speculum was then introduced. The entire vaginal canal replaced with tumor with findings as described above. More necrotic tissue was removed and a ring forceps was used to grab large portions of tissue until viable appearing tissue was obtained to try to clarify diagnosis. Pelvic exam was performed thoroughly with findings as described above. More tissue was obtained, some for frozen section analysis, some for permanent analysis. Bleeding was fairly brisk. A very large vascular tumor. A pack was placed temporarily. Alejandro catheter was placed in the bladder. Once the hemostatic Surgicel SNoW agent was available, this was covered across the surface of the tumor after the lap pad was removed and then a speculum was introduced. The vaginal pack was secured very tightly circumferentially all around the edges of the tumor and across the face of the tumor lubricated with Premarin cream. A second vaginal pack was tied end-to-end and continued as part of the vaginal packing and then a third vaginal packing was tied end-to-end (2 sections with knots), lubricated with Premarin vaginal cream until the tumor was packed and now appeared to be hemostatic due to the vigorous packing. As this tumor was clearly coming from the central pelvis, the uterus or cervix extending into the vagina and due to the hemorrhage nature and need to place a Alejandro catheters, neither cystoscopy or proctoscopy were performed as exam did not reveal any obvious tumor approaching or invading into the posterior vaginal wall, into the anus, rectum or in the region of the bladder. She was returned to dorsal supine position. Consults were placed to interventional radiology for vascular embolization to control bleeding. A consult was also placed to Radiation Oncology for urgent initiation of hyperfractionated radiation to help control bleeding and given the diagnosis of tumor that is deemed not operable. I had the opportunity to speak with Dr. Carson milligan of radiation oncology. He was gracious to see her today and will move forward and as of the time of this dictation, I have yet to, but will place a call to interventional radiology as well. Barbie Bennett MD KLM/ANGIE , 08:20 AM , 08:53 AM
[2018-03-25] MEDS: DOCUSATE SODIUM 50 MG/SENNA 8.6 MG TAB PO SCH ×2 (09:00→21:15)
[2018-03-25] MEDS: predniSONE 20 MG TAB PO SCH ×2 (09:00→21:16)
[2018-03-25] MEDS: FLUoxetine HCL 20 MG CAP PO SCH ×2 (09:00→21:15)
[2018-03-25] MEDS: LOSARTAN 50 MG TAB PO SCH (09:00)
[2018-03-25] MEDS: HYDROCHLOROTHIAZIDE 25 MG TAB PO SCH (09:00)
[2018-03-25] MEDS: amLODIPine BESYLATE 5 MG TAB PO SCH (09:00)
[2018-03-25] MEDS ORDERED: DO NOT ADM ANY ANTICOAGULANT DRUGS PRN (10:45)
[2018-03-25] MEDS ORDERED: IODIXANOL 320 MG/ML 50 ML VIAL (for RAD SPEC) I-ARTERIAL ONE (11:53)
[2018-03-25] MEDS ORDERED: SODIUM CHLOR 0.9% 1000 ML INJ 1,000 ML IV SCH (12:10)
--- NOTE | 2018-03-25 12:12 | PD.RAD ---
Post Procedure Progress Note Pre Procedure Diagnosis: (1) Uterine mass Post Procedure Diagnosis: (1) Uterine mass Procedure Date: Mar 25, 2018 Supervising Radiologist: Julio Gayle Proceduralist/Assist: RT Annie(R) Anesthesia: Conscious Sedation Plan of Activity Patient to Unit: Nursing Unit Patient Condition: Good See PACS Report for procedural detail/treatment Vascular-Arterial Procedure Procedure 1 Procedure Site: Abdominal Procedure(s): Embolization (left uterine artery) Access Access Site(s): Right Femoral Artery Closure Site(s): Right manual pressure Julio Gayle MD Mar 25, 2018 12:12
[2018-03-25] MEDS ORDERED: ACETAMINOPHEN 325 MG TAB PO PRN (12:15)
--- NOTE | 2018-03-25 16:31 | HHI.PR ---
Subjective Remarks Patient just returned from or. Patient is somnolent, however wakes up easily. Daughter is at bedside who states that the patient had severe pain earlier. Patient denies chest pain or shortness of breath. Denies nausea, vomiting, abdominal pain is present but is controlled. Objective Vitals Vital Signs Date Time Temp Pulse Resp B/P (MAP) Pulse Ox O2 Delivery O2 Flow Rate FiO2 03/25/18 15:11 98.9 71 18 106/53 (70) 95 03/25/18 14:10 74 18 120/56 (77) 74 03/25/18 13:40 72 18 126/63 (84) 93 03/25/18 13:10 69 18 120/70 (87) 94 03/25/18 12:40 78 18 127/65 (85) 97 03/25/18 12:10 65 17 138/62 (87) 97 03/25/18 11:55 64 18 126/62 (83) 97 03/25/18 11:40 65 18 111/60 (77) 97 03/25/18 11:40 65 18 111/60 (77) 97 03/25/18 11:25 98.1 72 16 134/64 (87) 96 03/25/18 11:25 98.1 68 18 134/64 (87) 95 03/25/18 08:30 98.0 74 14 129/56 (80) 100 Nasal Cannula 2 03/25/18 08:15 74 14 142/65 (90) 99 Nasal Cannula 2 03/25/18 08:00 78 14 140/66 (90) 100 Nasal Cannula 2 03/25/18 07:58 98.0 78 14 152/67 (95) 100 Nasal Cannula 2 03/25/18 04:00 98.2 79 22 142/77 (98) 98 03/25/18 00:00 98.7 65 18 135/80 (98) 97 03/24/18 20:00 98.3 67 20 131/68 (89) 96 03/24/18 18:00 97.6 63 18 108/62 (77) I/O 03/24/18 03/24/18 03/24/18 03/25/18 03/25/18 03/25/18 06:59 14:59 22:59 06:59 14:59 22:59 Intake Total 1590 ml 400 ml Output Total 100 ml Balance 1590 ml 300 ml Intake Oral 1590 ml Other 400 ml Estimated Blood Loss 100 ml # Voids 2 4 2 # Bowel Movements 0 1 # Sanitary Pads 5 Pads 5 Pads 5 Pads Result Diagram: 03/24/18 0841 03/24/18 0841 Imaging Last Impressions Cervical Spine MRI 03/24/18 0000 Signed Impressions: Service Date/Time: Saturday, March 24, 2018 12:00 - CONCLUSION: 1. Mild disc osteophyte complex at C5-6 with mass effect on the anterior thecal sac and mild flattening of anterior cord with no abnormal signal. 2. Mild narrowing of the neural foramina bilaterally at C5-6. Oscar Barrientos MD Pelvis Ultrasound 03/19/18 1121 Signed Impressions: Service Date/Time: Monday, March 19, 2018 17:40 - CONCLUSION: Markedly abnormal uterus which is enlarged and contains heterogeneous material including fluid within the endometrial canal. I'm not able to clearly identify a mass, however, the lower uterine segment and cervix are poorly visualized on this study. Consider MRI of the pelvis with contrast as follow. Neither ovary visualized. Sotero Fernando Jr., MD Abdomen/Pelvis CT 03/17/18 1449 Signed Impressions: Service Date/Time: Saturday, March 17, 2018 15:47 - CONCLUSION: Uterus is distended with heterogeneous debris. The appearance would be most consistent with uterine obstruction as associated with endometrial or cervical carcinoma. Mario Goodrich MD Lumbar Spine CT 03/17/18 1004 Signed Impressions: Service Date/Time: Saturday, March 17, 2018 10:39 - CONCLUSION: Extensive degenerative changes radiographically significant spinal stenosis from L2-L4. Mejia Fuentes MD FACR Head CT 03/17/18 1004 Signed Impressions: Service Date/Time: Saturday, March 17, 2018 10:36 - CONCLUSION: 1. Senescent changes with mild periventricular small vessel ischemic white matter demyelination. 2. No acute intracranial abnormality. Jaxon Rivera MD Chest X-Ray 03/17/18 1004 Signed Impressions: Service Date/Time: Saturday, March 17, 2018 10:50 - CONCLUSION: No acute disease. Mejia Fuentes MD FACR Lumbar Spine MRI 03/17/18 0000 Signed Impressions: Service Date/Time: Saturday, March 17, 2018 13:57 - CONCLUSION: 1. Very limited postcontrast images due to motion degradation. No significant abnormal enhancement although evaluation of the conus is not possible. 2. Redemonstration of advanced multilevel degenerative spondylosis of the lumbar spine with multilevel severe spinal canal narrowing most prominently at L4-5 with near-complete effacement of the central canal. 3. Multilevel variable neural foraminal stenosis most prominently on the left at L4-5 and L5-S1. 4. Please see above for detailed description of each level. Jaxon Rivera MD Objective Remarks AAOx3, moderate distress due to pain Clear lungs BL S1S2 RRR, no MRG abdomen soft, moderately tender to palpation of hypogastric region, no rebound tenderness no edema in lower extremities + vaginal bleeding cranial nerves II through XII appear to be normal. Muscle strength is 5/5 in all extremities. Intact sensation in all extremities. Procedures none Medications and IVs Current Medications Medications (Trade) Dose Ordered Sig/Kareem Route Start Time Stop Time Status Last Admin (NS Flush) 2 ml UNSCH PRN IV FLUSH 03/17/18 18:00 (NS Flush) 2 ml BID IV FLUSH 03/17/18 21:00 03/24/18 22:06 (Zofran Inj) 4 mg Q6H PRN IVP 03/17/18 18:00 (Ambien) 5 mg HS PRN PO 03/17/18 18:00 03/22/18 21:32 (Narcan Inj) 0.4 mg UNSCH PRN IV PUSH 03/17/18 18:00 (Nargis-Colace) 1 tab BID PO 03/17/18 21:00 03/24/18 22:05 (Milk Of Magnesia Liq) 30 ml Q12H PRN PO 03/17/18 18:00 (Senokot) 17.2 mg Q12H PRN PO 03/17/18 18:00 (Dulcolax Supp) 10 mg DAILY PRN RECTAL 03/17/18 18:00 (Lactulose Liq) 30 ml DAILY PRN PO 03/17/18 18:00 (Synthroid) 112 mcg DAILY@0600 PO 03/18/18 06:00 03/24/18 05:20 (Cozaar) 100 mg DAILY PO 03/18/18 09:00 03/24/18 09:00 (Hydrodiuril) 25 mg DAILY PO 03/18/18 09:00 03/24/18 09:41 (Synthroid) 25 mcg DAILY@0600 PO 03/18/18 06:00 03/24/18 05:20 (Lipitor) 20 mg HS PO 03/18/18 21:00 03/24/18 22:06 (Aricept) 5 mg HS PO 03/18/18 21:00 03/24/18 22:05 (PROzac) 20 mg BID PO 03/18/18 21:00 03/24/18 22:06 (Glycerin Adult Supp) 2 gm BID PRN RECTAL 03/20/18 12:00 (Catapres) 0.1 mg Q6H PRN PO 03/20/18 12:15 03/24/18 05:20 (Deltasone) 20 mg BID PO 03/23/18 09:15 03/24/18 22:06 (Norvasc) 5 mg DAILY PO 03/24/18 09:00 03/24/18 09:43 ([place] 5-325 Mg) 1 tab Q4H PRN PO 03/23/18 15:45 03/25/18 13:00 ([place] 5-325 Mg) 2 tab Q4H PRN PO 03/23/18 15:45 03/24/18 22:05 (Morphine Inj) 2 mg Q3H PRN IV PUSH 03/23/18 15:45 03/25/18 15:26 Miscellaneous Information ALL NURSING DEPARTME... UNSCH PRN .XX 03/25/18 10:45 03/26/18 10:44 Sodium Chloride 1,000 ml @ 100 mls/hr Q10H IV 03/25/18 12:10 03/25/18 22:09 A/P Problem List: (1) Uterine infection ICD Code: N71.9 - Inflammatory disease of uterus, unspecified Status: Acute (2) Rhabdomyolysis ICD Code: M62.82 - Rhabdomyolysis Status: Acute (3) Back pain ICD Code: M54.9 - Dorsalgia, unspecified Status: Acute (4) Uterine mass ICD Code: N85.9 - Noninflammatory disorder of uterus, unspecified Status: Acute (5) Vaginal bleeding ICD Code: N93.9 - Abnormal uterine and vaginal bleeding, unspecified Status: Acute (6) Leukocytosis ICD Code: D72.829 - Elevated white blood cell count, unspecified (7) Sepsis ICD Code: A41.9 - Sepsis, unspecified organism (8) Central stenosis of spinal canal ICD Code: M48.00 - Spinal stenosis, site unspecified Assessment and Plan Uterine mass Uterine masses concerning for malignancy with elevated CA-19-9 and CEA 125. Uterine ultrasound shows widespread abnormality, MRI deferred due to today's obtaining of tissue sample. The patient status post oral doxycycline and Flagyl p.o. 1 and for presented infection as per previous records. Pathology showed a fragment of tissue almost entirely necrotic with several diagnostic possibilities. The patient has been seen by PM TECHNICIAN oncology and is going for exam under anesthesia on morning, 03/25/18 at 7 AM. Keep n.p.o. after midnight. No evidence of infection. 03/25 the patient underwent examination under anesthesia with removal of necrotic mass extending through the introitus approximately 10 cm in diameter with large multiple biopsies of tissue in the vagina and against the right upper vaginal sidewall. The patient also had vaginal packing and Alejandro catheter placement. Patient clearly had severe vaginal bleeding and had embolization of the left uterine artery. Follow-up pathology. Discontinue oral Percocet and placed on IV morphine 2 mg every 3 hours as needed for pain 1 - 4 and morphine 4 mg IV every 3 hours as needed for pain 5- 10. Benign paroxysmal positional vertigo Patient has history of MS which should be considered, however the onset of her symptoms are more consistent with BPPV Patient states she feels well today, vertigo is minimal 03/23 DC IV Solu-Medrol and start the patient on prednisone taper. Dizziness resolved. No recurrence of dizziness. Continue to taper prednisone. Hypertension Clonidine as needed, hydralazine as needed Continue home meds as baseline coverage 03/22 blood pressure has been persistently elevated into the 140s up to 190s. Continue as needed antihypertensive medications as above. Continue losartan and HCTZ. 03/23 blood pressure severely elevated into the 170 systolic. Continue losartan and hydrochlorothiazide. Add amlodipine 5 mg p.o. daily. 03/24 blood pressure with improved control. Continue losartan, hydrochlorothiazide and amlodipine. Mild dementia By daughter's report, continue supportive care Seems stable. Hypothyroidism On levothyroxine. Continue. Vaginal bleeding Coagulation profile normal. Hemoglobin dropped from 12.1-11.2. Continue to monitor CBC Transfuse as needed for hemoglobin less than 8 with a target of hemoglobin more than 9. 03/24 hemoglobin stable at 11.3. Low back pain spinal canal stenosis. Patient had imaging of the lumbar spine including lumbar spine CT which showed extensive degenerative changes radiographically, significant spinal stenosis from L2 through L4. MRI of the lumbar spine showed advanced multilevel degenerative spondylosis of the lumbar spine with multilevel severe spinal canal narrowing most prominently at L4-5 with near complete effacement of the central canal. Multilevel variable neural foraminal stenosis most prominent on the left at L4-5 and L5-S1. Patient started on IV Dilaudid for pain control. I will place on oral [place] and IV morphine for breakthrough pain. Consult neurosurgery. 03/24 appreciate neurosurgery consultation. Recommended conservative management with close observation of any signs of progressive radiculopathy or development of cauda equina syndrome. I will liberalize out of bed with assistance and continue physical therapy. Recommended intermittent monitoring of her lower extremity neurologic function ongoing basis. Continue pain control as above. Toxic encephalopathy Patient slightly somnolent after surgery due to effect of medication use or anesthesia. Monitor patient's neurological status. DVT prophylaxis As per previous records the patient supposedly on Lovenox, however upon review of active medication list, the patient is not on Lovenox. Discharge Planning Pending discharge PM TECHNICIAN/unk clearance. Problem Qualifiers (1) Rhabdomyolysis: Qualified Codes: T79.6XXA - Traumatic ischemia of muscle, initial encounter (2) Back pain: Qualified Codes: M54.5 - Low back pain; G89.29 - Other chronic pain (3) Leukocytosis: Qualified Codes: D72.829 - Elevated white blood cell count, unspecified (4) Sepsis: Qualified Codes: A41.9 - Sepsis, unspecified organism Howard Demarco MD Mar 25, 2018 16:31
[2018-03-25] MEDS: MORPHINE SULFATE 4 MG/ML INJ IV PUSH PRN (17:48)
[2018-03-25] MEDS: SODIUM CHLORIDE 0.9% FLUSH 10 ML FLUSH IV FLUSH SCH ×2 (17:50→21:16)
[2018-03-25] MEDS ORDERED: MORPHINE SULFATE 2 MG/ML SYRINGE IM PRN (18:00)
[2018-03-25] MEDS: DONEPEZIL HCL 5 MG TAB PO SCH (21:15)
[2018-03-25] MEDS: ATORVASTATIN 20 MG TAB PO SCH (21:15)
[2018-03-26] VITALS (7 sets, daily range): BP systolic 108–146; BP diastolic 56–92; PULSE 70–112; RESP 18–24; TEMP 96.5–99.1; O2SAT 95–99
[2018-03-26] MEDS: MORPHINE SULFATE 4 MG/ML INJ IV PUSH PRN ×5 (00:30→22:56)
[2018-03-26 05:28] LABS: AUTOMATED NEUTROPHIL # 52.1 TH/MM3 (1.8-7.7); HEMATOCRIT 29.5 % (35.0-46.0); HEMOGLOBIN 9.7 GM/DL (11.6-15.3); LYMPH % 2.2 % (9.0-44.0); LYMPHOCYTE # 1.2 TH/MM3 (1.0-4.8); MEAN CORPUSCULAR HGB CONC 32.9 % (32.0-36.0); MEAN PLATELET VOLUME 8.4 FL (7.0-11.0); MONO % 3.5 % (0.0-8.0); MONOCYTE # 1.9 TH/MM3 (0-0.9); NEUT % 94.3 % (16.0-70.0); PLATELET COUNT 362 TH/MM3 (150-450); RED BLOOD COUNT 3.14 MIL/MM3 (4.00-5.30); RED CELL DISTRIBUTION WIDTH 13.3 % (11.6-17.2); WHITE BLOOD COUNT 55.2 TH/MM3 (4.0-11.0)
[2018-03-26 05:53] LABS: BICARBONATE 27.7 MEQ/L (21.0-32.0); CALCIUM 9.1 MG/DL (8.5-10.1); CREATININE 0.63 MG/DL (0.50-1.00)
[2018-03-26] MEDS: LEVOTHYROXINE SODIUM 112 MCG TAB PO SCH (06:35)
[2018-03-26] MEDS: LEVOTHYROXINE SODIUM 25 MCG TAB PO SCH (06:35)
[2018-03-26 06:55] LABS: BANDS 5 % (0-6); LYMPHOCYTES 4 % (9-44); MONOCYTES 5 % (0-8); NEUTROPHIL # MANUAL DIFF 50.2 TH/MM3 (1.8-7.7); POLYS (SEG NEUTROPHILS) 86 % (16-70)
--- NOTE | 2018-03-26 08:01 | HHI.PR ---
Subjective . No new c/o, reports back and pelvic pain, pressure R.N. reported some blood showing through pad overnight Objective . afeb, vss h/h 9.7/29.5, plts 362, INR 1.1 alert, no change in baseline abdomen non-acute, non-tender vaginal pack & malik in place blood stained, no overt active bleeding Assessment/Plan . 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
[2018-03-26] MEDS: LOSARTAN 50 MG TAB PO SCH (08:11)
[2018-03-26] MEDS: predniSONE 20 MG TAB PO SCH ×2 (08:11→20:00)
[2018-03-26] MEDS: HYDROCHLOROTHIAZIDE 25 MG TAB PO SCH (08:11)
[2018-03-26] MEDS: amLODIPine BESYLATE 5 MG TAB PO SCH (08:11)
[2018-03-26] MEDS: FLUoxetine HCL 20 MG CAP PO SCH ×2 (08:13→20:00)
[2018-03-26] MEDS: SODIUM CHLORIDE 0.9% FLUSH 10 ML FLUSH IV FLUSH SCH ×2 (08:13→20:01)
[2018-03-26] MEDS: DOCUSATE SODIUM 50 MG/SENNA 8.6 MG TAB PO SCH ×2 (09:00→20:00)
--- NOTE | 2018-03-26 10:19 | RADRPT ---
EXAM DATE/TIME: 03/25/2018 08:42 [place] COMPARISON: No previous studies available for comparison. INDICATIONS : Patient presents with pelvic tumor in need of pelvic angiogram with possible embolization. MEDICAL HISTORY : HTN Dyslipidemia PAD Osteoarthritis Mild dementia Hypothyroidism SURGICAL HISTORY : Delonte Lazar ENCOUNTER: Initial ACUITY: 1 week PAIN SCORE: 10/10 LOCATION: Bilateral abdomen FLUORO TIME: 39.6 minutes IMAGE SERIES: 37 ACCESS SITE: Right Femoral artery SEDATION TIME: 120 minutes CONTRAST: 1.) 92 cc Visipaque (iodixanol) MEDICATION(S): 1.) 3.5 mg midazolam (Versed) IV 2.) 225 mcg fentanyl (Sublimaze) IV 3.) 200 mcg Nitroglycerine IV DEVICE(S): 1.) Left uterine artery tornado 035 4/3 (x5) embolic coil(s) 2.) Left uterine artery 12-7mm Gelfoam 3.) Left uterine artery 355-500 microns PVA 4.) Right common femoral artery Syvek pad PROCEDURE : 1. Ultrasound-guided puncture of the access site. 2. Conscious sedation with continuous EKG and Oximetry monitoring. 3. Angiography of the pelvis 4. Angiography of the left uterine artery 5. Angiography of the right uterine artery 6. Embolization of the left uterine artery third order branch 7. Coil embolization of terminal branches of the left internal iliac artery x2 The risks, benefits and alternatives to the procedure were explained and verbal and written consent w as obtained. The site was prepped in sterile fashion. Full sterile technique was used, including ca p, mask, sterile gloves and gown and a large sterile sheet. Hand hygiene and 2% chlorhexidine and/or betadine/alcohol prep was utilized per protocol for cutaneous antisepsis. Sterile gel and sterile p robe cover were utilized for ultrasound guidance. The skin and subcutaneous tissues were infiltrated with local anesthetic solution. With ultrasound and fluoroscopic guidance the selected artery was punctured and a vascular sheath was placed An omni-flush catheter was placed the abdominal aorta and digital abdominal aortogram was performed i n the AP projection. This demonstrates a large gonadal artery on the right side supplying the mass in the superior and right lateral aspect. Small branches are seen in the right side of the pelvis and t here is a larger left uterine artery present. The left internal iliac artery was catheterized and subsequent to this the uterine artery was seen. D istal branches of the artery were embolized with coils to direct flow towards the uterine vessels. Em bolization was performed using PVA and Gelfoam to complete stasis. Followup angiography demonstrates no antegrade flow. Catheterization of the right uterine artery demonstrates only small vessels with no large vascular pe dicle identified and embolization was not performed. The gonadal artery could not be catheterized. The puncture site was closed with manual pressure and hemostasis was obtained. The patient tolerated the procedure well and there were no complications. Conscious sedation was performed with the prescribed dosages and duration as above in the presence of an independent trained radiology nurse to assist in the monitoring of the patient. EKG and oximetry remained stable throughout the procedure. CONCLUSION: Uncomplicated embolization of the left uterine artery Julio Gayle MD on March 26, 2018 at 9:59 Board Certified Radiologist. This report was verified electronically.
--- NOTE | 2018-03-26 16:14 | HHI.PR ---
Subjective Remarks Patient somewhat somnolent when I came in but does wake up. Denies any pain. Daughter at bedside and states that she is going for her radiation therapy later this afternoon. Apparently she did work with physical therapy when she got up blood came out from her vagina. Objective Vitals Vital Signs Date Time Temp Pulse Resp B/P (MAP) Pulse Ox O2 Delivery O2 Flow Rate FiO2 03/26/18 13:16 98.4 79 18 146/64 (91) 95 03/26/18 08:00 98.6 89 18 139/67 (91) 03/26/18 04:00 99.1 70 20 108/56 (73) 98 03/26/18 00:00 98.5 86 20 137/66 (89) 98 03/25/18 20:00 99.7 83 18 135/77 (96) 94 03/25/18 18:10 97.9 82 18 115/56 (75) 94 03/25/18 18:00 18 I/O 03/25/18 03/25/18 03/25/18 03/26/18 03/26/18 03/26/18 07:00 15:00 23:00 07:00 15:00 23:00 Intake Total 400 ml Output Total 100 ml 600 ml Balance 300 ml -600 ml Other 400 ml Output Urine Total 600 ml Estimated Blood Loss 100 ml # Voids 2 # Bowel Movements 1 # Sanitary Pads 5 Pads 5 Pads Result Diagram: 03/26/18 0401 03/26/18 0401 Imaging Last Impressions Angiography 03/25/18 0000 Signed Impressions: Service Date/Time: February 08:42 - CONCLUSION: Uncomplicated embolization of the left uterine artery Julio Gayle MD Cervical Spine MRI 03/24/18 0000 Signed Impressions: Service Date/Time: Saturday, March 24, 2018 12:00 - CONCLUSION: 1. Mild disc osteophyte complex at C5-6 with mass effect on the anterior thecal sac and mild flattening of anterior cord with no abnormal signal. 2. Mild narrowing of the neural foramina bilaterally at C5-6. Oscar Barrientos MD Pelvis Ultrasound 03/19/18 1121 Signed Impressions: Service Date/Time: Monday, March 19, 2018 17:40 - CONCLUSION: Markedly abnormal uterus which is enlarged and contains heterogeneous material including fluid within the endometrial canal. I'm not able to clearly identify a mass, however, the lower uterine segment and cervix are poorly visualized on this study. Consider MRI of the pelvis with contrast as follow. Neither ovary visualized. Sotero Fernando Jr., MD Abdomen/Pelvis CT 03/17/18 1449 Signed Impressions: Service Date/Time: Saturday, March 17, 2018 15:47 - CONCLUSION: Uterus is distended with heterogeneous debris. The appearance would be most consistent with uterine obstruction as associated with endometrial or cervical carcinoma. Mario Goodrich MD Lumbar Spine CT 03/17/18 1004 Signed Impressions: Service Date/Time: Saturday, March 17, 2018 10:39 - CONCLUSION: Extensive degenerative changes radiographically significant spinal stenosis from L2-L4. Mejia Fuentes MD FACR Head CT 03/17/18 1004 Signed Impressions: Service Date/Time: Saturday, March 17, 2018 10:36 - CONCLUSION: 1. Senescent changes with mild periventricular small vessel ischemic white matter demyelination. 2. No acute intracranial abnormality. Jaxon Rivera MD Chest X-Ray 03/17/18 1004 Signed Impressions: Service Date/Time: Saturday, March 17, 2018 10:50 - CONCLUSION: No acute disease. Mejia Fuentes MD FACR Lumbar Spine MRI 03/17/18 0000 Signed Impressions: Service Date/Time: Saturday, March 17, 2018 13:57 - CONCLUSION: 1. Very limited postcontrast images due to motion degradation. No significant abnormal enhancement although evaluation of the conus is not possible. 2. Redemonstration of advanced multilevel degenerative spondylosis of the lumbar spine with multilevel severe spinal canal narrowing most prominently at L4-5 with near-complete effacement of the central canal. 3. Multilevel variable neural foraminal stenosis most prominently on the left at L4-5 and L5-S1. 4. Please see above for detailed description of each level. Jaxon Rivera MD Objective Remarks somnolent but wakes up easily. Clear lungs BL RRR, no MRG abdomen soft, moderately tender to palpation of hypogastric region, no rebound tenderness moves ext upon request Procedures none A/P Problem List: (1) Uterine infection ICD Code: N71.9 - Inflammatory disease of uterus, unspecified Status: Acute (2) Rhabdomyolysis ICD Code: M62.82 - Rhabdomyolysis Status: Acute (3) Back pain ICD Code: M54.9 - Dorsalgia, unspecified Status: Acute (4) Uterine mass ICD Code: N85.9 - Noninflammatory disorder of uterus, unspecified Status: Acute (5) Vaginal bleeding ICD Code: N93.9 - Abnormal uterine and vaginal bleeding, unspecified Status: Acute (6) Leukocytosis ICD Code: D72.829 - Elevated white blood cell count, unspecified (7) Sepsis ICD Code: A41.9 - Sepsis, unspecified organism (8) Central stenosis of spinal canal ICD Code: M48.00 - Spinal stenosis, site unspecified Assessment and Plan Uterine masses concerning for malignancy with elevated CA-19-9 and CEA 125. Uterine ultrasound shows widespread abnormality, MRI deferred due to today's obtaining of tissue sample. The patient status post oral doxycycline and Flagyl p.o. 1 and for presented infection as per previous records. Pathology showed a fragment of tissue almost entirely necrotic with several diagnostic possibilities. [facility] oncology following s/p examination under anesthesia with removal of necrotic mass extending through the introitus approximately 10 cm in diameter with large multiple biopsies of tissue in the vagina and against the right upper vaginal sidewall. The patient also had vaginal packing and Alejandro catheter placement. Patient clearly had severe vaginal bleeding and had embolization of the left uterine artery. Follow-up pathology. Discontinue oral Percocet and placed on IV morphine 2 mg every 3 hours as needed for pain 1 - 4 and morphine 4 mg IV every 3 hours as needed for pain 5- 10. Benign paroxysmal positional vertigo Patient has history of MS which should be considered, however the onset of her symptoms are more consistent with BPPV Stable today, no complaints. s/p IV Solu-Medrol and patient on prednisone taper. Dizziness resolved. No recurrence of dizziness. Continue to taper prednisone. Hypertension Clonidine as needed, hydralazine as needed Continue home meds as baseline coverage. Continue losartan and hydrochlorothiazide and amlodipine 5 mg p.o. daily. Mild dementia By daughter's report, continue supportive care Seems stable. Hypothyroidism On levothyroxine. Continue. Vaginal bleeding Coagulation profile normal. Hemoglobin dropped from 12.1-11.2. Continue to monitor CBC Transfuse as needed for hemoglobin less than 8 with a target of hemoglobin more than 9. Repeat H&H this afternoon. And monitor in the morning. Transfuse as needed Low back pain spinal canal stenosis. Patient had imaging of the lumbar spine including lumbar spine CT which showed extensive degenerative changes radiographically, significant spinal stenosis from L2 through L4. MRI of the lumbar spine showed advanced multilevel degenerative spondylosis of the lumbar spine with multilevel severe spinal canal narrowing most prominently at L4-5 with near complete effacement of the central canal. Multilevel variable neural foraminal stenosis most prominent on the left at L4-5 and L5-S1. Continue pain control appreciate neurosurgery consultation. Recommended conservative management with close observation of any signs of progressive radiculopathy or development of cauda equina syndrome. out of bed with assistance and continue physical therapy. Recommended intermittent monitoring of her lower extremity neurologic function ongoing basis. Continue pain control as above. Toxic encephalopathy Monitor patient's neurological status. DVT prophylaxis: SCDs. Avoid chemical prophylaxis due to bleeding Discharge Planning Pending [facility] oncology clearance \Monitor H&H Problem Qualifiers (1) Rhabdomyolysis: Qualified Codes: T79.6XXA - Traumatic ischemia of muscle, initial encounter (2) Back pain: Qualified Codes: M54.5 - Low back pain; G89.29 - Other chronic pain (3) Leukocytosis: Qualified Codes: D72.829 - Elevated white blood cell count, unspecified (4) Sepsis: Qualified Codes: A41.9 - Sepsis, unspecified organism Aracelis Avery MD Mar 26, 2018 16:14
[2018-03-26] MEDS: DONEPEZIL HCL 5 MG TAB PO SCH (20:00)
[2018-03-26] MEDS: ATORVASTATIN 20 MG TAB PO SCH (20:00)
[2018-03-26 21:13] LABS: HEMATOCRIT 28.3 % (35.0-46.0); HEMOGLOBIN 9.5 GM/DL (11.6-15.3)
[2018-03-27] VITALS (8 sets, daily range): BP systolic 124–165; BP diastolic 65–74; PULSE 80–97; RESP 16–18; TEMP 98.3–98.6; O2SAT 91–96
[2018-03-27] MEDS: MORPHINE SULFATE 4 MG/ML INJ IV PUSH PRN ×5 (03:31→20:15)
[2018-03-27 04:35] LABS: AUTOMATED NEUTROPHIL # 52.3 TH/MM3 (1.8-7.7); BASOPHIL # 0.1 TH/MM3 (0-0.2); BASOPHIL % 0.1 % (0.0-2.0); HEMATOCRIT 26.7 % (35.0-46.0); LYMPH % 1.9 % (9.0-44.0); LYMPHOCYTE # 1.1 TH/MM3 (1.0-4.8); MEAN CELL VOLUME 92.2 FL (80.0-100.0); MEAN CORPUSCULAR HEMOGLOBIN 30.9 PG (27.0-34.0); MEAN CORPUSCULAR HGB CONC 33.6 % (32.0-36.0); MONO % 3.4 % (0.0-8.0); MONOCYTE # 1.9 TH/MM3 (0-0.9); NEUT % 94.6 % (16.0-70.0); PLATELET COUNT 423 TH/MM3 (150-450); RED CELL DISTRIBUTION WIDTH 12.9 % (11.6-17.2); WHITE BLOOD COUNT 55.3 TH/MM3 (4.0-11.0)
[2018-03-27] MEDS: LEVOTHYROXINE SODIUM 25 MCG TAB PO SCH (04:44)
[2018-03-27] MEDS: LEVOTHYROXINE SODIUM 112 MCG TAB PO SCH (04:44)
[2018-03-27 04:50] LABS: BICARBONATE 29.1 MEQ/L (21.0-32.0); CALCIUM 9.7 MG/DL (8.5-10.1); CREATININE 0.68 MG/DL (0.50-1.00)
[2018-03-27 05:39] LABS: BANDS 2 % (0-6); LYMPHOCYTES 1 % (9-44); MONOCYTES 3 % (0-8); NEUTROPHIL # MANUAL DIFF 53.1 TH/MM3 (1.8-7.7); POLYS (SEG NEUTROPHILS) 94 % (16-70)
--- NOTE | 2018-03-27 07:17 | HHI.PR ---
Subjective Remarks Patient seen and examined this morning. Vitals stable afebrile. Patient reports her anxiety is bothering her. Thinks her doctor increased her prozac. Endorses some lower abdominal pain. Says vaginal bleeding has decreased. During exam she falls asleep. Objective Vital Signs Date Time Temp Pulse Resp B/P (MAP) Pulse Ox O2 Delivery O2 Flow Rate FiO2 03/27/18 04:00 98.3 80 18 143/69 (93) 96 03/27/18 00:00 98.4 80 18 148/69 (95) 91 03/26/18 20:00 96.5 82 18 120/72 (88) 97 03/26/18 17:25 20 03/26/18 17:00 97.9 88 18 114/64 (81) 98 03/26/18 13:16 98.4 79 18 146/64 (91) 95 03/26/18 08:00 98.6 89 18 139/67 (91) I/O 03/26/18 03/26/18 03/26/18 03/27/18 03/27/18 03/27/18 07:00 15:00 23:00 07:00 15:00 23:00 Intake Total 120 ml Output Total 600 ml 400 ml 1550 ml Balance -600 ml -400 ml -1430 ml Intake Oral 120 ml Output Urine Total 600 ml 400 ml 1550 ml # Sanitary Pads 3 Pads 1 Pads 1 Pads 1 Pads Result Diagram: 03/27/18 0417 03/27/18 0417 Imaging Last Impressions Angiography 03/25/18 0000 Signed Impressions: Service Date/Time: February 08:42 - CONCLUSION: Uncomplicated embolization of the left uterine artery Julio Gayle MD Cervical Spine MRI 03/24/18 0000 Signed Impressions: Service Date/Time: Saturday, March 24, 2018 12:00 - CONCLUSION: 1. Mild disc osteophyte complex at C5-6 with mass effect on the anterior thecal sac and mild flattening of anterior cord with no abnormal signal. 2. Mild narrowing of the neural foramina bilaterally at C5-6. Oscar Barrientos MD Pelvis Ultrasound 03/19/18 1121 Signed Impressions: Service Date/Time: Monday, March 19, 2018 17:40 - CONCLUSION: Markedly abnormal uterus which is enlarged and contains heterogeneous material including fluid within the endometrial canal. I'm not able to clearly identify a mass, however, the lower uterine segment and cervix are poorly visualized on this study. Consider MRI of the pelvis with contrast as follow. Neither ovary visualized. Sotero Fernando Jr., MD Abdomen/Pelvis CT 03/17/18 1449 Signed Impressions: Service Date/Time: Saturday, March 17, 2018 15:47 - CONCLUSION: Uterus is distended with heterogeneous debris. The appearance would be most consistent with uterine obstruction as associated with endometrial or cervical carcinoma. Mario Goodrich MD Lumbar Spine CT 03/17/18 1004 Signed Impressions: Service Date/Time: Saturday, March 17, 2018 10:39 - CONCLUSION: Extensive degenerative changes radiographically significant spinal stenosis from L2-L4. Mejia Fuentes MD FACR Head CT 03/17/18 1004 Signed Impressions: Service Date/Time: Saturday, March 17, 2018 10:36 - CONCLUSION: 1. Senescent changes with mild periventricular small vessel ischemic white matter demyelination. 2. No acute intracranial abnormality. Jaxon Rivera MD Chest X-Ray 03/17/18 1004 Signed Impressions: Service Date/Time: Saturday, March 17, 2018 10:50 - CONCLUSION: No acute disease. Mejia Fuentes MD FACR Lumbar Spine MRI 03/17/18 0000 Signed Impressions: Service Date/Time: Saturday, March 17, 2018 13:57 - CONCLUSION: 1. Very limited postcontrast images due to motion degradation. No significant abnormal enhancement although evaluation of the conus is not possible. 2. Redemonstration of advanced multilevel degenerative spondylosis of the lumbar spine with multilevel severe spinal canal narrowing most prominently at L4-5 with near-complete effacement of the central canal. 3. Multilevel variable neural foraminal stenosis most prominently on the left at L4-5 and L5-S1. 4. Please see above for detailed description of each level. Jaxon Rivera MD Objective Remarks GENERAL: Well-appearing, no acute distress SKIN: Warm and dry. HEAD: Normocephalic. EYES: No scleral icterus. No injection or drainage. NECK: Supple, trachea midline. No JVD or lymphadenopathy. CARDIOVASCULAR: Regular rate and rhythm without murmurs, gallops, or rubs. RESPIRATORY: Breath sounds equal bilaterally. No accessory muscle use. GASTROINTESTINAL: Abdomen soft, tenderness to palpation bilaterally lower quadrants. MUSCULOSKELETAL: No cyanosis, or edema. A/P Problem List: (1) Back pain ICD Code: M54.9 - Dorsalgia, unspecified Status: Acute (2) Uterine mass ICD Code: N85.9 - Noninflammatory disorder of uterus, unspecified Status: Acute (3) Vaginal bleeding ICD Code: N93.9 - Abnormal uterine and vaginal bleeding, unspecified Status: Acute (4) Central stenosis of spinal canal ICD Code: M48.00 - Spinal stenosis, site unspecified Assessment and Plan This is a 72-year-old female patient who initially presented to the ER after a fall, thought to be due to multiple sclerosis versus autoimmune disease. She was subsequently noted to have vaginal bleeding during her MRI, a CT was performed which showed heterogeneous degrees. 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 Uterine mass with vaginal bleeding CA-19-9 and CEA 125 elevated See imaging above, ultrasound shows widespread abnormality The patient has been seen and evaluated by Dr. 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 She is status post arterial embolization. XRT forthcoming. Dr. Bennett has recommended palliative care. Pathology shows adenocarcinoma of endometrium, the possibility of carcinosarcoma has not been excluded. Hb today 03/27 is 8, will give one unit to keep above 9 given BPV Initial concern was for MS exacerbation due to questionable history of MS. Symptoms most consistent with BPPV at this time. Her dizziness has resolved. She is status post IV Solu-Medrol and currently is on a prednisone taper. Currently on prednisone 20 mg twice daily--> will switch to daily Hypertension Continue patient's home meds Dementia Currently at baseline per patient's daughter Hypothyroidism Continue patient's home levothyroxine Low back pain/lumbar stenosis Seen and evaluated by neurosurgery. Recommend out of bed with assistance, continue with PT. Patient to be watched closely for progressive radiculopathy and development of cauda equina syndrome. See imaging above. DVT prophylaxis with bilateral SCDs, hold chemical prophylaxis given vaginal bleeding. Hospice was consulted on 03/26 Discharge Planning D/C pending stabilization of Hb Give one unit today, repeat Hb/hct tomorrow, if stable may dc Problem Qualifiers (1) Back pain: Qualified Codes: M54.5 - Low back pain; G89.29 - Other chronic pain Muna Clark MD Mar 27, 2018 07:17
[2018-03-27] MEDS: amLODIPine BESYLATE 5 MG TAB PO SCH (09:13)
[2018-03-27] MEDS: FLUoxetine HCL 20 MG CAP PO SCH ×2 (09:13→20:14)
[2018-03-27] MEDS: LOSARTAN 50 MG TAB PO SCH (09:13)
[2018-03-27] MEDS: DOCUSATE SODIUM 50 MG/SENNA 8.6 MG TAB PO SCH ×2 (09:13→20:15)
[2018-03-27] MEDS: predniSONE 20 MG TAB PO SCH (09:13)
[2018-03-27] MEDS: HYDROCHLOROTHIAZIDE 25 MG TAB PO SCH (09:13)
[2018-03-27] MEDS: SODIUM CHLORIDE 0.9% FLUSH 10 ML FLUSH IV FLUSH SCH ×2 (09:15→20:15)
[2018-03-27] MEDS ORDERED: SODIUM CHLOR 0.9% 250 ML INJ 250 ML IV ONE (10:30)
[2018-03-27 11:19] LABS: HEMATOCRIT 28.4 % (35.0-46.0); HEMOGLOBIN 9.4 GM/DL (11.6-15.3)
[2018-03-27] MEDS: ATORVASTATIN 20 MG TAB PO SCH (20:14)
[2018-03-27] MEDS: DONEPEZIL HCL 5 MG TAB PO SCH (20:15)
[2018-03-28 00:04] VITALS: BP 124/65; PULSE 82; RESP 20; TEMP 98.6; O2SAT 95
[2018-03-28] MEDS: MORPHINE SULFATE 4 MG/ML INJ IV PUSH PRN ×3 (00:12→08:28)
[2018-03-28] MEDS: LEVOTHYROXINE SODIUM 25 MCG TAB PO SCH (04:05)
[2018-03-28] MEDS: LEVOTHYROXINE SODIUM 112 MCG TAB PO SCH (04:05)
[2018-03-28 04:10] VITALS: BP 146/72; PULSE 72; RESP 16; TEMP 98.6; O2SAT 96
--- NOTE | 2018-03-28 06:44 | HHI.PR ---
Subjective Remarks Patient seen and examined this morning. Vitals stable afebrile. Feels well, tolerated her breakfast. States when she walks to the bathroom she feels dizzy. States she going to [employer] when she leaves here which is where her daughter works. Objective Vital Signs Date Time Temp Pulse Resp B/P (MAP) Pulse Ox O2 Delivery O2 Flow Rate FiO2 03/28/18 04:12 16 03/28/18 04:10 98.6 72 16 146/72 (96) 96 03/28/18 00:04 98.6 82 20 124/65 (84) 95 03/27/18 20:19 98.6 87 18 133/67 (89) 96 03/27/18 16:21 98.3 80 18 124/67 (86) 96 03/27/18 12:36 98.4 88 16 139/65 (89) 94 03/27/18 11:53 98.6 97 16 155/74 (101) 95 03/27/18 08:01 98.4 92 18 165/71 (102) 96 I/O 03/27/18 03/27/18 03/27/18 03/28/18 03/28/18 03/28/18 07:00 15:00 23:00 07:00 15:00 23:00 Intake Total 120 ml 840 ml Output Total 1550 ml 675 ml Balance -1430 ml 165 ml Intake Oral 120 ml 840 ml Output Urine Total 1550 ml 675 ml # Bowel Movements 1 # Sanitary Pads 1 Pads 1 Pads Result Diagram: 03/27/18 1057 03/27/18 0417 Imaging Last Impressions Angiography 03/25/18 0000 Signed Impressions: Service Date/Time: February 08:42 - CONCLUSION: Uncomplicated embolization of the left uterine artery Julio Gayle MD Cervical Spine MRI 03/24/18 0000 Signed Impressions: Service Date/Time: Saturday, March 24, 2018 12:00 - CONCLUSION: 1. Mild disc osteophyte complex at C5-6 with mass effect on the anterior thecal sac and mild flattening of anterior cord with no abnormal signal. 2. Mild narrowing of the neural foramina bilaterally at C5-6. Oscar Barrientos MD Pelvis Ultrasound 03/19/18 1121 Signed Impressions: Service Date/Time: Monday, March 19, 2018 17:40 - CONCLUSION: Markedly abnormal uterus which is enlarged and contains heterogeneous material including fluid within the endometrial canal. I'm not able to clearly identify a mass, however, the lower uterine segment and cervix are poorly visualized on this study. Consider MRI of the pelvis with contrast as follow. Neither ovary visualized. Sotero Fernando Jr., MD Abdomen/Pelvis CT 03/17/18 1449 Signed Impressions: Service Date/Time: Saturday, March 17, 2018 15:47 - CONCLUSION: Uterus is distended with heterogeneous debris. The appearance would be most consistent with uterine obstruction as associated with endometrial or cervical carcinoma. Mario Goodrich MD Lumbar Spine CT 03/17/18 1004 Signed Impressions: Service Date/Time: Saturday, March 17, 2018 10:39 - CONCLUSION: Extensive degenerative changes radiographically significant spinal stenosis from L2-L4. Mejia Fuentes MD FACR Head CT 03/17/18 1004 Signed Impressions: Service Date/Time: Saturday, March 17, 2018 10:36 - CONCLUSION: 1. Senescent changes with mild periventricular small vessel ischemic white matter demyelination. 2. No acute intracranial abnormality. Jaxon Rivera MD Chest X-Ray 03/17/18 1004 Signed Impressions: Service Date/Time: Saturday, March 17, 2018 10:50 - CONCLUSION: No acute disease. Mejia Fuentes MD FACR Lumbar Spine MRI 03/17/18 0000 Signed Impressions: Service Date/Time: Saturday, March 17, 2018 13:57 - CONCLUSION: 1. Very limited postcontrast images due to motion degradation. No significant abnormal enhancement although evaluation of the conus is not possible. 2. Redemonstration of advanced multilevel degenerative spondylosis of the lumbar spine with multilevel severe spinal canal narrowing most prominently at L4-5 with near-complete effacement of the central canal. 3. Multilevel variable neural foraminal stenosis most prominently on the left at L4-5 and L5-S1. 4. Please see above for detailed description of each level. Jaxon Rivera MD Objective Remarks GENERAL: Well-appearing, no acute distress SKIN: Warm and dry. HEAD: Normocephalic. EYES: No scleral icterus. No injection or drainage. NECK: Supple, trachea midline. No JVD or lymphadenopathy. CARDIOVASCULAR: Regular rate and rhythm without murmurs, gallops, or rubs. RESPIRATORY: Breath sounds equal bilaterally. No accessory muscle use. GASTROINTESTINAL: Abdomen soft, tenderness to palpation bilaterally lower quadrants. MUSCULOSKELETAL: No cyanosis, or edema. A/P Problem List: (1) Back pain ICD Code: M54.9 - Dorsalgia, unspecified Status: Acute (2) Uterine mass ICD Code: N85.9 - Noninflammatory disorder of uterus, unspecified Status: Acute (3) Vaginal bleeding ICD Code: N93.9 - Abnormal uterine and vaginal bleeding, unspecified Status: Acute (4) Central stenosis of spinal canal ICD Code: M48.00 - Spinal stenosis, site unspecified Assessment and Plan This is a 72-year-old female patient who initially presented to the ER after a fall, thought to be due to multiple sclerosis versus autoimmune disease. She was subsequently noted to have vaginal bleeding during her MRI, a CT was performed which showed heterogeneous degrees. 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 Uterine mass with vaginal bleeding CA-19-9 and CEA 125 elevated See imaging above, ultrasound shows widespread abnormality The patient has been seen and evaluated by Dr. 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 She is status post arterial embolization. XRT forthcoming. Dr. Bennett has recommended palliative care. Pathology shows adenocarcinoma of endometrium, the possibility of carcinosarcoma has not been excluded. BPV Initial concern was for MS exacerbation due to questionable history of MS. Symptoms most consistent with BPPV at this time. Her dizziness has resolved. She is status post IV Solu-Medrol and currently is on a prednisone taper. Currently on prednisone 20 mg daily (tappered down from BID on 03/27) Hypertension Continue patient's home meds Dementia Currently at baseline per patient's daughter Hypothyroidism Continue patient's home levothyroxine Low back pain/lumbar stenosis Seen and evaluated by neurosurgery. Recommend out of bed with assistance, continue with PT. Patient to be watched closely for progressive radiculopathy and development of cauda equina syndrome. See imaging above. DVT prophylaxis with bilateral SCDs, hold chemical prophylaxis given vaginal bleeding. Hospice was consulted on 03/26, she is in their system Discharge Planning Neurosurgery has cleared patient Will have to find out if any further interventions from Dr. Bennett while in hospital, otherwise d/c to SNF once placed. D/C to Problem Qualifiers (1) Back pain: Qualified Codes: M54.5 - Low back pain; G89.29 - Other chronic pain Muna Clark MD Mar 28, 2018 06:44
[2018-03-28 07:01] LABS: AUTOMATED NEUTROPHIL # 37.7 TH/MM3 (1.8-7.7); EOSINOPHIL % 0.1 % (0.0-4.0); HEMATOCRIT 25.7 % (35.0-46.0); HEMOGLOBIN 8.7 GM/DL (11.6-15.3); LYMPH % 4.5 % (9.0-44.0); LYMPHOCYTE # 1.9 TH/MM3 (1.0-4.8); MEAN CELL VOLUME 93.1 FL (80.0-100.0); MEAN CORPUSCULAR HEMOGLOBIN 31.3 PG (27.0-34.0); MEAN CORPUSCULAR HGB CONC 33.6 % (32.0-36.0); MEAN PLATELET VOLUME 8.3 FL (7.0-11.0); MONO % 5.3 % (0.0-8.0); MONOCYTE # 2.2 TH/MM3 (0-0.9); NEUT % 90.1 % (16.0-70.0); PLATELET COUNT 470 TH/MM3 (150-450); RED BLOOD COUNT 2.77 MIL/MM3 (4.00-5.30); RED CELL DISTRIBUTION WIDTH 13.3 % (11.6-17.2); WHITE BLOOD COUNT 41.9 TH/MM3 (4.0-11.0)
[2018-03-28 07:25] LABS: BICARBONATE 29.3 MEQ/L (21.0-32.0); CALCIUM 9.6 MG/DL (8.5-10.1); CREATININE 0.58 MG/DL (0.50-1.00)
[2018-03-28 08:25] LABS: BANDS 6 % (0-6); LYMPHOCYTES 12 % (9-44); MONOCYTES 4 % (0-8); NEUTROPHIL # MANUAL DIFF 35.2 TH/MM3 (1.8-7.7); POLYS (SEG NEUTROPHILS) 78 % (16-70)
[2018-03-28] MEDS: LOSARTAN 50 MG TAB PO SCH (08:27)
[2018-03-28] MEDS: FLUoxetine HCL 20 MG CAP PO SCH ×2 (08:27→21:10)
[2018-03-28] MEDS: SODIUM CHLORIDE 0.9% FLUSH 10 ML FLUSH IV FLUSH SCH ×2 (08:28→21:10)
[2018-03-28] MEDS: predniSONE 20 MG TAB PO SCH (08:28)
[2018-03-28] MEDS: amLODIPine BESYLATE 5 MG TAB PO SCH (08:28)
[2018-03-28] MEDS: DOCUSATE SODIUM 50 MG/SENNA 8.6 MG TAB PO SCH ×2 (08:28→21:00)
[2018-03-28] MEDS: HYDROCHLOROTHIAZIDE 25 MG TAB PO SCH (08:28)
[2018-03-28 08:30] VITALS: BP 133/60; PULSE 91; RESP 18; TEMP 98; O2SAT 96
[2018-03-28 11:59] VITALS: BP 147/65; PULSE 95; RESP 20; TEMP 98.2; O2SAT 96
[2018-03-28] MEDS: oxyCODONE/ACETAMINOPHEN 7.5 MG/325 MG TAB PO PRN ×3 (12:01→22:21)
[2018-03-28 16:20] VITALS: BP 128/62; PULSE 92; RESP 18; TEMP 98.8; O2SAT 93
[2018-03-28 21:06] VITALS: BP 138/69; PULSE 93; RESP 16; TEMP 99.1; O2SAT 97
[2018-03-28] MEDS: ATORVASTATIN 20 MG TAB PO SCH (21:10)
[2018-03-28] MEDS: DONEPEZIL HCL 5 MG TAB PO SCH (21:10)
[2018-03-29] MEDS ORDERED: BENZOCAINE 6 MG/MENTHOL 10 MG LOZENGE BUCCAL PRN (00:15)
[2018-03-29] MEDS ORDERED: guaiFENesin SOLUTION 200 MG/10 ML CUP PO PRN (00:15)
[2018-03-29 00:20] VITALS: BP 125/63; PULSE 87; RESP 16; TEMP 98.3; O2SAT 96
[2018-03-29 04:46] VITALS: BP 129/69; PULSE 73; RESP 19; TEMP 98.4; O2SAT 96
[2018-03-29] MEDS: LEVOTHYROXINE SODIUM 112 MCG TAB PO SCH (04:50)
[2018-03-29] MEDS: LEVOTHYROXINE SODIUM 25 MCG TAB PO SCH (04:50)
[2018-03-29] MEDS: oxyCODONE/ACETAMINOPHEN 7.5 MG/325 MG TAB PO PRN ×4 (04:51→21:01)
[2018-03-29] MEDS: HYDROCHLOROTHIAZIDE 25 MG TAB PO SCH (08:12)
[2018-03-29] MEDS: amLODIPine BESYLATE 5 MG TAB PO SCH (08:12)
[2018-03-29] MEDS: FLUoxetine HCL 20 MG CAP PO SCH ×2 (08:13→21:01)
[2018-03-29] MEDS: DOCUSATE SODIUM 50 MG/SENNA 8.6 MG TAB PO SCH ×2 (08:13→21:01)
[2018-03-29] MEDS: LOSARTAN 50 MG TAB PO SCH (08:13)
[2018-03-29] MEDS: predniSONE 20 MG TAB PO SCH (08:13)
--- NOTE | 2018-03-29 08:14 | PD.ONC.PN ---
Subjective Subjective Remarks patient is resting with daughter at bedside states she started radiation last week and is scheduled to continue today with a total of 10 treatments Her daughter tells me her mother will be going to [facility] in [place] where she works in the next day or so. Objective Data Date Time Temp Pulse Resp B/P (MAP) Pulse Ox O2 Delivery O2 Flow Rate FiO2 03/29/18 05:51 16 03/29/18 04:46 98.4 73 19 129/69 (89) 96 03/29/18 00:20 98.3 87 16 125/63 (83) 96 03/28/18 21:06 99.1 93 16 138/69 (92) 97 03/28/18 16:20 98.8 92 18 128/62 (84) 93 03/28/18 11:59 98.2 95 20 147/65 (92) 96 03/28/18 08:30 98.0 91 18 133/60 (84) 96 03/29/18 03/29/18 03/29/18 07:00 15:00 23:00 Intake Total 480 ml Output Total 775 ml Balance -295 ml Result Diagram: 03/28/18 0622 03/28/18 0612 Imaging Studies Last Impressions Angiography 03/25/18 0000 Signed Impressions: Service Date/Time: February 08:42 - CONCLUSION: Uncomplicated embolization of the left uterine artery Julio Gayle MD Cervical Spine MRI 03/24/18 0000 Signed Impressions: Service Date/Time: Saturday, March 24, 2018 12:00 - CONCLUSION: 1. Mild disc osteophyte complex at C5-6 with mass effect on the anterior thecal sac and mild flattening of anterior cord with no abnormal signal. 2. Mild narrowing of the neural foramina bilaterally at C5-6. Oscar Barrientos MD Pelvis Ultrasound 03/19/18 1121 Signed Impressions: Service Date/Time: Monday, March 19, 2018 17:40 - CONCLUSION: Markedly abnormal uterus which is enlarged and contains heterogeneous material including fluid within the endometrial canal. I'm not able to clearly identify a mass, however, the lower uterine segment and cervix are poorly visualized on this study. Consider MRI of the pelvis with contrast as follow. Neither ovary visualized. Sotero Fernando Jr., MD Abdomen/Pelvis CT 03/17/18 7469 Signed Impressions: Service Date/Time: Saturday, March 17, 2018 15:47 - CONCLUSION: Uterus is distended with heterogeneous debris. The appearance would be most consistent with uterine obstruction as associated with endometrial or cervical carcinoma. Mario Goodrich MD Lumbar Spine CT 03/17/18 1004 Signed Impressions: Service Date/Time: Saturday, March 17, 2018 10:39 - CONCLUSION: Extensive degenerative changes radiographically significant spinal stenosis from L2-L4. Mejia Fuentes MD FACR Head CT 03/17/18 1004 Signed Impressions: Service Date/Time: Saturday, March 17, 2018 10:36 - CONCLUSION: 1. Senescent changes with mild periventricular small vessel ischemic white matter demyelination. 2. No acute intracranial abnormality. Jaxon Rivera MD Chest X-Ray 03/17/18 1004 Signed Impressions: Service Date/Time: Saturday, March 17, 2018 10:50 - CONCLUSION: No acute disease. Mejia Fuentes MD FACR Lumbar Spine MRI 03/17/18 0000 Signed Impressions: Service Date/Time: Saturday, March 17, 2018 13:57 - CONCLUSION: 1. Very limited postcontrast images due to motion degradation. No significant abnormal enhancement although evaluation of the conus is not possible. 2. Redemonstration of advanced multilevel degenerative spondylosis of the lumbar spine with multilevel severe spinal canal narrowing most prominently at L4-5 with near-complete effacement of the central canal. 3. Multilevel variable neural foraminal stenosis most prominently on the left at L4-5 and L5-S1. 4. Please see above for detailed description of each level. Jaxon Rivera MD Administered Medications Medications (Trade) Dose Ordered Sig/Kareme Route PRN Reason Start Time Stop Time Status Last Admin Dose Admin Sodium Chloride (NS Flush) 2 ml BID IV FLUSH 03/17/18 21:00 03/28/18 21:10 Zolpidem Tartrate (Ambien) 5 mg HS PRN PO INSOMNIA 03/17/18 18:00 03/22/18 21:32 Senna/Docusate Sodium (Nargis-Colace) 1 tab BID PO 03/17/18 21:00 03/28/18 08:28 Levothyroxine Sodium (Synthroid) 112 mcg DAILY@0600 PO 03/18/18 06:00 03/29/18 04:50 Losartan Potassium (Cozaar) 100 mg DAILY PO 03/18/18 09:00 03/28/18 08:27 Hydrochlorothiazide (Hydrodiuril) 25 mg DAILY PO 03/18/18 09:00 03/28/18 08:28 Levothyroxine Sodium (Synthroid) 25 mcg DAILY@0600 PO 03/18/18 06:00 03/29/18 04:50 Atorvastatin Calcium (Lipitor) 20 mg HS PO 03/18/18 21:00 03/28/18 21:10 Donepezil HCl (Aricept) 5 mg HS PO 03/18/18 21:00 03/28/18 21:10 Fluoxetine HCl (PROzac) 20 mg BID PO 03/18/18 21:00 03/28/18 21:10 Clonidine (Catapres) 0.1 mg Q6H PRN PO SBP > 160 03/20/18 12:15 03/24/18 05:20 Amlodipine Besylate (Norvasc) 5 mg DAILY PO 03/24/18 09:00 03/28/18 08:28 Morphine Sulfate (Morphine Inj) 2 mg Q3H PRN IM PAIN SCALE 1 TO 4 03/25/18 18:00 03/25/18 21:15 Morphine Sulfate (Morphine Inj) 4 mg Q3H PRN IV PUSH BREAKTHROUGH PAIN 03/25/18 17:00 03/28/18 08:28 Prednisone (Deltasone) 20 mg DAILY PO 03/28/18 09:00 03/28/18 08:28 Oxycodone/ Acetaminophen (Percocet 7.5-325 Mg) 1 tab Q6H PRN PO PAIN SCALE 6 TO 10 03/28/18 09:00 03/29/18 04:51 Benzocaine/Menthol (Chloraseptic Pancho) 1 lozenge UNSCH PRN BUCCAL sore throat 03/29/18 00:15 03/29/18 00:21 Objective Remarks GENERAL: thin and frail, well-developed patient. SKIN: Warm and dry. HEAD: Normocephalic. EYES: No scleral icterus. No injection or drainage. e. GASTROINTESTINAL: Abdomen soft, non-tender, nondistended. SHALLOT CLEANER: packing removed, patient tolerated well, old blood noted on packing. no overt new bleeding noted once packing removed EXTREMITIES: No cyanosis, or edema. MUSCULOSKELETAL: Adequate muscle tone. NEUROLOGICAL: No obvious focal deficit. PSYCHIATRIC: Appropriate mood and affect Assessment/Plan Problem List: (1) Sarcoma ICD Codes: C49.9 - Malignant neoplasm of connective and soft tissue, unspecified Status: Chronic Plan: continue palliative radiation to help control vaginal bleeding plan to discharge to [facility] consulted ok to discharge per SHALLOT CLEANER/ONC as packing has been removed final pathology: sarcoma discussed with patient and her daughter Kathy DominiqueDarren WHITT Mar 29, 2018 08:14
[2018-03-29] MEDS: SODIUM CHLORIDE 0.9% FLUSH 10 ML FLUSH IV FLUSH SCH ×2 (08:15→21:00)
[2018-03-29 12:00] VITALS: BP 126/60; PULSE 67; RESP 18; TEMP 97.9; O2SAT 95
--- NOTE | 2018-03-29 14:47 | HHI.PR ---
Subjective Remarks patient feels okay today. Denies any pain at this time. Denies any chest pain , shortness of breath, nausea or vomiting. Family at bedside. Patient's daughter tells me that she has made arrangements for pickup on Thursday from the SNF/rehab for her to get her radiation treatments. Physical therapy has not yet seen patient today. Objective Vitals Vital Signs Date Time Temp Pulse Resp B/P (MAP) Pulse Ox O2 Delivery O2 Flow Rate FiO2 03/29/18 12:00 97.9 67 18 126/60 (82) 95 03/29/18 05:51 16 03/29/18 04:46 98.4 73 19 129/69 (89) 96 03/29/18 00:20 98.3 87 16 125/63 (83) 96 03/28/18 21:06 99.1 93 16 138/69 (92) 97 03/28/18 16:20 98.8 92 18 128/62 (84) 93 I/O 03/28/18 03/28/18 03/28/18 03/29/18 03/29/18 03/29/18 07:00 15:00 23:00 07:00 15:00 23:00 Intake Total 240 ml 600 ml 480 ml Output Total 850 ml 700 ml 775 ml 900 ml Balance -610 ml -100 ml -295 ml -900 ml Intake Oral 240 ml 600 ml 480 ml Output Urine Total 850 ml 700 ml 775 ml 900 ml Result Diagram: 03/28/18 0622 03/28/18 0612 Imaging Last Impressions Angiography 03/25/18 0000 Signed Impressions: Service Date/Time: February 08:42 - CONCLUSION: Uncomplicated embolization of the left uterine artery Julio Gayle MD Cervical Spine MRI 03/24/18 0000 Signed Impressions: Service Date/Time: Saturday, March 24, 2018 12:00 - CONCLUSION: 1. Mild disc osteophyte complex at C5-6 with mass effect on the anterior thecal sac and mild flattening of anterior cord with no abnormal signal. 2. Mild narrowing of the neural foramina bilaterally at C5-6. Oscar Barrientos MD Pelvis Ultrasound 03/19/18 1121 Signed Impressions: Service Date/Time: Monday, March 19, 2018 17:40 - CONCLUSION: Markedly abnormal uterus which is enlarged and contains heterogeneous material including fluid within the endometrial canal. I'm not able to clearly identify a mass, however, the lower uterine segment and cervix are poorly visualized on this study. Consider MRI of the pelvis with contrast as follow. Neither ovary visualized. Sotero Fernando Jr., MD Abdomen/Pelvis CT 03/17/18 1449 Signed Impressions: Service Date/Time: Saturday, March 17, 2018 15:47 - CONCLUSION: Uterus is distended with heterogeneous debris. The appearance would be most consistent with uterine obstruction as associated with endometrial or cervical carcinoma. Mario Goodrich MD Lumbar Spine CT 03/17/18 1004 Signed Impressions: Service Date/Time: Saturday, March 17, 2018 10:39 - CONCLUSION: Extensive degenerative changes radiographically significant spinal stenosis from L2-L4. Mejia Fuentes MD FACR Head CT 03/17/18 1004 Signed Impressions: Service Date/Time: Saturday, March 17, 2018 10:36 - CONCLUSION: 1. Senescent changes with mild periventricular small vessel ischemic white matter demyelination. 2. No acute intracranial abnormality. Jaxon Rivera MD Chest X-Ray 03/17/18 1004 Signed Impressions: Service Date/Time: Saturday, March 17, 2018 10:50 - CONCLUSION: No acute disease. Mejia Fuentes MD FACR Lumbar Spine MRI 03/17/18 0000 Signed Impressions: Service Date/Time: Saturday, March 17, 2018 13:57 - CONCLUSION: 1. Very limited postcontrast images due to motion degradation. No significant abnormal enhancement although evaluation of the conus is not possible. 2. Redemonstration of advanced multilevel degenerative spondylosis of the lumbar spine with multilevel severe spinal canal narrowing most prominently at L4-5 with near-complete effacement of the central canal. 3. Multilevel variable neural foraminal stenosis most prominently on the left at L4-5 and L5-S1. 4. Please see above for detailed description of each level. Jaxon Rivera MD Objective Remarks more alert today Clear lungs BL RRR, no MRG abdomen soft, some tenderness to palpation of hypogastric region, no rebound tenderness moves ext upon request Procedures none A/P Problem List: (1) Uterine infection ICD Code: N71.9 - Inflammatory disease of uterus, unspecified Status: Acute (2) Rhabdomyolysis ICD Code: M62.82 - Rhabdomyolysis Status: Acute (3) Back pain ICD Code: M54.9 - Dorsalgia, unspecified Status: Acute (4) Uterine mass ICD Code: N85.9 - Noninflammatory disorder of uterus, unspecified Status: Acute (5) Vaginal bleeding ICD Code: N93.9 - Abnormal uterine and vaginal bleeding, unspecified Status: Acute (6) Leukocytosis ICD Code: D72.829 - Elevated white blood cell count, unspecified (7) Sepsis ICD Code: A41.9 - Sepsis, unspecified organism (8) Central stenosis of spinal canal ICD Code: M48.00 - Spinal stenosis, site unspecified Assessment and Plan This is a 72-year-old female patient who initially presented to the ER after a fall, thought to be due to multiple sclerosis versus autoimmune disease. She was subsequently noted to have vaginal bleeding during her MRI, a CT was performed which showed heterogeneous degrees. 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 Uterine mass with vaginal bleeding CA-19-9 and CEA 125 elevated See imaging above, ultrasound shows widespread abnormality The patient has been seen and evaluated by Dr. 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 She is status post arterial embolization. XRT forthcoming. Dr. Bennett has recommended palliative care. Pathology shows adenocarcinoma of endometrium, the possibility of carcinosarcoma has not been excluded. Family would like to hold off on hospice and will revisit hospice once radiation treatment completed. daughter has made arrangements for her mother to go [facility] and rehab. however PT hasn't yet evaluated pt today and transportation from [facility] has been set up to be started on thursday. BPV Initial concern was for MS exacerbation due to questionable history of MS. Symptoms most consistent with BPPV at this time. Her dizziness has resolved. She is status post IV Solu-Medrol and currently is on a prednisone taper. Currently on prednisone 20 mg daily continue to taper down and will switch to 10mg po daily. Hypertension Continue patient's home meds Dementia Currently at baseline per patient's daughter Hypothyroidism Continue patient's home levothyroxine Low back pain/lumbar stenosis Seen and evaluated by neurosurgery. Recommend out of bed with assistance, continue with PT. Patient to be watched closely for progressive radiculopathy and development of cauda equina syndrome. See imaging above. DVT prophylaxis with bilateral SCDs, hold chemical prophylaxis given vaginal bleeding. Hospice was consulted on 03/26, she is in their system Discharge Planning Neurosurgery has cleared patient Dr. Bennett has also cleared the pt. PT needs to see pt today and make final recs Anticipate d/c tomorrow after radiation treatment at 1:30 pm Problem Qualifiers (1) Rhabdomyolysis: Qualified Codes: T79.6XXA - Traumatic ischemia of muscle, initial encounter (2) Back pain: Qualified Codes: M54.5 - Low back pain; G89.29 - Other chronic pain (3) Leukocytosis: Qualified Codes: D72.829 - Elevated white blood cell count, unspecified (4) Sepsis: Qualified Codes: A41.9 - Sepsis, unspecified organism Aracelis Avery MD Mar 29, 2018 14:47
[2018-03-29 15:44] VITALS: BP 119/58; PULSE 87; RESP 18; TEMP 97.8; O2SAT 99
[2018-03-29 20:00] VITALS: BP 133/63; PULSE 96; RESP 20; TEMP 98.6; O2SAT 97
[2018-03-29] MEDS: DONEPEZIL HCL 5 MG TAB PO SCH (21:01)
[2018-03-29] MEDS: ATORVASTATIN 20 MG TAB PO SCH (21:01)
[2018-03-30] VITALS: BP 156/72; PULSE 81; RESP 18; TEMP 98; O2SAT 96
[2018-03-30 04:00] VITALS: BP 157/75; PULSE 83; RESP 20; TEMP 97.9; O2SAT 97
[2018-03-30] MEDS: oxyCODONE/ACETAMINOPHEN 7.5 MG/325 MG TAB PO PRN ×4 (05:41→23:44)
[2018-03-30] MEDS: LEVOTHYROXINE SODIUM 112 MCG TAB PO SCH (05:41)
[2018-03-30] MEDS: LEVOTHYROXINE SODIUM 25 MCG TAB PO SCH (05:41)
[2018-03-30 07:51] LABS: HEMATOCRIT 25.5 % (35.0-46.0); HEMOGLOBIN 8.6 GM/DL (11.6-15.3)
[2018-03-30 08:28] VITALS: BP 145/72; PULSE 74; RESP 18; TEMP 97.7; O2SAT 99
[2018-03-30] MEDS: FLUoxetine HCL 20 MG CAP PO SCH ×2 (08:31→21:26)
[2018-03-30] MEDS: DOCUSATE SODIUM 50 MG/SENNA 8.6 MG TAB PO SCH ×2 (08:31→21:26)
[2018-03-30] MEDS: amLODIPine BESYLATE 5 MG TAB PO SCH (08:32)
[2018-03-30] MEDS: HYDROCHLOROTHIAZIDE 25 MG TAB PO SCH (08:32)
[2018-03-30] MEDS: SODIUM CHLORIDE 0.9% FLUSH 10 ML FLUSH IV FLUSH SCH ×2 (08:32→21:27)
[2018-03-30] MEDS: predniSONE 10 MG TAB PO SCH (08:32)
[2018-03-30] MEDS: LOSARTAN 50 MG TAB PO SCH (08:32)
[2018-03-30 12:00] VITALS: BP 145/75; PULSE 89; RESP 18; TEMP 98.3; O2SAT 98
[2018-03-30] MEDS ORDERED: PRED10 PO (15:44)
[2018-03-30] MEDS ORDERED: OXYC1TAB35 PO (15:44)
[2018-03-30] MEDS ORDERED: AMLO5 PO (15:44)
[2018-03-30] MEDS ORDERED: HYDR25TA5 PO (15:44)
--- NOTE | 2018-03-30 15:49 | HHI.DS ---
Discharge Summary Admission Date Mar 17, 2018 at 16:58 Discharge Date: March 30, 2018 Admitting Diagnosis Uterine obstruction rule out carcinoma, inability to ambulate, leuko (1) Uterine infection ICD Code: N71.9 - Inflammatory disease of uterus, unspecified Status: Acute (2) Rhabdomyolysis ICD Code: M62.82 - Rhabdomyolysis Status: Acute (3) Back pain ICD Code: M54.9 - Dorsalgia, unspecified Status: Acute (4) Uterine mass ICD Code: N85.9 - Noninflammatory disorder of uterus, unspecified Status: Acute (5) Vaginal bleeding ICD Code: N93.9 - Abnormal uterine and vaginal bleeding, unspecified Status: Acute (6) Leukocytosis ICD Code: D72.829 - Elevated white blood cell count, unspecified (7) Sepsis ICD Code: A41.9 - Sepsis, unspecified organism (8) Central stenosis of spinal canal ICD Code: M48.00 - Spinal stenosis, site unspecified Procedures Examination under anesthesia, removal of necrotic mass extending through the introitus approximately 10 cm in diameter with large multiple biopsies of tissue in the vagina and against the right upper vaginal sidewall, vaginal packing and Alejandro catheter placement for acquisition of hemostasis. Brief History - From Admission Mrs. Downing is a 72-year-old female. She is here today after having a gradual onset of weakness. She says she has had an onset of dyspepsia, headache and lower extremity numbness. Over the past 1-2 weeks. Just over the past 2 days she has had a acute worsening of her weakness and had 2 falls. She may have multiple sclerosis. At the age of 22 she had some sort of exacerbation and was suspected to have multiple sclerosis. She has not had exacerbations since then. This could be multiple sclerosis or alternative autoimmune exacerbation. She also complains of vaginal bleeding. Gynecology has been consulted in this regard. No other complaints today. CBC/BMP: 03/30/18 0639 03/28/18 0612 Significant Findings Laboratory Tests Test 03/28/18 06:12 03/28/18 06:22 03/30/18 06:39 White Blood Count 41.9 TH/MM3 (4.0-11.0) Red Blood Count 2.77 MIL/MM3 (4.00-5.30) Hemoglobin 8.7 GM/DL (11.6-15.3) 8.6 GM/DL (11.6-15.3) Hematocrit 25.7 % (35.0-46.0) 25.5 % (35.0-46.0) Platelet Count 470 TH/MM3 (150-450) Neutrophils (%) (Auto) 90.1 % (16.0-70.0) Lymphocytes (%) (Auto) 4.5 % (9.0-44.0) Neutrophils # (Auto) 37.7 TH/MM3 (1.8-7.7) Monocytes # (Auto) 2.2 TH/MM3 (0-0.9) Neutrophils % (Manual) 78 % (16-70) Neutrophils # (Manual) 35.2 TH/MM3 (1.8-7.7) Platelet Estimate HIGH (NORMAL) PE at Discharge more alert today Clear lungs BL RRR, no MRG abdomen soft, some tenderness to palpation of hypogastric region, no rebound tenderness moves ext upon request Pt update on day of discharge Pt did well w radiation treatment today. Eager to be discharged. Daughter at bedside and no concerns. No vaginal bleeding today. No lightheadedness, mild vertigo (which is chronic for her). Hospital Course This is a 72-year-old female patient who initially presented to the ER after a fall, thought to be due to multiple sclerosis versus autoimmune disease. She was subsequently noted to have vaginal bleeding during her MRI, a CT was performed which showed heterogeneous degrees. 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 Uterine mass with vaginal bleeding CA-19-9 and CEA 125 elevated See imaging above, ultrasound shows widespread abnormality The patient has been seen and evaluated by Dr. 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 She is status post arterial embolization. XRT forthcoming. Dr. Bennett has recommended palliative care. Pathology shows adenocarcinoma of endometrium, the possibility of carcinosarcoma has not been excluded. Family would like to hold off on hospice and will revisit hospice once radiation treatment completed. daughter has made arrangements for her mother to go [facility] and rehab. however PT hasn't yet evaluated pt today and transportation from [facility] has been set up to be started on thursday. BPV Initial concern was for MS exacerbation due to questionable history of MS. Symptoms most consistent with BPPV at this time. Her dizziness has resolved. She is status post IV Solu-Medrol and currently is on a prednisone taper. Currently on prednisone 10 mg daily continue to taper down Low back pain/lumbar stenosis Seen and evaluated by neurosurgery. Recommend out of bed with assistance, continue with PT. Patient to be watched closely for progressive radiculopathy and development of cauda equina syndrome. See imaging above. HTN: on amlodipine and HCTZ DVT prophylaxis with bilateral SCDs, hold chemical prophylaxis given vaginal bleeding. Hospice was consulted on 03/26, she is in their system Pt Condition on Discharge: Stable Discharge Disposition: Discharge to SNF Discharge Time: > 30 minutes Discharge Instructions DIET: Follow Instructions for: As Tolerated, No Restrictions Activities you can perform: Regular-No Restrictions Follow up Referrals: [facility] - 3-5 Days with Barbie Bennett MD PCP Follow-up - 1 Week New Medications: Amlodipine (Norvasc) 5 Mg Tab 5 MG PO DAILY, #30 TAB Hydrochlorothiazide (Hydrochlorothiazide) 25 Mg Tab 25 MG PO DAILY, #30 TAB Oxycodone HCl/Acetaminophen (Oxycodon-Acetaminophen 7.5-325) 7.5 Mg-325 Mg Tablet 1 TAB PO Q6H PRN for PAIN SCALE 6 TO 10, #20 Prednisone (Prednisone) 10 Mg Tab 10 MG PO DAILY, #4 TAB 10 mg po daily x 2 days then 5 mg po daily x 4 days then d/c Continued Medications: Aspirin (Aspirin Children's) 81 Mg Chew 81 MG CHEW DAILY, TAB 0 Refills Atorvastatin (Atorvastatin) 20 Mg Tab 20 MG PO HS for Cholesterol Management, #30 TAB 0 Refills Donepezil (Donepezil) 5 Mg Tab 5 MG PO HS for Dementia, #30 TAB 0 Refills Fluoxetine (Fluoxetine) 20 Mg Capsule 20 MG PO BID, #30 CAP 0 Refills Levothyroxine (Levothyroxine) 137 Mcg Tab 137 MCG PO DAILY for Thyroid, #30 TAB 0 Refills Losartan-Hydrochlorothiazide (Losartan-Hydrochlorothiazide) 100-25 Mg Tab 1 TAB PO DAILY for Blood Pressure Management, #30 TAB 0 Refills Discontinued Medications: Tramadol (Tramadol) 50 Mg Tab 50 MG PO Q6H PRN for PAIN, #12 TAB 0 Refills Bennie,Aracelis MD March 30, 2018 15:49
[2018-03-30 17:04] VITALS: BP 136/67; PULSE 98; RESP 18; TEMP 98.1; O2SAT 98
[2018-03-30 21:19] VITALS: BP 147/74; PULSE 92; RESP 16; TEMP 98.2; O2SAT 99
[2018-03-30] MEDS: DONEPEZIL HCL 5 MG TAB PO SCH (21:26)
[2018-03-30] MEDS: ATORVASTATIN 20 MG TAB PO SCH (21:27)
[2018-03-31] VITALS: BP 165/76; PULSE 87; RESP 18; TEMP 97.4; O2SAT 100
[2018-03-31 04:36] VITALS: BP 150/71; PULSE 78; RESP 16; TEMP 98.5; O2SAT 98
[2018-03-31] MEDS: LEVOTHYROXINE SODIUM 112 MCG TAB PO SCH (06:07)
[2018-03-31] MEDS: LEVOTHYROXINE SODIUM 25 MCG TAB PO SCH (06:07)
[2018-03-31 08:00] VITALS: BP 138/72; PULSE 82; RESP 18; TEMP 97.7; O2SAT 99
[2018-03-31] MEDS: SODIUM CHLORIDE 0.9% FLUSH 10 ML FLUSH IV FLUSH SCH (09:00)
[2018-03-31] MEDS: LOSARTAN 50 MG TAB PO SCH (09:12)
[2018-03-31] MEDS: DOCUSATE SODIUM 50 MG/SENNA 8.6 MG TAB PO SCH (09:12)
[2018-03-31] MEDS: HYDROCHLOROTHIAZIDE 25 MG TAB PO SCH (09:13)
[2018-03-31] MEDS: FLUoxetine HCL 20 MG CAP PO SCH (09:13)
[2018-03-31] MEDS: predniSONE 10 MG TAB PO SCH (09:13)
[2018-03-31] MEDS: amLODIPine BESYLATE 5 MG TAB PO SCH (09:13)
[2018-03-31] MEDS: oxyCODONE/ACETAMINOPHEN 7.5 MG/325 MG TAB PO PRN ×2 (09:31→13:13)
[2018-03-31 12:00] VITALS: BP 148/76; PULSE 78; RESP 20; TEMP 98; O2SAT 99
== END 2018-03-31 14:00 | DRG 853 ==
LOC: PHED 09:55 → PHEDA 16:58 → NEPHCDU 22:57 → HCIN 03-19 12:18
PROVIDERS: ADMIT Hospitalist; ATTEND Hospitalist
PROC: 0UBC7ZX Excision of Cervix, Via Natural or Artificial Opening, Diagnostic (ICD-10-PCS; 2018-03-25)
PROC: 0UBG7ZX Excision of Vagina, Via Natural or Artificial Opening, Diagnostic (ICD-10-PCS; 2018-03-25)
PROC: B410YZZ Fluoroscopy of Abdominal Aorta using Other Contrast (ICD-10-PCS; 2018-03-25)
PROC: 04LF3DU Occlusion of Left Uterine Artery with Intraluminal Device, Percutaneous Approach (ICD-10-PCS; principal; 2018-03-25 06:49)
DX: A41.9 Sepsis, unspecified organism (principal); G92 Toxic encephalopathy; C49.5 Malignant neoplasm of connective and soft tissue of pelvis; M62.82 Rhabdomyolysis; G62.9 Polyneuropathy, unspecified; F03.90 Unspecified dementia, unspecified severity, without behavioral disturbance, psychotic disturbance, mood disturbance, and anxiety; C54.1 Malignant neoplasm of endometrium; N95.0 Postmenopausal bleeding; M19.90 Unspecified osteoarthritis, unspecified site; I10 Essential (primary) hypertension; E78.5 Hyperlipidemia, unspecified; E03.9 Hypothyroidism, unspecified; M48.061 Spinal stenosis, lumbar region without neurogenic claudication; M47.816 Spondylosis without myelopathy or radiculopathy, lumbar region; M54.5 Low back pain; G89.29 Other chronic pain; R63.4 Abnormal weight loss; H81.10 Benign paroxysmal vertigo, unspecified ear; H54.7 Unspecified visual loss; F41.9 Anxiety disorder, unspecified; Z80.3 Family history of malignant neoplasm of breast; Z91.81 History of falling
CPT/HCPCS: 36247; 37243; 70450; 71045; 72131; 72141; 72158; 74177; 75625; 75774; 76830; 76856; 76937; 77290; 77300; 77334; 77412; 80048; 80053; 80307; 81001; 82378; 82550; 82552; 82977; 83735; 84484; 85007; 85014; 85018; 85025; 85027; 85610; 85730; 86301; 86304; 86850; 86900; 86901; 87070; 87077; 87086; 87186; 87205; 88305; 88331; 93005; 96361; 96374; 96375; 99152; 99153; 99231; A9579; C1769; C1887; C1894; J0360; J1170; J1650; J2250; J2270; J2405; J2920; J2930; J3010; J3480; J7030; J7040; J7120; J7512; Q9967